=== PATIENT | female | born 1965 | race African-American/Black ===

== ENCOUNTER 2016-10-12 04:09 | Emergency (ER) | payer MEDICARE, OTHER ==
--- NOTE | 2016-10-12 05:04 | ED Physician Chart ---
Chief Complaint/HPI - Patient Information Date Seen:: 10/12/16 Time Seen:: 04:10 Chief Complaint:: Foot Pain History of Present Illness:: onset x 2 days of intermittent bilateral foot and ankle pain; no known injuries but pt states the foot/ankle pain occurs with movements; pt is ambulatory; no prolonged inactivity; no paresthesias, gait changes, weakness, or pain radiation ; denies C/P, dyspnea, abdominal pain, A/N/V/D/C, fever, chills, cough, hemoptysis, neck pain, H/As, vertigo, visual changes; no LOC, ALOC, syncope, or near-syncope Allergies:: Allergies Allergy/AdvReac Type Severity Reaction Status Date / Time Sulfa (Sulfonamide Allergy Verified 10/12/16 04:31 Antibiotics) Vitals:: Vital Signs - 8 hr 10/12/16 04:10 Temp 97.3 F HR 78 RR 19 BP 148/100 O2 Sat % 100 Historian:: Patient, EMS Review:: Nurse's Note Reviewed, Transfer documents Reviewed Review of Systems - Review of Systems General/Constitutional: Fever, Chills, No weight loss, No weakness, No diaphoresis, No edema, No loss of appetite Skin: No skin lesions, No rash, No bruising Head: No headache, No light-headedness Eyes: No loss of vision, No pain, No diplopia ENT: No earache, No nasal drainage, No sore throat, No tinnitus Neck: No neck pain, No swelling, No thyromegaly, No stiffness, No mass noted Cardio Vascular: No chest pain, No palpitations, No PND, No orthopnea, No edema Pulmonary: No SOB, No cough, No sputum, No wheezing GI: Nausea, Vomiting, Diarrhea, No pain, No melena, No hematochezia, Constipation, No hematemesis G/U: No dysuria, No frequency, No hematuria Golf Course Manager: No vaginal discharge, No abnormal vaginal bleed, No contraction Musculoskeletal: Bone or joint pain, No back pain, Muscle pain Endocrine: No polyuria, No polydipsia Psychiatric: Prior psych history, Depression, Anxiety, No suicidal ideation, No homicidal ideation, Auditory hallucination, Visual hallucination Hematopoietic: No bruising, No lymphadenopathy Allergic/Immuno: No urticaria, No angioedema Neurological: No syncope, No focal symptoms, No weakness, No paresthesia, No headache, No seizure, No dizziness, No confusion, No vertigo Past Medical History - Past Medical History Past Medical History: HTN, CHF, Arthritis, Other (Gout; Hemachromatosis) Family History: HTN Social History: Non Smoker, No Alcohol, No Drug Use, Single, Homeless, Lives Alone Surgical History: other (BTL) Psychiatricy History: Depression, Bipolar Medication: Reviewed Family Medical History - Family Member Mother History Unknown: Yes Physical Exam - Physical Examination General/Constitutional: Awake, Well-developed, well-nourished, Alert, No distress, GCS 15, Non-toxic appearing, Ambulatory Head: Atraumatic Eyes: Lids, conjuctiva normal, PERRL, EOMI Skin: Nl inspection, No rash, No skin lesions, No ecchymosis, Well hydrated, No lymphadenopathy Other Skin comments:: No Cellulitis ENMT: External ears, nose nl, Nasal exam nl, Lips, teeth, gums nl Neck: Nontender, Full ROM w/o pain, No JVD, No nuchal rigidity, No bruit, No mass, No stridor Respiratory: Nl effort/Exclusion, Clear to Auscultation, No Wheeze/Rhonchi/Rales Cardio Vascular: RRR, No murmur, gallop, rubs, NL S1 S2 GI: No tenderness/rebounding/guarding, No organomegaly, No hernia, Normal BS's, Nondistended, No mass/bruits, No McBurney tenderness : No CVA tenderness Extremities: No tenderness or effusion, Full ROM, normal strength in all extremities, No edema, Normal digits & nails Other Extremities comments:: No Cellulitis; no FBs Neuro/Psych: Alert/oriented, DTR's symmetric, Normal sensory exam, Normal motor strength, Judgement/insight normal, Mood normal, Normal gait, No focal deficits Misc: normal gait, Normal back, No paraspinal tenderness Labs/Radiology/EKG Results - Radiology Results Results: pt deferred X-Rays; pt deferred U/S Assessment - Procedures Procedures:: Splint applied to Right Ankle and Right Foot; Pt has Splint on Left Ankle and Foot and deferred a new Splint/Brace on Left Foot and Ankle and crutches Informed Consent: Procedure/risk/benefits explained by MD: Yes ED Septic Shock - . Is Septic Shock (SBP<90, OR Lactate>4 mmol\L) present?: No - <6hrs of presentation: Vital Signs: Vital Signs - 8 hr 10/12/16 04:10 Temp 97.3 F HR 78 RR 19 BP 148/100 O2 Sat % 100 Reassessment (Disposition) - Reassessment Reassessment Condition:: Improved - Diagnosis Diagnosis:: Sprains and Strains; Bilateral Foot and Ankle Sprains; Ankle and Foot Pain - Aftercare/Follow up Instructions Aftercare/Follow-Up Instructions:: Counseled pt regarding lab results/diagnosis & need follow up, Refer to Discharge Instructions, Counseled pt & family regarding lab results/diagnosis & need follow up Medication Prescribed:: Splints/Braces to Both Ankles and Feet; Use Crutches, Walker, and/or Cane - Patient Disposition Discharge/Transfer:: Home Condition at Disposition:: Stable, Improved (RTER prn if existing s/s reoccur and/or get worse and/or any new s/s occur; ACIs given for all Dx; Refer to Orthopedist/Prototype Deicer Assembler SHERRY; F/U with PMD in one day or prn; RTER prn if concerned)
== END 2016-10-12 09:38 | disposition home or self-care (01) ==
LOC: ER 04:09
DX: S93.401A Sprain of unspecified ligament of right ankle, initial encounter (principal); S93.402A Sprain of unspecified ligament of left ankle, initial encounter; S93.602A Unspecified sprain of left foot, initial encounter; S93.601A Unspecified sprain of right foot, initial encounter; I10 Essential (primary) hypertension; I11.0 Hypertensive heart disease with heart failure; I50.9 Heart failure, unspecified; F31.9 Bipolar disorder, unspecified; Z88.2 Allergy status to sulfonamides; X58.XXXA Exposure to other specified factors, initial encounter; Y93.89 Activity, other specified; Y92.89 Other specified places as the place of occurrence of the external cause; Y99.8 Other external cause status
CPT/HCPCS: Z7502

== ENCOUNTER 2018-06-22 22:41 | Inpatient (IN) | payer MEDICARE, MEDICAID ==
[2018-06-22] MEDS ORDERED: Haloperidol Lactate 5 mg/mL 1mL Vial ONE (23:08)
--- NOTE | 2018-06-22 23:12 | ED Physician Chart ---
ED Chief Complaint/HPI - Patient Information Date Seen:: 06/22/18 Time Seen:: 23:06 Chief Complaint:: increased agitation History of Present Illness:: 53 yr old female with agitation psychosis from [facility] with psychosis bipolar disorder gerd paranoid schizophrenia dvt rle depression anxiety impulse disorder gerd Allergies:: Allergies Allergy/AdvReac Type Severity Reaction Status Date / Time Sulfa (Sulfonamide Allergy Verified 06/22/18 22:45 Antibiotics) Vitals:: Vital Signs - 8 hr 06/22/18 22:45 Temp 98.1 F HR 85 RR 18 BP 140/70 O2 Sat % 97 ED Review of Systems - Review of Systems General/Constitutional: No fever, No chills, No weight loss, No weakness, No diaphoresis, No edema, No loss of appetite Skin: No skin lesions, No rash, No bruising Head: No headache, No light-headedness Eyes: No loss of vision, No pain, No diplopia ENT: No earache, No nasal drainage, No sore throat, No tinnitus Neck: No neck pain, No swelling, No thyromegaly, No stiffness, No mass noted Cardio Vascular: No chest pain, No palpitations, No PND, No orthopnea, No edema Pulmonary: No SOB, No cough, No sputum, No wheezing GI: No nausea, No vomiting, No diarrhea, No pain, No melena, No hematochezia, No constipation, No hematemesis G/U: No dysuria, No frequency, No hematuria Musculoskeletal: No bone or joint pain, No back pain, No muscle pain Endocrine: No polyuria, No polydipsia Psychiatric: No prior psych history, No depression, No anxiety, No suicidal ideation Hematopoietic: No bruising, No lymphadenopathy Allergic/Immuno: No urticaria, No angioedema Neurological: No syncope, No focal symptoms, No weakness, No paresthesia, No headache, No seizure, No dizziness, No confusion, No vertigo ED Past Medical History - Past Medical History Past Medical History: Other (see hpi) Family Medical History - Family Member Mother History Unknown: Yes ED Physical Exam - Physical Examination General/Constitutional: Awake Head: Atraumatic Eyes: Lids, conjuctiva normal Skin: Nl inspection ENMT: External ears, nose nl Neck: Nontender Respiratory: Nl effort/Exclusion Cardio Vascular: RRR GI: No tenderness/rebounding/guarding : No CVA tenderness Extremities: No tenderness or effusion Neuro/Psych: Alert/oriented (psychosis pt yelling screaming at staff was [facility] meds in [facility]) ED Labs/Radiology/EKG Results - Lab Results Results: Laboratory Tests 06/22/18 22:58 POC Glucose 126 H ED Assessment - Assessment General Assessment: psychosis agitation ED Septic Shock - . Is Septic Shock (SBP<90, OR Lactate>4 mmol\L) present?: No - <6hrs of presentation: Vital Signs: Vital Signs - 8 hr 06/22/18 22:45 Temp 98.1 F HR 85 RR 18 BP 140/70 O2 Sat % 97 ED Reassessment (Disposition) - Reassessment Reassessment:: psychosis agitation - Diagnosis Diagnosis:: bilateral om - Patient Disposition Discharge/Transfer:: Acute Care w/in this hosp Admitted to:: Med/Surg Condition at Disposition:: Stable
[2018-06-22 23:43] LABS: URINE SOURCE CLEAN C
[2018-06-22 23:56] LABS: INR 1.02 (0.5-1.4); PROTHROMBIN TIME (TEST) 10.6 SECONDS (9.5-11.5)
[2018-06-22 23:59] LABS: ALB/GLOB RATIO 1.2 (1.0-1.8); ALKALINE PHOSPHATASE 65 U/L (34-104); ANION GAP 13.1 (7.0-16.0); BILIRUBIN,TOTAL 0.7 mg/dL (0.3-1.0); BUN - UREA NITROGEN 13 mg/dL (7-25); CALCIUM SERUM 9.1 mg/dL (8.6-10.3); CARBON DIOXIDE 27.5 mEq/L (21.0-31.0); CHLORIDE 102 mEq/L (98-107); CREATININE - SERUM 0.7 mg/dL (0.6-1.2); GFR AFRICAN-AMERICAN > 60.0 ml/min (>90); GFR NON AFRICAN-AMERICAN > 60.0 ml/min; GLUCOSE 137 mg/dL (70-105); POTASSIUM SERUM 3.6 mEq/L (3.5-5.1); SGOT 35 U/L (13-39); SGPT/ALT 34 U/L (7-52); SODIUM SERUM 139 mEq/L (136-145); TOTAL PROTEIN,SERUM 7.4 gm/dL (6.0-8.3)
[2018-06-23 00:02] LABS: URINE BILIRUBIN NEGATIVE (NEGATIVE); URINE BLOOD NEGATIVE (NEGATIVE); URINE GLUCOSE (UA) NEGATIVE (NEGATIVE); URINE KETONE TRACE mg/dL (NEGATIVE); URINE LEUKOCYTE ESTERASE NEGATIVE (NEGATIVE); URINE NITRATE NEGATIVE (NEGATIVE); URINE PH 5.5 (4.6 - 8.0); URINE PROTEIN NEGATIVE (NEGATIVE); URINE UROBILINOGEN 0.2 E.U./dL (0.2 - 1.0)
[2018-06-23 00:11] LABS: URINE CLARITY CLEAR (CLEAR); URINE COLOR STRAW
[2018-06-23 00:12] LABS: URINE MICROSCOPIC INDICATED? YES
[2018-06-23 00:15] LABS: URINE BACTERIA NONE SEEN /hpf (NONE SEEN); URINE EPITHELIAL CELLS RARE /lpf (FEW); URINE RBC NONE SEEN /hpf (0-5); URINE WBC NONE SEEN /hpf (0-5)
[2018-06-23 00:30] LABS: AMPHETAMINE URINE NEGATIVE (NEGATIVE); BARBITURATES URINE NEGATIVE (NEGATIVE); BENZODIAZEPINES QUAL URINE NEGATIVE (NEGATIVE); CANNABINOID THC NEGATIVE (NEGATIVE); COCAINE METABOLITE QUAL URINE NEGATIVE (NEGATIVE); METHADONE URINE NEGATIVE (NEGATIVE); METHAMPHETAMINES QUAL URINE NEGATIVE (NEGATIVE); OPIATES (MORPHINE) QUAL. URINE NEGATIVE (NEGATIVE); PHENCYCLIDINE (PCP) URINE NEGATIVE (NEGATIVE); TRICYCLICS (TCA) QUAL. URINE NEGATIVE (NEGATIVE)
[2018-06-23 00:41] LABS: BASOPHILE ABSOLUTE 0.1 Th/cumm (0-0.2); EOSINOPHILE ABSOLUTE 0.1 Th/cmm (0.1-0.4); HEMATOCRIT 35.9 % (41.0-60); HEMOGLOBIN 12.1 gm/dL (12-16); LYMPHOCYTE ABSOLUTE 2.7 Th/cmm (1.5-3.0); MEAN CELL VOLUME 95.6 fl (81-100); MEAN CORPUSCULAR HEMOGLOBIN 32.3 pg (27.0-31.0); MEAN CORPUSCULAR HGB CONC 33.8 pg (28.0-36.0); MEAN PLATELET VOLUME 8.8 fl; NEUTROPHILE ABSOLUTE 2.7 Th/cmm (1.8-8.0); PLATELET COUNT 217 Th/cmm (150-400); RED BLOOD COUNT 3.75 Mil/cmm (3.80-5.10); RED CELL DISTRIBUTION WIDTH 12.7 % (11.5-20.0); WHITE BLOOD COUNT 6.6 Th/cmm (4.8-10.8)
[2018-06-23] MEDS ORDERED: Haloperidol Lactate 5 mg/mL 1mL Vial IM ONE ×2 (01:03→13:41)
[2018-06-23 01:15] LABS: LYMPHOCYTE 40 % (20-50); MONOCYTE 12 % (2-10); NEUTROPHILS 48 % (40-80)
[2018-06-23 01:52] VITALS: BP 140/70
[2018-06-23] MEDS ORDERED: Dextrose 50% 50 mL Abboject IVP PRN (02:20)
[2018-06-23] MEDS ORDERED: GLUCAGON HCl 1 MG KIT IM PRN (02:20)
[2018-06-23 02:37] LABS: CHOLESTEROL 132 mg/dL (<200); HDL -HIGH DENSITY LIPOPROTEIN 49 mg/dL (23-92); TRIGLYCERIDES 73 mg/dL (<150)
[2018-06-23] MEDS: INSULIN LISPRO SLIDING SCALE 100 UNITS/ML UNIT SUBQ SCH ×4 (06:53→20:39)
[2018-06-23] MEDS: Pantoprazole 40 mg/Packet PO SCH (06:54)
--- NOTE | 2018-06-23 13:46 | History & Physical ---
ADMIT DATE: 06/23/2018 CHIEF COMPLAINT: Increased agitation. HISTORY OF PRESENT ILLNESS: This is a 53-year-old female who is a jail resident, admitted to the Geropsych Unit due to 1-day history of agitation. PAST MEDICAL HISTORY: CHF, psychosis, type 2 diabetes, hypertension, GERD, DVT. SOCIAL HISTORY: The patient is a jail resident, requiring 24-hour nursing care. ALLERGIES: To SULFA. HOME MEDICATIONS: Please see medication list. REVIEW OF SYSTEMS: GENERAL: Denies any fever or chills. CARDIOVASCULAR: Denies chest pain. RESPIRATORY: Denies shortness of breath. GASTROINTESTINAL: Denies nausea, vomiting, abdominal pain. GENITOURINARY: Denies increased frequency or dysuria. NEUROLOGIC: Denies headaches, seizures, or syncope. All systems are reviewed and negative. PHYSICAL EXAMINATION: GENERAL: The patient is well developed, well nourished, in no apparent distress. VITAL SIGNS: Temperature 97.6, heart rate 98, blood pressure 112/71, respirations 19, O2 98%. HEENT: Head: Normocephalic, atraumatic. NECK: Supple. No mass. LUNGS: Clear bilaterally. HEART: Regular rhythm. ABDOMEN: Soft, nontender. LABORATORY DATA: WBC 6.6, H and H 12.1 and 35.9, platelet of 217. Sodium 139, potassium 3.6, chloride 102, BUN 13, creatinine 0.7. ASSESSMENT: Agitation, hypertension, congestive heart failure, history of deep venous thrombosis disease, gastroesophageal reflux disease. PLAN: We will continue the patient's medications, Xarelto, lisinopril. We will monitor the patient's glucose level as well. We will continue to monitor this patient. JOB# [id number]
[2018-06-23] MEDS ORDERED: Haloperidol Lactate 5 mg/mL 1mL Vial ONE (13:54)
[2018-06-23] MEDS: Insulin Glargine 100 units/ml 10ml Vial SUBQ SCH (20:40)
--- NOTE | 2018-06-23 23:42 | Psychiatric Evaluation ---
DATE OF SERVICE: 06/23/2018 CHIEF COMPLAINT: "Leave me alone." HISTORY OF PRESENT ILLNESS: The patient is a 53-year-old female with a history of schizoaffective disorder, transfer her longterm facility for increased agitation, anger outburst, threatening other patients, wants to strike out at staff, the patient at times has episodes where she is not compliant with her medications and would not give a reason why she would not take her pills. PAST PSYCHIATRIC HISTORY: Multiple hospitalizations, chronic history of mental illness. PAST MEDICAL HISTORY: Refer to H and P. PSYCHOSOCIAL HISTORY: The patient resides in a longterm, requires complete care. SUBSTANCE ABUSE HISTORY: Denied. MENTAL STATUS EXAMINATION: Speech is loud at times. Affect is dysphoric. The patient is oriented to person being in the hospital. The patient appears to be paranoid, suspicious, appears to be responding to internal stimuli. Insight is limited, judgment is impaired. The patient's strength: The patient is passively accepting treatment at this time. The patient's weakness: Lack of insight. ASSESSMENT: Schizophrenia versus schizoaffective disorder in psychotic phase. MEDICAL: As in medical history. PLAN: We will admit the patient for hospitalization. We will start individual and group therapy, will assess psychopharmacological intervention. ESTIMATED LENGTH OF STAY: 7 days. CRITERIA FOR DISCHARGE: Improved condition, no agitation, no aggressive behavior and safe disposition, outpatient treatment plan. JOB# [id number]
[2018-06-24] MEDS: INSULIN LISPRO SLIDING SCALE 100 UNITS/ML UNIT SUBQ SCH ×4 (06:46→20:46)
[2018-06-24] MEDS: Pantoprazole 40 mg/Packet PO SCH (06:47)
[2018-06-24] MEDS ORDERED: Dextrose 50% 50 mL Abboject IVP PRN (10:45)
[2018-06-24] MEDS ORDERED: GLUCAGON HCl 1 MG KIT IM PRN (10:45)
--- NOTE | 2018-06-24 14:41 | Internal Medicine Prog Note ---
Internal Medicine Subjective - Subjective Service Date: 06/24/18 Patient seen and examined:: with staff Patient is:: awake, confused Per staff patient has:: no adverse event, tolerating meds Internal Medicine Objective - Results Result Diagrams: 06/22/18 23:35 06/22/18 23:30 Recent Labs: Laboratory Last Values WBC 6.6 Th/cmm (4.8-10.8) 06/22/18 23:35 RBC 3.75 Mil/cmm (3.80-5.10) L 06/22/18 23:35 Hgb 12.1 gm/dL (12-16) 06/22/18 23:35 Hct 35.9 % (41.0-60) L 06/22/18 23:35 MCV 95.6 fl (81-100) 06/22/18 23:35 MCH 32.3 pg (27.0-31.0) H 06/22/18 23:35 MCHC Differential 33.8 pg (28.0-36.0) 06/22/18 23:35 RDW 12.7 % (11.5-20.0) 06/22/18 23:35 Plt Count 217 Th/cmm (150-400) 06/22/18 23:35 MPV 8.8 fl 06/22/18 23:35 Add Manual Diff YES 06/22/18 23:35 Neutrophils (Manual) 48 % (40-80) 06/22/18 23:35 Lymphocytes 40 % (20-50) 06/22/18 23:35 Monocytes 12 % (2-10) H 06/22/18 23:35 PT 10.6 SECONDS (9.5-11.5) 06/22/18 23:35 INR 1.02 (0.5-1.4) 06/22/18 23:35 PTT (Actin FS) 27.7 SECONDS (26.0-38.0) 06/22/18 23:35 Sodium 139 mEq/L (136-145) 06/22/18 23:30 Potassium 3.6 mEq/L (3.5-5.1) 06/22/18 23:30 Chloride 102 mEq/L (98-107) 06/22/18 23:30 Carbon Dioxide 27.5 mEq/L (21.0-31.0) 06/22/18 23:30 Anion Gap 13.1 (7.0-16.0) 06/22/18 23:30 BUN 13 mg/dL (7-25) 06/22/18 23:30 Creatinine 0.7 mg/dL (0.6-1.2) 06/22/18 23:30 Est GFR ( Amer) > 60.0 ml/min (>90) 06/22/18 23:30 Est GFR (Non-Af Amer) > 60.0 ml/min 06/22/18 23:30 BUN/Creatinine Ratio 18.6 06/22/18 23:30 Glucose 137 mg/dL (70-105) H 06/22/18 23:30 POC Glucose 185 MG/DL (70 - 105) H 06/23/18 19:38 Calcium 9.1 mg/dL (8.6-10.3) 06/22/18 23:30 Total Bilirubin 0.7 mg/dL (0.3-1.0) 06/22/18 23:30 AST 35 U/L (13-39) 06/22/18 23:30 ALT 34 U/L (7-52) 06/22/18 23:30 Alkaline Phosphatase 65 U/L (34-104) 06/22/18 23:30 Troponin I < 0.01 ng/mL (0.01-0.05) L 06/22/18 23:35 Total Protein 7.4 gm/dL (6.0-8.3) 06/22/18 23:30 Albumin 4.0 gm/dL (3.7-5.3) 06/22/18 23:30 Globulin 3.4 gm/dL 06/22/18 23:30 Albumin/Globulin Ratio 1.2 (1.0-1.8) 06/22/18 23:30 Triglycerides 73 mg/dL (<150) 06/23/18 00:00 Cholesterol 132 mg/dL (<200) 06/23/18 00:00 LDL Cholesterol Direct 81 mg/dL (75-193) 06/23/18 00:00 HDL Cholesterol 49 mg/dL (23-92) 06/23/18 00:00 Urine Source CLEAN C 06/22/18 23:15 Urine Color STRAW 06/22/18 23:15 Urine Clarity CLEAR (CLEAR) 06/22/18 23:15 Urine pH 5.5 (4.6 - 8.0) 06/22/18 23:15 Ur Specific [place] 1.015 (1.005-1.030) 06/22/18 23:15 Urine Protein NEGATIVE mg/dL (NEGATIVE) 06/22/18 23:15 Urine Glucose (UA) NEGATIVE mg/dL (NEGATIVE) 06/22/18 23:15 Urine Ketones TRACE mg/dL (NEGATIVE) 06/22/18 23:15 Urine Blood NEGATIVE (NEGATIVE) 06/22/18 23:15 Urine Nitrate NEGATIVE (NEGATIVE) 06/22/18 23:15 Urine Bilirubin NEGATIVE (NEGATIVE) 06/22/18 23:15 Urine Urobilinogen 0.2 E.U./dL (0.2 - 1.0) 06/22/18 23:15 Ur Leukocyte Esterase NEGATIVE (NEGATIVE) 06/22/18 23:15 Urine RBC NONE SEEN /hpf (0-5) 06/22/18 23:15 Urine WBC NONE SEEN /hpf (0-5) 06/22/18 23:15 Ur Epithelial Cells RARE /lpf (FEW) 06/22/18 23:15 Urine Bacteria NONE SEEN /hpf (NONE SEEN) 06/22/18 23:15 Urine Opiates Screen NEGATIVE (NEGATIVE) 06/22/18 23:15 Urine Methadone Screen NEGATIVE (NEGATIVE) 06/22/18 23:15 Ur Barbiturates Screen NEGATIVE (NEGATIVE) 06/22/18 23:15 Ur Tricyclics Screen NEGATIVE (NEGATIVE) 06/22/18 23:15 Ur Phencyclidine Scrn NEGATIVE (NEGATIVE) 06/22/18 23:15 Amphetamines Screen NEGATIVE (NEGATIVE) 06/22/18 23:15 U Methamphetamines Scrn NEGATIVE (NEGATIVE) 06/22/18 23:15 U Benzodiazepines Scrn NEGATIVE (NEGATIVE) 06/22/18 23:15 U Cocaine Metab Screen NEGATIVE (NEGATIVE) 06/22/18 23:15 U Cannabinoids Screen NEGATIVE (NEGATIVE) 06/22/18 23:15 - Physical Exam Vitals and I&O: Vital Signs Temp 98.0 F 06/24/18 05:56 Pulse 99 06/24/18 08:39 Resp 20 06/24/18 05:56 BP 115/57 06/24/18 08:39 Pulse Ox 95 06/24/18 05:56 Intake & Output 06/23/18 06/24/18 06/24/18 18:59 06:59 18:59 Intake Total 240 Balance 240 Intake: Oral 240 Other: # Voids 2 Active Medications: Current Medications Acetaminophen (Tylenol) 650 mg PO Q4HR PRN PRN Reason: Pain or Fever >101 Stop: 08/22/18 02:04 Acetaminophen/Hydrocodone Bitart ([place] 10 Mg/325 Mg) 1 tab PO Q6H PRN PRN Reason: Pain (Severe) Stop: 08/22/18 02:04 Carvedilol (Coreg) 3.125 mg PO BIDWM [facility] Stop: 08/22/18 07:59 Last Admin: 06/24/18 08:33 Dose: 3.125 mg Cyclobenzaprine HCl (Flexeril) 10 mg PO DAILY [facility] Stop: 08/22/18 08:59 Last Admin: 06/24/18 08:34 Dose: 10 mg Dextrose (Glutose 40%) 18.75 gm PO PRN PRN PRN Reason: Blood Glucose less than 70 Stop: 08/22/18 02:19 Dextrose (D50w) 50 ml IVP PRN PRN PRN Reason: Blood Glucose less than 70 Stop: 08/23/18 10:44 Dextrose (Glutose 40%) 18.75 gm PO UD PRN PRN Reason: Blood Glucose less than 70 Stop: 08/23/18 10:44 Divalproex Sodium (Depakote Dr) 500 mg PO BID [facility]; Protocol Stop: 08/22/18 08:59 Last Admin: 06/24/18 08:34 Dose: 500 mg Docusate Sodium (Colace) 100 mg PO DAILY [facility] Stop: 08/22/18 08:59 Last Admin: 06/24/18 08:36 Dose: 100 mg Folic Acid (Folate) 1 mg PO DAILY [facility] Stop: 08/22/18 08:59 Last Admin: 06/24/18 08:37 Dose: 1 mg Furosemide (Lasix) 20 mg PO BID [facility] Stop: 08/22/18 08:59 Last Admin: 06/24/18 08:37 Dose: 20 mg Glucagon (Glucagen) 1 mg IM PRN PRN PRN Reason: Blood Glucose less than 70 Stop: 08/23/18 10:44 Ibuprofen (Motrin) 800 mg PO Q8HR PRN PRN Reason: Pain (Moderate) Stop: 08/22/18 02:04 Insulin Glargine (Lantus Insulin) 15 units SUBQ HS [facility] Stop: 08/22/18 20:59 Last Admin: 06/23/18 20:40 Dose: 15 units Insulin Human Lispro (Humalog Insulin Sliding Scale) 0 units SUBQ ACHS [facility]; Protocol Stop: 08/22/18 07:29 Last Admin: 06/24/18 06:46 Dose: Not Given Insulin Human Lispro (Humalog Insulin Sliding Scale) 0 units SUBQ ACHS [facility]; Protocol Stop: 08/23/18 11:29 Lisinopril (Zestril) 10 mg PO DAILY [facility] Stop: 08/22/18 08:59 Last Admin: 06/24/18 08:39 Dose: 10 mg [place] Carbonate (Eskalith) 450 mg PO HS [facility]; Protocol Stop: 08/22/18 20:59 Last Admin: 06/23/18 20:38 Dose: 450 mg Loratadine (Claritin) 10 mg PO DAILY [facility] Stop: 08/22/18 08:59 Last Admin: 06/24/18 08:37 Dose: 10 mg Lorazepam (Ativan) 1 mg PO BID PRN; Protocol PRN Reason: Anxiety Stop: 08/22/18 02:04 Last Admin: 06/24/18 08:37 Dose: 1 mg Methocarbamol (Robaxin) 500 mg PO Q8HR PRN PRN Reason: MUSCLE SPASMS Stop: 08/22/18 02:04 Pantoprazole Sodium (Protonix) 20 mg PO QDAC [facility] Stop: 08/22/18 07:29 Last Admin: 06/24/18 06:47 Dose: 20 mg Pantoprazole Sodium (Protonix) 40 mg PO DAILY [facility] Stop: 08/24/18 08:59 Quetiapine Fumarate (Seroquel) 150 mg PO HS [facility]; Protocol Stop: 08/22/18 20:59 Last Admin: 06/23/18 20:38 Dose: 150 mg Quetiapine Fumarate (Seroquel) 50 mg PO DAILY [facility]; Protocol Stop: 08/23/18 08:59 Last Admin: 06/24/18 08:37 Dose: 50 mg Risperidone (Risperdal) 6 mg PO [facility]; Protocol Stop: 08/22/18 20:59 Last Admin: 06/23/18 20:38 Dose: 6 mg Rivaroxaban (Xarelto) 15 mg PO BID [facility] Stop: 08/22/18 08:59 Last Admin: 06/24/18 08:34 Dose: 15 mg Rivaroxaban (Xarelto) 15 mg PO BID [facility] Stop: 08/23/18 16:59 Zolpidem Tartrate (Ambien) 5 mg PO HS PRN PRN Reason: Insomnia Stop: 08/22/18 01:59 General: alert HEENT: NC/AT, PERRLA Neck: Supple Lungs: CTAB Cardiovascular: RRR, Normal S1, Normal S2, without murmur Abdomen: soft, non-tender, non-distended Extremities: excoriation Internal Medicine Assmt/Plan - Assessment Assessment: ASSESSMENT: Agitation, hypertension, congestive heart failure, history of deep venous thrombosis disease, gastroesophageal reflux disease. - Plan Plan: PLAN: We will continue the patient's medications, Xarelto, lisinopril. We will monitor the patient's glucose level as well. We will continue to monitor this patient.
--- NOTE | 2018-06-24 16:35 | Progress Notes ---
DATE: 06/24/2018 SUBJECTIVE: Staff was spoken to. The patient is interviewed. Mood is noted to be dysphoric. Coping skills are noted to be extremely poor. Sleep and appetite are noted to be poor. The patient has been trying to talk to the people on the phone, but the patient does not know where she has been contacting No side effects to the medication at this time. ASSESSMENT: The patient is still impulsive. PLAN: To continue the patient with the current medications and follow. JOB# [id number]
[2018-06-24] MEDS ORDERED: Non-Formulary Item 1 EA (Rivaroxaban [Xarelto] 15 MG) PO SCH (17:00)
[2018-06-24] MEDS: Insulin Glargine 100 units/ml 10ml Vial SUBQ SCH (20:46)
[2018-06-25] MEDS: Pantoprazole 40 mg/Packet PO SCH (06:37)
[2018-06-25] MEDS ORDERED: Non-Formulary Item 1 EA (Omeprazole [Omeprazole] 20 MG) PO SCH (09:00)
[2018-06-25] MEDS: INSULIN LISPRO SLIDING SCALE 100 UNITS/ML UNIT SUBQ SCH ×4 (09:04→20:07)
[2018-06-25] MEDS: Pantoprazole 40 mg EC Tab PO SCH (09:05)
--- NOTE | 2018-06-25 15:27 | Internal Medicine Prog Note ---
Internal Medicine Subjective - Subjective Patient seen and examined:: with staff, chart reviewed Patient is:: awake, verbal, interactive, confused Per staff patient has:: no adverse event, no episodes of fall, tolerating meds Internal Medicine Objective - Results Result Diagrams: 06/22/18 23:35 06/22/18 23:30 Recent Labs: Laboratory Last Values WBC 6.6 Th/cmm (4.8-10.8) 06/22/18 23:35 RBC 3.75 Mil/cmm (3.80-5.10) L 06/22/18 23:35 Hgb 12.1 gm/dL (12-16) 06/22/18 23:35 Hct 35.9 % (41.0-60) L 06/22/18:35 MCV 95.6 fl (81-100) 06/22/18 23:35 MCH 32.3 pg (27.0-31.0) H 06/22/18 23:35 MCHC Differential 33.8 pg (28.0-36.0) 06/22/18 23:35 RDW 12.7 % (11.5-20.0) 06/22/18 23:35 Plt Count 217 Th/cmm (150-400) 06/22/18 23:35 MPV 8.8 fl 06/22/18 23:35 Add Manual Diff YES 06/22/18 23:35 Neutrophils (Manual) 48 % (40-80) 06/22/18:35 Lymphocytes 40 % (20-50) 06/22/18 23:35 Monocytes 12 % (2-10) H 06/22/18 23:35 PT 10.6 SECONDS (9.5-11.5) 06/22/18 23:35 INR 1.02 (0.5-1.4) 06/22/18 23:35 PTT (Actin FS) 27.7 SECONDS (26.0-38.0) 06/22/18 23:35 Sodium 139 mEq/L (136-145) 06/22/18 23:30 Potassium 3.6 mEq/L (3.5-5.1) 06/22/18 23:30 Chloride 102 mEq/L (98-107) 06/22/18 23:30 Carbon Dioxide 27.5 mEq/L (21.0-31.0) 06/22/18 23:30 Anion Gap 13.1 (7.0-16.0) 06/22/18 23:30 BUN 13 mg/dL (7-25) 06/22/18 23:30 Creatinine 0.7 mg/dL (0.6-1.2) 06/22/18 23:30 Est GFR ( Amer) > 60.0 ml/min (>90) 06/22/18 23:30 Est GFR (Non-Af Amer) > 60.0 ml/min 06/22/18 23:30 BUN/Creatinine Ratio 18.6 06/22/18 23:30 Glucose 137 mg/dL (70-105) H 06/22/18 23:30 POC Glucose 185 MG/DL (70 - 105) H 06/23/18 19:38 Calcium 9.1 mg/dL (8.6-10.3) 06/22/18 23:30 Total Bilirubin 0.7 mg/dL (0.3-1.0) 06/22/18 23:30 AST 35 U/L (13-39) 06/22/18 23:30 ALT 34 U/L (7-52) 06/22/18 23:30 Alkaline Phosphatase 65 U/L (34-104) 06/22/18 23:30 Troponin I < 0.01 ng/mL (0.01-0.05) L 06/22/18 23:35 Total Protein 7.4 gm/dL (6.0-8.3) 06/22/18 23:30 Albumin 4.0 gm/dL (3.7-5.3) 06/22/18 23:30 Globulin 3.4 gm/dL 06/22/18 23:30 Albumin/Globulin Ratio 1.2 (1.0-1.8) 06/22/18 23:30 Triglycerides 73 mg/dL (<150) 06/23/18 00:00 Cholesterol 132 mg/dL (<200) 06/23/18 00:00 LDL Cholesterol Direct 81 mg/dL (75-193) 06/23/18 00:00 HDL Cholesterol 49 mg/dL (23-92) 06/23/18 00:00 Urine Source CLEAN C 06/22/18 23:15 Urine Color STRAW 06/22/18 23:15 Urine Clarity CLEAR (CLEAR) 06/22/18 23:15 Urine pH 5.5 (4.6 - 8.0) 06/22/18 23:15 Ur Specific [place] 1.015 (1.005-1.030) 06/22/18 23:15 Urine Protein NEGATIVE mg/dL (NEGATIVE) 06/22/18 23:15 Urine Glucose (UA) NEGATIVE mg/dL (NEGATIVE) 06/22/18 23:15 Urine Ketones TRACE mg/dL (NEGATIVE) 06/22/18 23:15 Urine Blood NEGATIVE (NEGATIVE) 06/22/18 23:15 Urine Nitrate NEGATIVE (NEGATIVE) 06/22/18 23:15 Urine Bilirubin NEGATIVE (NEGATIVE) 06/22/18 23:15 Urine Urobilinogen 0.2 E.U./dL (0.2 - 1.0) 06/22/18 23:15 Ur Leukocyte Esterase NEGATIVE (NEGATIVE) 06/22/18 23:15 Urine RBC NONE SEEN /hpf (0-5) 06/22/18 23:15 Urine WBC NONE SEEN /hpf (0-5) 06/22/18 23:15 Ur Epithelial Cells RARE /lpf (FEW) 06/22/18 23:15 Urine Bacteria NONE SEEN /hpf (NONE SEEN) 06/22/18 23:15 Urine Opiates Screen NEGATIVE (NEGATIVE) 06/22/18 23:15 Urine Methadone Screen NEGATIVE (NEGATIVE) 06/22/18 23:15 Ur Barbiturates Screen NEGATIVE (NEGATIVE) 06/22/18 23:15 Ur Tricyclics Screen NEGATIVE (NEGATIVE) 06/22/18 23:15 Ur Phencyclidine Scrn NEGATIVE (NEGATIVE) 06/22/18 23:15 Amphetamines Screen NEGATIVE (NEGATIVE) 06/22/18 23:15 U Methamphetamines Scrn NEGATIVE (NEGATIVE) 06/22/18 23:15 U Benzodiazepines Scrn NEGATIVE (NEGATIVE) 06/22/18 23:15 U Cocaine Metab Screen NEGATIVE (NEGATIVE) 06/22/18 23:15 U Cannabinoids Screen NEGATIVE (NEGATIVE) 06/22/18 23:15 - Physical Exam Vitals and I&O: Vital Signs Temp 98.1 F 06/25/18 06:27 Pulse 93 06/25/18 09:00 Resp 18 06/25/18 06:27 BP 117/75 06/25/18 09:05 Pulse Ox 98 06/25/18 06:27 Intake & Output 06/24/18 06/25/18 06/25/18 18:59 06:59 18:59 Intake Total 900 480 Output Total 1 Balance 900 479 Intake: Oral 900 480 Output: Urine/Stool Mix 1 Other: # Voids 3 1 # Bowel Movements 1 Active Medications: Current Medications Acetaminophen (Tylenol) 650 mg PO Q4HR PRN PRN Reason: Pain or Fever >101 Stop: 08/22/18 02:04 Acetaminophen/Hydrocodone Bitart ([place] 10 Mg/325 Mg) 1 tab PO Q6H PRN PRN Reason: Pain (Severe) Stop: 08/22/18 02:04 Carvedilol (Coreg) 3.125 mg PO BIDWM [facility] Stop: 08/22/18 07:59 Last Admin: 06/25/18 09:00 Dose: 3.125 mg Cyclobenzaprine HCl (Flexeril) 10 mg PO DAILY [facility] Stop: 08/22/18 08:59 Last Admin: 06/25/18 09:04 Dose: 10 mg Dextrose (Glutose 40%) 18.75 gm PO PRN PRN PRN Reason: Blood Glucose less than 70 Stop: 08/22/18 02:19 Dextrose (D50w) 50 ml IVP PRN PRN PRN Reason: Blood Glucose less than 70 Stop: 08/23/18 10:44 Dextrose (Glutose 40%) 18.75 gm PO UD PRN PRN Reason: Blood Glucose less than 70 Stop: 08/23/18 10:44 Divalproex Sodium (Depakote Dr) 500 mg PO BID [facility]; Protocol Stop: 08/22/18 08:59 Last Admin: 06/25/18 09:04 Dose: 500 mg Docusate Sodium (Colace) 100 mg PO DAILY [facility] Stop: 08/22/18 08:59 Last Admin: 06/25/18 09:04 Dose: 100 mg Folic Acid (Folate) 1 mg PO DAILY [facility] Stop: 08/22/18 08:59 Last Admin: 06/25/18 09:05 Dose: 1 mg Furosemide (Lasix) 20 mg PO BID [facility] Stop: 08/22/18 08:59 Last Admin: 06/25/18 09:05 Dose: 20 mg Glucagon (Glucagen) 1 mg IM PRN PRN PRN Reason: Blood Glucose less than 70 Stop: 08/23/18 10:44 Ibuprofen (Motrin) 800 mg PO Q8HR PRN PRN Reason: Pain (Moderate) Stop: 08/22/18 02:04 Insulin Glargine (Lantus Insulin) 15 units SUBQ HS [facility] Stop: 08/22/18 20:59 Last Admin: 06/24/18 20:46 Dose: 15 units Insulin Human Lispro (Humalog Insulin Sliding Scale) 0 units SUBQ ACHS [facility]; Protocol Stop: 08/23/18 11:29 Last Admin: 06/25/18 11:57 Dose: Not Given Lisinopril (Zestril) 10 mg PO DAILY [facility] Stop: 08/22/18 08:59 Last Admin: 06/25/18 09:00 Dose: 10 mg [place] Carbonate (Eskalith) 450 mg PO HS [facility]; Protocol Stop: 08/22/18 20:59 Last Admin: 06/24/18 20:45 Dose: 450 mg Loratadine (Claritin) 10 mg PO DAILY [facility] Stop: 08/22/18 08:59 Last Admin: 06/25/18 09:05 Dose: 10 mg Lorazepam (Ativan) 1 mg PO BID PRN; Protocol PRN Reason: Anxiety Stop: 08/22/18 02:04 Last Admin: 06/24/18 08:37 Dose: 1 mg Methocarbamol (Robaxin) 500 mg PO Q8HR PRN PRN Reason: MUSCLE SPASMS Stop: 08/22/18 02:04 Pantoprazole Sodium (Protonix) 20 mg PO QDAC [facility] Stop: 08/22/18 07:29 Last Admin: 06/25/18 06:37 Dose: 20 mg Pantoprazole Sodium (Protonix) 40 mg PO DAILY [facility] Stop: 08/24/18 08:59 Last Admin: 06/25/18 09:05 Dose: 40 mg Quetiapine Fumarate (Seroquel) 150 mg PO HS [facility]; Protocol Stop: 08/22/18 20:59 Last Admin: 06/24/18 20:45 Dose: 150 mg Quetiapine Fumarate (Seroquel) 50 mg PO DAILY [facility]; Protocol Stop: 08/23/18 08:59 Last Admin: 06/25/18 09:05 Dose: 50 mg Risperidone (Risperdal) 6 mg PO HS [facility]; Protocol Stop: 08/22/18 20:59 Last Admin: 06/24/18 20:45 Dose: 6 mg Rivaroxaban (Xarelto) 15 mg PO BID [facility] Stop: 08/22/18 08:59 Last Admin: 06/25/18 08:59 Dose: 15 mg Rivaroxaban (Xarelto) 15 mg PO BID [facility] Stop: 08/23/18 16:59 Last Admin: 06/25/18 09:04 Dose: 15 mg Zolpidem Tartrate (Ambien) 5 mg PO HS PRN PRN Reason: Insomnia Stop: 08/22/18 01:59 General: demented HEENT: NC/AT, PERRLA Neck: Supple Lungs: CTAB Cardiovascular: RRR, Normal S1, Normal S2, without murmur Abdomen: soft, non-tender, non-distended Extremities: excoriation Neurological: no change Internal Medicine Assmt/Plan - Assessment Assessment: - Assessment Assessment: ASSESSMENT: Agitation, hypertension, congestive heart failure, history of deep venous thrombosis disease, gastroesophageal reflux disease. - Plan Plan: PLAN: We will continue the patient's medications, Xarelto, lisinopril. We will monitor the patient's glucose level as well. We will continue to monitor this patient. - Plan Plan: seen w sushant
[2018-06-25] MEDS: Hydrocodone/APAP 10 mg/325 mg Tab PO PRN (20:04)
[2018-06-25] MEDS: Insulin Glargine 100 units/ml 10ml Vial SUBQ SCH (20:13)
--- NOTE | 2018-06-25 22:28 | Consultation ---
DATE OF CONSULTATION: 06/25/2018 REFERRING PHYSICIAN: Jah Sepulveda M.D. TYPE OF CONSULTATION: Psychology. HISTORY OF PRESENT ILLNESS: The patient is a 53-year-old -Polish female. The following is by review of the medical record and by the patient's self-report. The patient is being admitted due to increased agitation, anger outbursts, threatening other patients and striking out at staff. The report also includes the patient has been noncompliant with her medications. Upon interview, the patient did not state why she is not taking her medication. The patient is using profanity and is angry as well as easily agitated and difficult to contain. The patient did not answer questions about experiencing suicidal or homicidal ideation, plan or intention. PAST MEDICAL HISTORY: Please see history and physical. PAST PSYCHIATRIC HISTORY: The patient has a history of multiple hospitalizations. The patient has a history of schizoaffective disorder. The patient is under the care of a psychiatrist at her placement. SUBSTANCE ABUSE HISTORY: The patient did not answer these questions. PSYCHOSOCIAL HISTORY: The patient did not answer questions about occupational or educational history or evangelical affiliation. She did not answer questions about current legal problems or history of physical or sexual abuse. The patient was guarded and selectively mute with intermittent loud anger outbursts that were verbally abusive. MENTAL STATUS EXAMINATION: The patient appears to be her stated age. The patient's attitude is guarded and suspicious. Speech is loud and yelling with profanity. Eye contact is fair. Mood is angry and irritable. Affect is mood congruent and animated. Thought process shows the patient to possibly be responding to internal stimuli. Thought process is disorganized with loose associations. The patient appears to be perseverating on a recent medical issue. The patient denied any auditory or visual hallucinations; however, the patient is responding to an inner dialogue. There is evidence of paranoid ideation. The patient's behavior has been poorly redirectable and almost uncontainable on the unit. The patient has received emergency medication for this. Impulse control is inadequate and impaired. Concentration is poor. The patient did not participate in the memory assessment. Sensorium is alert and oriented to self and place only. The patient did not participate in the interpretation of proverbs. Insight is impaired. Judgment is impaired. DIAGNOSTIC IMPRESSION: AXIS I: 1. History of schizoaffective disorder. 2. Provisional diagnosis of schizophrenia versus schizoaffective disorder. AXIS II: Deferred. AXIS III: Please see history and physical. TREATMENT/PLAN: The patient has been seen by Dr. Sepulveda for psychiatric evaluation and for the management of the patient's psychotropic medications. We will provide supportive psychotherapy and individual and group therapy to include reality orientation, differentiation and integration. We will provide de-escalation and limit setting. We will provide anger management. We will encourage the patient to demonstrate emotional and self-regulation and follow through with staff direction. We will provide coping strategies for chronic severe mental illness. We will provide behavioral management to reduce the incidence of inappropriate behaviors including verbal abuse and use of profanity. We will provide daily opportunities for the patient to verbally contract for safety for no self-harm as well as no harm to others. We will encourage her to verbalize her concerns versus aggressive behavior including striking out behaviors. Thank you, Dr. Sepulveda for this consult and the opportunity to participate in this patient's care. [facility]# [id number] [facility]ITALKristal
--- NOTE | 2018-06-26 00:03 | Progress Notes ---
DATE: 06/25/2018 SUBJECTIVE: Staff was spoken to. The patient is interviewed. The patient is noted to be very irritable and angry and very dysphoric. Insight and judgment are noted to be still impaired. Impulse control is noted to be limited. The patient is still testing the limits. The patient, however, has been able to tolerate the Depakote and lithium. PLAN: To continue the patient with the above medications and follow. [facility]# [id number]
[2018-06-26] MEDS ORDERED: Magnesium Hydroxide (MOM) 30 mL UDC PO PRN (03:50)
[2018-06-26] MEDS: INSULIN LISPRO SLIDING SCALE 100 UNITS/ML UNIT SUBQ SCH ×4 (06:58→20:16)
[2018-06-26] MEDS: Pantoprazole 40 mg/Packet PO SCH (06:58)
--- NOTE | 2018-06-26 11:52 | Internal Medicine Prog Note ---
Internal Medicine Subjective - Subjective Patient seen and examined:: with staff, chart reviewed Patient is:: awake, verbal, interactive, confused Per staff patient has:: no adverse event, no episodes of fall, tolerating meds Internal Medicine Objective - Results Result Diagrams: 06/22/18 23:35 06/22/18 23:30 Recent Labs: Laboratory Last Values WBC 6.6 Th/cmm (4.8-10.8) 06/22/18 23:35 RBC 3.75 Mil/cmm (3.80-5.10) L 06/22/18 23:35 Hgb 12.1 gm/dL (12-16) 06/22/18 23:35 Hct 35.9 % (41.0-60) L 06/22/18:35 MCV 95.6 fl (81-100) 06/22/18 23:35 MCH 32.3 pg (27.0-31.0) H 06/22/18 23:35 MCHC Differential 33.8 pg (28.0-36.0) 06/22/18 23:35 RDW 12.7 % (11.5-20.0) 06/22/18 23:35 Plt Count 217 Th/cmm (150-400) 06/22/18 23:35 MPV 8.8 fl 06/22/18 23:35 Add Manual Diff YES 06/22/18 23:35 Neutrophils (Manual) 48 % (40-80) 06/22/18:35 Lymphocytes 40 % (20-50) 06/22/18 23:35 Monocytes 12 % (2-10) H 06/22/18 23:35 PT 10.6 SECONDS (9.5-11.5) 06/22/18 23:35 INR 1.02 (0.5-1.4) 06/22/18 23:35 PTT (Actin FS) 27.7 SECONDS (26.0-38.0) 06/22/18 23:35 Sodium 139 mEq/L (136-145) 06/22/18 23:30 Potassium 3.6 mEq/L (3.5-5.1) 06/22/18 23:30 Chloride 102 mEq/L (98-107) 06/22/18 23:30 Carbon Dioxide 27.5 mEq/L (21.0-31.0) 06/22/18 23:30 Anion Gap 13.1 (7.0-16.0) 06/22/18 23:30 BUN 13 mg/dL (7-25) 06/22/18 23:30 Creatinine 0.7 mg/dL (0.6-1.2) 06/22/18 23:30 Est GFR ( Amer) > 60.0 ml/min (>90) 06/22/18 23:30 Est GFR (Non-Af Amer) > 60.0 ml/min 06/22/18 23:30 BUN/Creatinine Ratio 18.6 06/22/18 23:30 Glucose 137 mg/dL (70-105) H 06/22/18 23:30 POC Glucose 100 MG/DL (70 - 105) 06/26/18 06:18 Calcium 9.1 mg/dL (8.6-10.3) 06/22/18 23:30 Total Bilirubin 0.7 mg/dL (0.3-1.0) 06/22/18 23:30 AST 35 U/L (13-39) 06/22/18 23:30 ALT 34 U/L (7-52) 06/22/18 23:30 Alkaline Phosphatase 65 U/L (34-104) 06/22/18 23:30 Troponin I < 0.01 ng/mL (0.01-0.05) L 06/22/18 23:35 Total Protein 7.4 gm/dL (6.0-8.3) 06/22/18 23:30 Albumin 4.0 gm/dL (3.7-5.3) 06/22/18 23:30 Globulin 3.4 gm/dL 06/22/18 23:30 Albumin/Globulin Ratio 1.2 (1.0-1.8) 06/22/18 23:30 Triglycerides 73 mg/dL (<150) 06/23/18 00:00 Cholesterol 132 mg/dL (<200) 06/23/18 00:00 LDL Cholesterol Direct 81 mg/dL (75-193) 06/23/18 00:00 HDL Cholesterol 49 mg/dL (23-92) 06/23/18 00:00 Urine Source CLEAN C 06/22/18 23:15 Urine Color STRAW 06/22/18 23:15 Urine Clarity CLEAR (CLEAR) 06/22/18 23:15 Urine pH 5.5 (4.6 - 8.0) 06/22/18 23:15 Ur Specific [place] 1.015 (1.005-1.030) 06/22/18 23:15 Urine Protein NEGATIVE mg/dL (NEGATIVE) 06/22/18 23:15 Urine Glucose (UA) NEGATIVE mg/dL (NEGATIVE) 06/22/18 23:15 Urine Ketones TRACE mg/dL (NEGATIVE) 06/22/18 23:15 Urine Blood NEGATIVE (NEGATIVE) 06/22/18 23:15 Urine Nitrate NEGATIVE (NEGATIVE) 06/22/18 23:15 Urine Bilirubin NEGATIVE (NEGATIVE) 06/22/18 23:15 Urine Urobilinogen 0.2 E.U./dL (0.2 - 1.0) 06/22/18 23:15 Ur Leukocyte Esterase NEGATIVE (NEGATIVE) 06/22/18 23:15 Urine RBC NONE SEEN /hpf (0-5) 06/22/18 23:15 Urine WBC NONE SEEN /hpf (0-5) 06/22/18 23:15 Ur Epithelial Cells RARE /lpf (FEW) 06/22/18 23:15 Urine Bacteria NONE SEEN /hpf (NONE SEEN) 06/22/18 23:15 Urine Opiates Screen NEGATIVE (NEGATIVE) 06/22/18 23:15 Urine Methadone Screen NEGATIVE (NEGATIVE) 06/22/18 23:15 Ur Barbiturates Screen NEGATIVE (NEGATIVE) 06/22/18 23:15 Ur Tricyclics Screen NEGATIVE (NEGATIVE) 06/22/18 23:15 Ur Phencyclidine Scrn NEGATIVE (NEGATIVE) 06/22/18 23:15 Amphetamines Screen NEGATIVE (NEGATIVE) 06/22/18 23:15 U Methamphetamines Scrn NEGATIVE (NEGATIVE) 06/22/18 23:15 U Benzodiazepines Scrn NEGATIVE (NEGATIVE) 06/22/18 23:15 U Cocaine Metab Screen NEGATIVE (NEGATIVE) 06/22/18 23:15 U Cannabinoids Screen NEGATIVE (NEGATIVE) 06/22/18 23:15 - Physical Exam Vitals and I&O: Vital Signs Temp 98 F 06/26/18 06:21 Pulse 71 06/26/18 06:21 Resp 20 06/26/18 06:21 BP 113/73 06/26/18 06:21 Pulse Ox 98 06/26/18 06:21 Intake & Output 06/25/18 06/26/18 06/26/18 18:59 06:59 18:59 Intake Total 720 Balance 720 Intake: Oral 720 Other: # Voids 1 Active Medications: Current Medications Acetaminophen (Tylenol) 650 mg PO Q4HR PRN PRN Reason: Pain or Fever >101 Stop: 08/22/18 02:04 Acetaminophen/Hydrocodone Bitart ([place] 10 Mg/325 Mg) 1 tab PO Q6H PRN PRN Reason: Pain (Severe) Stop: 08/22/18 02:04 Last Admin: 06/25/18 20:04 Dose: 1 tab Carvedilol (Coreg) 3.125 mg PO BIDWM [facility] Stop: 08/22/18 07:59 Last Admin: 06/25/18 17:30 Dose: 3.125 mg Cyclobenzaprine HCl (Flexeril) 10 mg PO DAILY [facility] Stop: 08/22/18 08:59 Last Admin: 06/25/18 09:04 Dose: 10 mg Dextrose (Glutose 40%) 18.75 gm PO PRN PRN PRN Reason: Blood Glucose less than 70 Stop: 08/22/18 02:19 Dextrose (D50w) 50 ml IVP PRN PRN PRN Reason: Blood Glucose less than 70 Stop: 08/23/18 10:44 Dextrose (Glutose 40%) 18.75 gm PO UD PRN PRN Reason: Blood Glucose less than 70 Stop: 08/23/18 10:44 Divalproex Sodium (Depakote Dr) 500 mg PO BID [facility]; Protocol Stop: 08/22/18 08:59 Last Admin: 06/25/18 16:58 Dose: Not Given Docusate Sodium (Colace) 100 mg PO DAILY [facility] Stop: 08/22/18 08:59 Last Admin: 06/25/18 09:04 Dose: 100 mg Folic Acid (Folate) 1 mg PO DAILY [facility] Stop: 08/22/18 08:59 Last Admin: 06/25/18 09:05 Dose: 1 mg Furosemide (Lasix) 20 mg PO BID [facility] Stop: 08/22/18 08:59 Last Admin: 06/25/18 16:59 Dose: 20 mg Glucagon (Glucagen) 1 mg IM PRN PRN PRN Reason: Blood Glucose less than 70 Stop: 08/23/18 10:44 Ibuprofen (Motrin) 800 mg PO Q8HR PRN PRN Reason: Pain (Moderate) Stop: 08/22/18 02:04 Insulin Glargine (Lantus Insulin) 15 units SUBQ HS [facility] Stop: 08/22/18 20:59 Last Admin: 06/25/18 20:13 Dose: Not Given Insulin Human Lispro (Humalog Insulin Sliding Scale) 0 units SUBQ ACHS [facility]; Protocol Stop: 08/23/18 11:29 Last Admin: 06/26/18 06:58 Dose: Not Given Lisinopril (Zestril) 10 mg PO DAILY [facility] Stop: 08/22/18 08:59 Last Admin: 06/25/18 09:00 Dose: 10 mg [place] Carbonate (Eskalith) 450 mg PO HS [facility]; Protocol Stop: 08/22/18 20:59 Last Admin: 06/25/18 20:02 Dose: 450 mg Loratadine (Claritin) 10 mg PO DAILY [facility] Stop: 08/22/18 08:59 Last Admin: 06/25/18 09:05 Dose: 10 mg Lorazepam (Ativan) 1 mg PO BID PRN; Protocol PRN Reason: Anxiety Stop: 08/22/18 02:04 Last Admin: 06/24/18 08:37 Dose: 1 mg Magnesium Hydroxide (Milk Of Magnesia) 30 ml PO HS PRN PRN Reason: Constipation Stop: 08/25/18 03:49 Last Admin: 06/26/18 04:03 Dose: 30 ml Methocarbamol (Robaxin) 500 mg PO Q8HR PRN PRN Reason: MUSCLE SPASMS Stop: 08/22/18 02:04 Pantoprazole Sodium (Protonix) 20 mg PO QDAC [facility] Stop: 08/22/18 07:29 Last Admin: 06/26/18 06:58 Dose: Not Given Pantoprazole Sodium (Protonix) 40 mg PO DAILY [facility] Stop: 08/24/18 08:59 Last Admin: 06/25/18 09:05 Dose: 40 mg Quetiapine Fumarate (Seroquel) 150 mg PO HS [facility]; Protocol Stop: 08/22/18 20:59 Last Admin: 06/25/18 20:05 Dose: 150 mg Quetiapine Fumarate (Seroquel) 50 mg PO DAILY [facility]; Protocol Stop: 08/23/18 08:59 Last Admin: 06/25/18 09:05 Dose: 50 mg Risperidone (Risperdal) 6 mg PO HS [facility]; Protocol Stop: 08/22/18 20:59 Last Admin: 06/25/18 20:06 Dose: 6 mg Rivaroxaban (Xarelto) 15 mg PO BID [facility] Stop: 08/22/18 08:59 Last Admin: 06/25/18 16:58 Dose: 15 mg Rivaroxaban (Xarelto) 15 mg PO BID [facility] Stop: 08/23/18 16:59 Last Admin: 06/25/18 17:32 Dose: 15 mg Zolpidem Tartrate (Ambien) 5 mg PO HS PRN PRN Reason: Insomnia Stop: 08/22/18 01:59 General: demented HEENT: NC/AT, PERRLA Neck: Supple Lungs: CTAB Cardiovascular: RRR, Normal S1, Normal S2, without murmur Abdomen: soft, non-tender, non-distended Extremities: excoriation Neurological: no change Internal Medicine Assmt/Plan - Assessment Assessment: - Assessment Assessment: ASSESSMENT: Agitation, hypertension, congestive heart failure, history of deep venous thrombosis disease, gastroesophageal reflux disease. - Plan Plan: PLAN: We will continue the patient's medications, Xarelto, lisinopril. We will monitor the patient's glucose level as well. We will continue to monitor this patient. - Plan Plan: seen nikhil canchola
[2018-06-26] MEDS: Pantoprazole 40 mg EC Tab PO SCH (12:27)
[2018-06-26] MEDS: Hydrocodone/APAP 10 mg/325 mg Tab PO PRN (20:15)
[2018-06-26] MEDS: Insulin Glargine 100 units/ml 10ml Vial SUBQ SCH (20:17)
--- NOTE | 2018-06-27 04:52 | Progress Notes ---
DATE: 06/26/2018 SUBJECTIVE: Staff was spoken to. The patient is interviewed. Mood is noted to be irritable. Affect is constricted. Later, the mood swings, even with the 500 mg of the Depakote. The patient is getting easily paranoid. The patient is currently on 150 mg of the Seroquel at night time and 50 mg in the morning. In view of the psychosis and the impulsivity, it is decided to increase the dose on the Seroquel 200 mg at bedtime and continue the 50 mg in the morning. I encouraged the patient to verbalize the concerns rather than to act out. The patient is insisting that she has a place to return and she has a place to go and she would like to talk to the director of casework and returned back to the facility. nurse outreach case manager has been requested to look into it. ASSESSMENT: The patient is still psychotic and increase the dose on the medication and closely monitor the patient. JOB# [id number]
[2018-06-27] MEDS: INSULIN LISPRO SLIDING SCALE 100 UNITS/ML UNIT SUBQ SCH ×4 (07:04→20:45)
[2018-06-27] MEDS: Pantoprazole 40 mg/Packet PO SCH (07:04)
[2018-06-27] MEDS: Pantoprazole 40 mg EC Tab PO SCH (08:37)
--- NOTE | 2018-06-27 12:14 | Internal Medicine Prog Note ---
Internal Medicine Subjective - Subjective Patient seen and examined:: with staff, chart reviewed Patient is:: awake, verbal, interactive, confused Per staff patient has:: no adverse event, no episodes of fall, tolerating meds Internal Medicine Objective - Results Result Diagrams: 06/22/18 23:35 06/22/18 23:30 Recent Labs: Laboratory Last Values WBC 6.6 Th/cmm (4.8-10.8) 06/22/18 23:35 RBC 3.75 Mil/cmm (3.80-5.10) L 06/22/18 23:35 Hgb 12.1 gm/dL (12-16) 06/22/18 23:35 Hct 35.9 % (41.0-60) L 06/22/18:35 MCV 95.6 fl (81-100) 06/22/18 23:35 MCH 32.3 pg (27.0-31.0) H 06/22/18 23:35 MCHC Differential 33.8 pg (28.0-36.0) 06/22/18 23:35 RDW 12.7 % (11.5-20.0) 06/22/18 23:35 Plt Count 217 Th/cmm (150-400) 06/22/18 23:35 MPV 8.8 fl 06/22/18 23:35 Add Manual Diff YES 06/22/18 23:35 Neutrophils (Manual) 48 % (40-80) 06/22/18:35 Lymphocytes 40 % (20-50) 06/22/18 23:35 Monocytes 12 % (2-10) H 06/22/18 23:35 PT 10.6 SECONDS (9.5-11.5) 06/22/18 23:35 INR 1.02 (0.5-1.4) 06/22/18 23:35 PTT (Actin FS) 27.7 SECONDS (26.0-38.0) 06/22/18 23:35 Sodium 139 mEq/L (136-145) 06/22/18 23:30 Potassium 3.6 mEq/L (3.5-5.1) 06/22/18 23:30 Chloride 102 mEq/L (98-107) 06/22/18 23:30 Carbon Dioxide 27.5 mEq/L (21.0-31.0) 06/22/18 23:30 Anion Gap 13.1 (7.0-16.0) 06/22/18 23:30 BUN 13 mg/dL (7-25) 06/22/18 23:30 Creatinine 0.7 mg/dL (0.6-1.2) 06/22/18 23:30 Est GFR ( Amer) > 60.0 ml/min (>90) 06/22/18 23:30 Est GFR (Non-Af Amer) > 60.0 ml/min 06/22/18 23:30 BUN/Creatinine Ratio 18.6 06/22/18 23:30 Glucose 137 mg/dL (70-105) H 06/22/18 23:30 POC Glucose 126 MG/DL (70 - 105) H 06/27/18 12:06 Calcium 9.1 mg/dL (8.6-10.3) 06/22/18 23:30 Total Bilirubin 0.7 mg/dL (0.3-1.0) 06/22/18 23:30 AST 35 U/L (13-39) 06/22/18 23:30 ALT 34 U/L (7-52) 06/22/18 23:30 Alkaline Phosphatase 65 U/L (34-104) 06/22/18 23:30 Troponin I < 0.01 ng/mL (0.01-0.05) L 06/22/18 23:35 Total Protein 7.4 gm/dL (6.0-8.3) 06/22/18 23:30 Albumin 4.0 gm/dL (3.7-5.3) 06/22/18 23:30 Globulin 3.4 gm/dL 06/22/18 23:30 Albumin/Globulin Ratio 1.2 (1.0-1.8) 06/22/18 23:30 Triglycerides 73 mg/dL (<150) 06/23/18 00:00 Cholesterol 132 mg/dL (<200) 06/23/18 00:00 LDL Cholesterol Direct 81 mg/dL (75-193) 06/23/18 00:00 HDL Cholesterol 49 mg/dL (23-92) 06/23/18 00:00 Urine Source CLEAN C 06/22/18 23:15 Urine Color STRAW 06/22/18 23:15 Urine Clarity CLEAR (CLEAR) 06/22/18 23:15 Urine pH 5.5 (4.6 - 8.0) 06/22/18 23:15 Ur Specific [place] 1.015 (1.005-1.030) 06/22/18 23:15 Urine Protein NEGATIVE mg/dL (NEGATIVE) 06/22/18 23:15 Urine Glucose (UA) NEGATIVE mg/dL (NEGATIVE) 06/22/18 23:15 Urine Ketones TRACE mg/dL (NEGATIVE) 06/22/18 23:15 Urine Blood NEGATIVE (NEGATIVE) 06/22/18 23:15 Urine Nitrate NEGATIVE (NEGATIVE) 06/22/18 23:15 Urine Bilirubin NEGATIVE (NEGATIVE) 06/22/18 23:15 Urine Urobilinogen 0.2 E.U./dL (0.2 - 1.0) 06/22/18 23:15 Ur Leukocyte Esterase NEGATIVE (NEGATIVE) 06/22/18 23:15 Urine RBC NONE SEEN /hpf (0-5) 06/22/18 23:15 Urine WBC NONE SEEN /hpf (0-5) 06/22/18 23:15 Ur Epithelial Cells RARE /lpf (FEW) 06/22/18 23:15 Urine Bacteria NONE SEEN /hpf (NONE SEEN) 06/22/18 23:15 Urine Opiates Screen NEGATIVE (NEGATIVE) 06/22/18 23:15 Urine Methadone Screen NEGATIVE (NEGATIVE) 06/22/18 23:15 Ur Barbiturates Screen NEGATIVE (NEGATIVE) 06/22/18 23:15 Ur Tricyclics Screen NEGATIVE (NEGATIVE) 06/22/18 23:15 Ur Phencyclidine Scrn NEGATIVE (NEGATIVE) 06/22/18 23:15 Amphetamines Screen NEGATIVE (NEGATIVE) 06/22/18 23:15 U Methamphetamines Scrn NEGATIVE (NEGATIVE) 06/22/18 23:15 U Benzodiazepines Scrn NEGATIVE (NEGATIVE) 06/22/18 23:15 U Cocaine Metab Screen NEGATIVE (NEGATIVE) 06/22/18 23:15 U Cannabinoids Screen NEGATIVE (NEGATIVE) 06/22/18 23:15 - Physical Exam Vitals and I&O: Vital Signs Temp 97.1 F 06/27/18 06:28 Pulse 92 06/27/18 08:39 Resp 20 06/27/18 06:28 BP 127/75 06/27/18 08:39 Pulse Ox 97 06/27/18 06:28 Intake & Output 06/26/18 06/27/18 06/27/18 18:59 06:59 18:59 Intake Total 900 120 Balance 900 120 Intake: Oral 900 120 Other: # Voids 3 1 # Bowel Movements 1 0 Active Medications: Current Medications Acetaminophen (Tylenol) 650 mg PO Q4HR PRN PRN Reason: Pain or Fever >101 Stop: 08/22/18 02:04 Acetaminophen/Hydrocodone Bitart ([place] 10 Mg/325 Mg) 1 tab PO Q6H PRN PRN Reason: Pain (Severe) Stop: 08/22/18 02:04 Last Admin: 06/26/18 20:15 Dose: 1 tab Carvedilol (Coreg) 3.125 mg PO BIDWM [facility] Stop: 08/22/18 07:59 Last Admin: 06/27/18 08:39 Dose: 3.125 mg Cyclobenzaprine HCl (Flexeril) 10 mg PO DAILY [facility] Stop: 08/22/18 08:59 Last Admin: 06/27/18 08:39 Dose: 10 mg Dextrose (D50w) 50 ml IVP PRN PRN PRN Reason: Blood Glucose less than 70 Stop: 08/23/18 10:44 Dextrose (Glutose 40%) 18.75 gm PO UD PRN PRN Reason: Blood Glucose less than 70 Stop: 08/23/18 10:44 Divalproex Sodium (Depakote Dr) 500 mg PO BID [facility]; Protocol Stop: 08/22/18 08:59 Last Admin: 06/27/18 08:35 Dose: 500 mg Docusate Sodium (Colace) 100 mg PO DAILY [facility] Stop: 08/22/18 08:59 Last Admin: 06/27/18 08:36 Dose: 100 mg Folic Acid (Folate) 1 mg PO DAILY [facility] Stop: 08/22/18 08:59 Last Admin: 06/27/18 08:38 Dose: 1 mg Furosemide (Lasix) 20 mg PO BID [facility] Stop: 08/22/18 08:59 Last Admin: 06/27/18 08:36 Dose: 20 mg Glucagon (Glucagen) 1 mg IM PRN PRN PRN Reason: Blood Glucose less than 70 Stop: 08/23/18 10:44 Ibuprofen (Motrin) 800 mg PO Q8HR PRN PRN Reason: Pain (Moderate) Stop: 08/22/18 02:04 Insulin Glargine (Lantus Insulin) 15 units SUBQ HS [facility] Stop: 08/22/18 20:59 Last Admin: 06/26/18 20:17 Dose: 15 units Insulin Human Lispro (Humalog Insulin Sliding Scale) 0 units SUBQ ACHS [facility]; Protocol Stop: 08/23/18 11:29 Last Admin: 06/27/18 12:10 Dose: Not Given Lisinopril (Zestril) 10 mg PO DAILY [facility] Stop: 08/22/18 08:59 Last Admin: 06/27/18 08:36 Dose: 10 mg [place] Carbonate (Eskalith) 450 mg PO HS [facility]; Protocol Stop: 08/22/18 20:59 Last Admin: 06/26/18 20:15 Dose: 450 mg Loratadine (Claritin) 10 mg PO DAILY [facility] Stop: 08/22/18 08:59 Last Admin: 06/27/18 08:37 Dose: 10 mg Lorazepam (Ativan) 1 mg PO BID PRN; Protocol PRN Reason: Anxiety Stop: 08/22/18 02:04 Last Admin: 06/24/18 08:37 Dose: 1 mg Magnesium Hydroxide (Milk Of Magnesia) 30 ml PO HS PRN PRN Reason: Constipation Stop: 08/25/18 03:49 Last Admin: 06/26/18 04:03 Dose: 30 ml Methocarbamol (Robaxin) 500 mg PO Q8HR PRN PRN Reason: MUSCLE SPASMS Stop: 08/22/18 02:04 Pantoprazole Sodium (Protonix) 20 mg PO QDAC [facility] Stop: 08/22/18 07:29 Last Admin: 06/27/18 07:04 Dose: 20 mg Pantoprazole Sodium (Protonix) 40 mg PO DAILY [facility] Stop: 08/24/18 08:59 Last Admin: 06/27/18 08:37 Dose: 40 mg Quetiapine Fumarate (Seroquel) 50 mg PO DAILY [facility]; Protocol Stop: 08/23/18 08:59 Last Admin: 06/27/18 08:38 Dose: 50 mg Quetiapine Fumarate (Seroquel) 200 mg PO HS [facility]; Protocol Stop: 08/25/18 20:59 Risperidone (Risperdal) 6 mg PO HS [facility]; Protocol Stop: 08/22/18 20:59 Last Admin: 06/26/18 20:15 Dose: 6 mg Rivaroxaban (Xarelto) 15 mg PO BID [facility] Stop: 08/22/18 08:59 Last Admin: 06/27/18 08:39 Dose: 15 mg Rivaroxaban (Xarelto) 15 mg PO BID [facility] Stop: 08/23/18 16:59 Last Admin: 06/26/18 16:36 Dose: 15 mg Zolpidem Tartrate (Ambien) 5 mg PO HS PRN PRN Reason: Insomnia Stop: 08/22/18 01:59 Last Admin: 06/26/18 20:15 Dose: 5 mg General: demented HEENT: NC/AT, PERRLA Neck: Supple Lungs: CTAB Cardiovascular: RRR, Normal S1, Normal S2, without murmur Abdomen: soft, non-tender, non-distended Extremities: excoriation Neurological: no change Internal Medicine Assmt/Plan - Assessment Assessment: - Assessment Assessment: ASSESSMENT: Agitation, hypertension, congestive heart failure, history of deep venous thrombosis disease, gastroesophageal reflux disease. - Plan Plan: PLAN: We will continue the patient's medications, Xarelto, lisinopril. We will monitor the patient's glucose level as well. We will continue to monitor this patient. - Plan Plan: seen nikhil canchola
--- NOTE | 2018-06-27 20:19 | Progress Notes ---
DATE: 06/27/2018 SUBJECTIVE: Staff was spoken to. The patient is interviewed. Mood is noted to be irritable. Affect is constricted. The patient is insisting that she should be discharged to the facility, but however, the facility is letting the staff and all that they do not want the patient back and they want the patient to be placed somewhere else. Coping skills at this time are noted to be poor. The patient has been having mood swings. The patient has no insight into her illness. ASSESSMENT: The patient is still psychotic and impulsive. PLAN: To continue the patient with the supportive therapy and followup. JOB# [id number]
[2018-06-27] MEDS: Insulin Glargine 100 units/ml 10ml Vial SUBQ SCH (20:46)
--- NOTE | 2018-06-27 21:45 | Progress Notes ---
DATE: 06/27/2018 PSYCHOLOGY PROGRESS NOTE SUBJECTIVE: The patient is seen and is interviewed. Case is discussed with staff. The patient presents as irritable as well as easily agitated. The patient is verbalizing paranoid ideation and is suspicious of providers as well as staff members with respect to her care and treatment. The patient is insisting at this time that she be returned to her facility and is demanding to see a rn social services or case hardener. OBJECTIVE: Mood is irritable and angry. Affect is constrictive. Thought process is confused. Mood is fluctuating. The patient denied any suicidal or homicidal ideation, plan or intention. However, paranoid ideation persists. The patient is having difficulty responding to the care providers and is somewhat resistant. The patient continues to use inappropriate language. ASSESSMENT AND PLAN: The patient remains to be psychotic and impulsive. We provided reality orientation, differentiation, and integration. We provided de-escalation and limit setting. We provided remotivation for the patient to become compliant and stay compliant with all aspects of her care and treatment. We provided an opportunity to establish rapport and trust that the patient will be able to follow through with staff direction and commit to her treatment plan. We provided coping strategies for chronic severe mental illness as well. We encouraged the patient to verbalize her concerns versus acting out. We will follow up in 2-3 days to continue the present treatment. [facility]# [id number] REBECCA
[2018-06-28] MEDS: Hydrocodone/APAP 10 mg/325 mg Tab PO PRN (05:46)
[2018-06-28] MEDS: INSULIN LISPRO SLIDING SCALE 100 UNITS/ML UNIT SUBQ SCH ×4 (06:30→20:50)
[2018-06-28] MEDS: Pantoprazole 40 mg/Packet PO SCH (06:49)
--- NOTE | 2018-06-28 08:24 | Diagnostic Imaging Report ---
Left thumb (3 views) HISTORY: Pain No acute abnormalities. No fractures. Small spur formation noted about the base of the first distal phalanx. Mild degenerative changes with small spur formation noted about the first carpal metacarpal joint area. IMPRESSION: 1. No acute abnormalities 2. Mild degenerative changes
[2018-06-28] MEDS: Pantoprazole 40 mg EC Tab PO SCH (08:48)
--- NOTE | 2018-06-28 13:17 | Internal Medicine Prog Note ---
Internal Medicine Subjective - Subjective Patient seen and examined:: with staff, chart reviewed Patient is:: awake, verbal, interactive, confused Per staff patient has:: no adverse event, no episodes of fall, tolerating meds Internal Medicine Objective - Results Result Diagrams: 06/22/18 23:35 06/22/18 23:30 Recent Labs: Laboratory Last Values WBC 6.6 Th/cmm (4.8-10.8) 06/22/18 23:35 RBC 3.75 Mil/cmm (3.80-5.10) L 06/22/18 23:35 Hgb 12.1 gm/dL (12-16) 06/22/18 23:35 Hct 35.9 % (41.0-60) L 06/22/18:35 MCV 95.6 fl (81-100) 06/22/18 23:35 MCH 32.3 pg (27.0-31.0) H 06/22/18 23:35 MCHC Differential 33.8 pg (28.0-36.0) 06/22/18 23:35 RDW 12.7 % (11.5-20.0) 06/22/18 23:35 Plt Count 217 Th/cmm (150-400) 06/22/18 23:35 MPV 8.8 fl 06/22/18 23:35 Add Manual Diff YES 06/22/18 23:35 Neutrophils (Manual) 48 % (40-80) 06/22/18:35 Lymphocytes 40 % (20-50) 06/22/18 23:35 Monocytes 12 % (2-10) H 06/22/18 23:35 PT 10.6 SECONDS (9.5-11.5) 06/22/18 23:35 INR 1.02 (0.5-1.4) 06/22/18 23:35 PTT (Actin FS) 27.7 SECONDS (26.0-38.0) 06/22/18 23:35 Sodium 139 mEq/L (136-145) 06/22/18 23:30 Potassium 3.6 mEq/L (3.5-5.1) 06/22/18 23:30 Chloride 102 mEq/L (98-107) 06/22/18 23:30 Carbon Dioxide 27.5 mEq/L (21.0-31.0) 06/22/18 23:30 Anion Gap 13.1 (7.0-16.0) 06/22/18 23:30 BUN 13 mg/dL (7-25) 06/22/18 23:30 Creatinine 0.7 mg/dL (0.6-1.2) 06/22/18 23:30 Est GFR ( Amer) > 60.0 ml/min (>90) 06/22/18 23:30 Est GFR (Non-Af Amer) > 60.0 ml/min 06/22/18 23:30 BUN/Creatinine Ratio 18.6 06/22/18 23:30 Glucose 137 mg/dL (70-105) H 06/22/18 23:30 POC Glucose 154 MG/DL (70 - 105) H 06/28/18 11:25 Calcium 9.1 mg/dL (8.6-10.3) 06/22/18 23:30 Total Bilirubin 0.7 mg/dL (0.3-1.0) 06/22/18 23:30 AST 35 U/L (13-39) 06/22/18 23:30 ALT 34 U/L (7-52) 06/22/18 23:30 Alkaline Phosphatase 65 U/L (34-104) 06/22/18 23:30 Troponin I < 0.01 ng/mL (0.01-0.05) L 06/22/18 23:35 Total Protein 7.4 gm/dL (6.0-8.3) 06/22/18 23:30 Albumin 4.0 gm/dL (3.7-5.3) 06/22/18 23:30 Globulin 3.4 gm/dL 06/22/18 23:30 Albumin/Globulin Ratio 1.2 (1.0-1.8) 06/22/18 23:30 Triglycerides 73 mg/dL (<150) 06/23/18 00:00 Cholesterol 132 mg/dL (<200) 06/23/18 00:00 LDL Cholesterol Direct 81 mg/dL (75-193) 06/23/18 00:00 HDL Cholesterol 49 mg/dL (23-92) 06/23/18 00:00 Urine Source CLEAN C 06/22/18 23:15 Urine Color STRAW 06/22/18 23:15 Urine Clarity CLEAR (CLEAR) 06/22/18 23:15 Urine pH 5.5 (4.6 - 8.0) 06/22/18 23:15 Ur Specific [place] 1.015 (1.005-1.030) 06/22/18 23:15 Urine Protein NEGATIVE mg/dL (NEGATIVE) 06/22/18 23:15 Urine Glucose (UA) NEGATIVE mg/dL (NEGATIVE) 06/22/18 23:15 Urine Ketones TRACE mg/dL (NEGATIVE) 06/22/18 23:15 Urine Blood NEGATIVE (NEGATIVE) 06/22/18 23:15 Urine Nitrate NEGATIVE (NEGATIVE) 06/22/18 23:15 Urine Bilirubin NEGATIVE (NEGATIVE) 06/22/18 23:15 Urine Urobilinogen 0.2 E.U./dL (0.2 - 1.0) 06/22/18 23:15 Ur Leukocyte Esterase NEGATIVE (NEGATIVE) 06/22/18 23:15 Urine RBC NONE SEEN /hpf (0-5) 06/22/18 23:15 Urine WBC NONE SEEN /hpf (0-5) 06/22/18 23:15 Ur Epithelial Cells RARE /lpf (FEW) 06/22/18 23:15 Urine Bacteria NONE SEEN /hpf (NONE SEEN) 06/22/18 23:15 Urine Opiates Screen NEGATIVE (NEGATIVE) 06/22/18 23:15 Urine Methadone Screen NEGATIVE (NEGATIVE) 06/22/18 23:15 Ur Barbiturates Screen NEGATIVE (NEGATIVE) 06/22/18 23:15 Ur Tricyclics Screen NEGATIVE (NEGATIVE) 06/22/18 23:15 Ur Phencyclidine Scrn NEGATIVE (NEGATIVE) 06/22/18 23:15 Amphetamines Screen NEGATIVE (NEGATIVE) 06/22/18 23:15 U Methamphetamines Scrn NEGATIVE (NEGATIVE) 06/22/18 23:15 U Benzodiazepines Scrn NEGATIVE (NEGATIVE) 06/22/18 23:15 U Cocaine Metab Screen NEGATIVE (NEGATIVE) 06/22/18 23:15 U Cannabinoids Screen NEGATIVE (NEGATIVE) 06/22/18 23:15 - Physical Exam Vitals and I&O: Vital Signs Temp 98.5 F 06/27/18 20:54 Pulse 78 06/28/18 08:48 Resp 19 06/27/18 20:54 BP 136/82 06/28/18 08:48 Pulse Ox 98 06/27/18 20:54 Intake & Output 06/27/18 06/28/18 06/28/18 18:59 06:59 18:59 Intake Total 900 140 Balance 900 140 Intake: Oral 900 140 Other: # Voids 3 2 # Bowel Movements 1 Active Medications: Current Medications Acetaminophen (Tylenol) 650 mg PO Q4HR PRN PRN Reason: Pain or Fever >101 Stop: 08/22/18 02:04 Acetaminophen/Hydrocodone Bitart ([place] 10 Mg/325 Mg) 1 tab PO Q6H PRN PRN Reason: Pain (Severe) Stop: 08/22/18 02:04 Last Admin: 06/28/18 05:46 Dose: 1 tab Carvedilol (Coreg) 3.125 mg PO BIDWM [facility] Stop: 08/22/18 07:59 Last Admin: 06/28/18 08:47 Dose: 3.125 mg Cyclobenzaprine HCl (Flexeril) 10 mg PO DAILY [facility] Stop: 08/22/18 08:59 Last Admin: 06/28/18 08:48 Dose: 10 mg Dextrose (D50w) 50 ml IVP PRN PRN PRN Reason: Blood Glucose less than 70 Stop: 08/23/18 10:44 Dextrose (Glutose 40%) 18.75 gm PO UD PRN PRN Reason: Blood Glucose less than 70 Stop: 08/23/18 10:44 Divalproex Sodium (Depakote Dr) 500 mg PO BID [facility]; Protocol Stop: 08/22/18 08:59 Last Admin: 06/28/18 08:48 Dose: 500 mg Docusate Sodium (Colace) 100 mg PO DAILY [facility] Stop: 08/22/18 08:59 Last Admin: 06/28/18 08:48 Dose: 100 mg Folic Acid (Folate) 1 mg PO DAILY [facility] Stop: 08/22/18 08:59 Last Admin: 06/28/18 08:48 Dose: 1 mg Furosemide (Lasix) 20 mg PO BID [facility] Stop: 08/22/18 08:59 Last Admin: 06/28/18 08:48 Dose: 20 mg Glucagon (Glucagen) 1 mg IM PRN PRN PRN Reason: Blood Glucose less than 70 Stop: 08/23/18 10:44 Ibuprofen (Motrin) 600 mg PO Q8H PRN PRN Reason: PAIN ON LEFT THUMB Stop: 08/26/18 16:04 Insulin Glargine (Lantus Insulin) 15 units SUBQ HS [facility] Stop: 08/22/18 20:59 Last Admin: 06/27/18 20:46 Dose: 15 units Insulin Human Lispro (Humalog Insulin Sliding Scale) 0 units SUBQ ACHS [facility]; Protocol Stop: 08/23/18 11:29 Last Admin: 06/28/18 11:46 Dose: Not Given Lisinopril (Zestril) 10 mg PO DAILY [facility] Stop: 08/22/18 08:59 Last Admin: 06/28/18 08:48 Dose: 10 mg [place] Carbonate (Eskalith) 450 mg PO HS [facility]; Protocol Stop: 08/22/18 20:59 Last Admin: 06/27/18 20:44 Dose: 450 mg Loratadine (Claritin) 10 mg PO DAILY [facility] Stop: 08/22/18 08:59 Last Admin: 06/28/18 08:48 Dose: 10 mg Lorazepam (Ativan) 1 mg PO BID PRN; Protocol PRN Reason: Anxiety Stop: 08/22/18 02:04 Last Admin: 06/24/18 08:37 Dose: 1 mg [place]esium Hydroxide (Milk Of Magnesia) 30 ml PO HS PRN PRN Reason: Constipation Stop: 08/25/18 03:49 Last Admin: 06/26/18 04:03 Dose: 30 ml Methocarbamol (Robaxin) 500 mg PO Q8HR PRN PRN Reason: MUSCLE SPASMS Stop: 08/22/18 02:04 Pantoprazole Sodium (Protonix) 20 mg PO QDAC [facility] Stop: 08/22/18 07:29 Last Admin: 06/28/18 06:49 Dose: 20 mg Pantoprazole Sodium (Protonix) 40 mg PO DAILY [facility] Stop: 08/24/18 08:59 Last Admin: 06/28/18 08:48 Dose: 40 mg Quetiapine Fumarate (Seroquel) 50 mg PO DAILY [facility]; Protocol Stop: 08/23/18 08:59 Last Admin: 06/28/18 08:48 Dose: 50 mg Quetiapine Fumarate (Seroquel) 200 mg PO HS [facility]; Protocol Stop: 08/25/18 20:59 Last Admin: 06/27/18 20:44 Dose: 200 mg Risperidone (Risperdal) 6 mg PO HS [facility]; Protocol Stop: 08/22/18 20:59 Last Admin: 06/27/18 20:44 Dose: 6 mg Rivaroxaban (Xarelto) 15 mg PO BID [facility] Stop: 08/22/18 08:59 Last Admin: 06/28/18 08:48 Dose: 15 mg Rivaroxaban (Xarelto) 15 mg PO BID [facility] Stop: 08/23/18 16:59 Last Admin: 06/28/18 08:48 Dose: 15 mg Zolpidem Tartrate (Ambien) 5 mg PO HS PRN PRN Reason: Insomnia Stop: 08/22/18 01:59 Last Admin: 06/26/18 20:15 Dose: 5 mg General: demented HEENT: NC/AT, PERRLA Neck: Supple Lungs: CTAB Cardiovascular: RRR, Normal S1, Normal S2, without murmur Abdomen: soft, non-tender, non-distended Extremities: excoriation Neurological: no change Internal Medicine Assmt/Plan - Assessment Assessment: - Assessment Assessment: ASSESSMENT: Agitation, hypertension, congestive heart failure, history of deep venous thrombosis disease, gastroesophageal reflux disease. - Plan Plan: PLAN: We will continue the patient's medications, Xarelto, lisinopril. We will monitor the patient's glucose level as well. We will continue to monitor this patient. - Plan Plan: seen w rn Nutritional Asmnt/Malnutr-PDOC - Dietary Evaluation Malnutrition Findings (Please click <Entered> for more info): Nutritional Asmnt/Malnutrition Start: 06/23/18 10: 25 Text: Status: Complete Freq: Protocol: Document 06/27/18 15:06 LCHENG (Rec: 06/27/18 15:11 [email or web address]) Nutritional Asmnt/Malnutrition Patient General Information Diagnosis psychosis NOS Pertinent Medical Hx/Surgical Hx CHF, psychosis, DM, HTN, GERD, DVT Subjective Information Pt seen eating lunch in dining room, confused. Per EMR, PO intake 100%. Current Diet Order/ Nutrition Support [facility] soft Pertinent Medications colace, folate, lasix, lantus, humalog, protonix, seroquel Pertinent Labs 06/26 POC 100-212 06/22 glucose 137 Nutritional Hx/Data Height 1.65 m Height (Calculated Centimeters) 165.1 Current Weight (lbs) 94.347 kg Weight (Calculated Kilograms) 94.3 Weight (Calculated Grams) 47019.2 [place] Body Weight 125 Body Mass Index (BMI) 34.6 Weight Status Obese GI Symptoms GI Symptoms None Last BM 06/26 Difficult in: None Skin Integrity/Comment: dryness Current %PO Good (75-100%) Estimated Nutritional Goals BEE in Kcals: Adj wt of IBW Calories/Kcals/Kg 25-30 Kcals Calculated 6340-8978 Protein: Adj wt of IBW Protein g/k Protein Calculated 66 Fluid: ml 1650-1980ml (1ml/kcal) Nutritional Problem 1. Problem Problem altered nutrition related labs Etiology hyperglycemia Signs/Symptoms: glucose 137 POC 100-212 Malnutrition Alert Is there a minimum of two criteria No selected? Query Text:Check all the applicable criteria. A minimum of two criteria are recommended for diagnosis of either severe or non-severe malnutrition. Malnutrition Related to Morbid Obesity Malnutrition related to morbid obesity No Intervention/Recommendation Comments 1. Continue with [facility] soft diet as ordered. 2. Monitor PO intake, wt, labs and skin integrity 3. F/U as low risk in 7 days Expected Outcomes/Goals Expected Outcomes/Goals 1. PO intake to meet at least 75% of nutritional needs. 2. Wt stability, skin to remain intact, labs to approach WNL.
[2018-06-28] MEDS: Insulin Glargine 100 units/ml 10ml Vial SUBQ SCH (20:49)
--- NOTE | 2018-06-29 02:32 | Progress Notes ---
DATE: 06/28/2018 PSYCHIATRIC PROGRESS NOTE SUBJECTIVE: Staff was spoken to. The patient is interviewed. Mood is noted to be dysphoric. Affect is constricted. The patient's insight and judgment at this time are noted to be impaired. Impulse control is noted to be poor. Coping skills are also noted to be very poor. The patient has been not able to contract for safety. The placement where the patient has been there before is not willing to take the patient back and case aide has been trying to work with the facility at this time. The conservator wants the patient back to at the same facility. ASSESSMENT: The patient is still paranoid. PLAN: To continue the patient with the current medications and continue the valproic acid and increase the dose on the Seroquel 200 mg in the morning and then 200 mg at bedtime and continue the patient with lithium carbonate 450 mg at bedtime and follow the patient with supportive therapy. The patient today seems to be very, very isolative and withdrawn and the patient has not been able to contact for safety. The patient is noted to be very dysphoric and drowsy at this time. Plan to closely monitor the patient and change the Risperdal to low dose 2 mg and continue with the Zyprexa, Seroquel and follow the patient up. JOB# [id number]
[2018-06-29] MEDS: Hydrocodone/APAP 10 mg/325 mg Tab PO PRN (02:35)
--- NOTE | 2018-06-29 05:03 | Progress Notes ---
DATE: 06/28/2018 PSYCHIATRIC PROGRESS NOTE SUMMARY: Staff was spoken to. The patient is interviewed. Mood is noted to be irritable. Affect is constricted. The patient's insight and judgment at this time are noted to be still impaired. Impulse control is noted to be limited. Coping skills are also noted to be limited. The patient has been having difficult time to cope with the stress. The patient is currently able to tolerate the medications. No side effects to the medications are noted. Initially, it was reported that the facility does not want to take the patient back, but they have changed their mind, they are going to be accepting the patient back. The patient is currently on 800 mg of Seroquel at nighttime and the patient is also receiving olanzapine 10 mg at bedtime. Possibly, the olanzapine is going to be discontinued and the patient is going to be continued on the Seroquel alone. The patient is going to be closely monitored for any side effects stemming out of the medications. [facility]# [id number]
[2018-06-29] MEDS: INSULIN LISPRO SLIDING SCALE 100 UNITS/ML UNIT SUBQ SCH ×4 (06:49→20:28)
[2018-06-29] MEDS: Pantoprazole 40 mg/Packet PO SCH (06:50)
[2018-06-29] MEDS: Pantoprazole 40 mg EC Tab PO SCH (08:42)
--- NOTE | 2018-06-29 12:29 | Internal Medicine Prog Note ---
Internal Medicine Subjective - Subjective Patient seen and examined:: with staff, chart reviewed Patient is:: awake, verbal, interactive, confused Per staff patient has:: no adverse event, no episodes of fall, tolerating meds Internal Medicine Objective - Results Result Diagrams: 06/22/18 23:35 06/22/18 23:30 Recent Labs: Laboratory Last Values WBC 6.6 Th/cmm (4.8-10.8) 06/22/18 23:35 RBC 3.75 Mil/cmm (3.80-5.10) L 06/22/18 23:35 Hgb 12.1 gm/dL (12-16) 06/22/18 23:35 Hct 35.9 % (41.0-60) L 06/22/18:35 MCV 95.6 fl (81-100) 06/22/18 23:35 MCH 32.3 pg (27.0-31.0) H 06/22/18 23:35 MCHC Differential 33.8 pg (28.0-36.0) 06/22/18 23:35 RDW 12.7 % (11.5-20.0) 06/22/18 23:35 Plt Count 217 Th/cmm (150-400) 06/22/18 23:35 MPV 8.8 fl 06/22/18 23:35 Add Manual Diff YES 06/22/18 23:35 Neutrophils (Manual) 48 % (40-80) 06/22/18:35 Lymphocytes 40 % (20-50) 06/22/18 23:35 Monocytes 12 % (2-10) H 06/22/18 23:35 PT 10.6 SECONDS (9.5-11.5) 06/22/18 23:35 INR 1.02 (0.5-1.4) 06/22/18 23:35 PTT (Actin FS) 27.7 SECONDS (26.0-38.0) 06/22/18 23:35 Sodium 139 mEq/L (136-145) 06/22/18 23:30 Potassium 3.6 mEq/L (3.5-5.1) 06/22/18 23:30 Chloride 102 mEq/L (98-107) 06/22/18 23:30 Carbon Dioxide 27.5 mEq/L (21.0-31.0) 06/22/18 23:30 Anion Gap 13.1 (7.0-16.0) 06/22/18 23:30 BUN 13 mg/dL (7-25) 06/22/18 23:30 Creatinine 0.7 mg/dL (0.6-1.2) 06/22/18 23:30 Est GFR ( Amer) > 60.0 ml/min (>90) 06/22/18 23:30 Est GFR (Non-Af Amer) > 60.0 ml/min 06/22/18 23:30 BUN/Creatinine Ratio 18.6 06/22/18 23:30 Glucose 137 mg/dL (70-105) H 06/22/18 23:30 POC Glucose 158 MG/DL (70 - 105) H 06/29/18 12:09 Calcium 9.1 mg/dL (8.6-10.3) 06/22/18 23:30 Total Bilirubin 0.7 mg/dL (0.3-1.0) 06/22/18 23:30 AST 35 U/L (13-39) 06/22/18 23:30 ALT 34 U/L (7-52) 06/22/18 23:30 Alkaline Phosphatase 65 U/L (34-104) 06/22/18 23:30 Troponin I < 0.01 ng/mL (0.01-0.05) L 06/22/18 23:35 Total Protein 7.4 gm/dL (6.0-8.3) 06/22/18 23:30 Albumin 4.0 gm/dL (3.7-5.3) 06/22/18 23:30 Globulin 3.4 gm/dL 06/22/18 23:30 Albumin/Globulin Ratio 1.2 (1.0-1.8) 06/22/18 23:30 Triglycerides 73 mg/dL (<150) 06/23/18 00:00 Cholesterol 132 mg/dL (<200) 06/23/18 00:00 LDL Cholesterol Direct 81 mg/dL (75-193) 06/23/18 00:00 HDL Cholesterol 49 mg/dL (23-92) 06/23/18 00:00 Urine Source CLEAN C 06/22/18 23:15 Urine Color STRAW 06/22/18 23:15 Urine Clarity CLEAR (CLEAR) 06/22/18 23:15 Urine pH 5.5 (4.6 - 8.0) 06/22/18 23:15 Ur Specific [place] 1.015 (1.005-1.030) 06/22/18 23:15 Urine Protein NEGATIVE mg/dL (NEGATIVE) 06/22/18 23:15 Urine Glucose (UA) NEGATIVE mg/dL (NEGATIVE) 06/22/18 23:15 Urine Ketones TRACE mg/dL (NEGATIVE) 06/22/18 23:15 Urine Blood NEGATIVE (NEGATIVE) 06/22/18 23:15 Urine Nitrate NEGATIVE (NEGATIVE) 06/22/18 23:15 Urine Bilirubin NEGATIVE (NEGATIVE) 06/22/18 23:15 Urine Urobilinogen 0.2 E.U./dL (0.2 - 1.0) 06/22/18 23:15 Ur Leukocyte Esterase NEGATIVE (NEGATIVE) 06/22/18 23:15 Urine RBC NONE SEEN /hpf (0-5) 06/22/18 23:15 Urine WBC NONE SEEN /hpf (0-5) 06/22/18 23:15 Ur Epithelial Cells RARE /lpf (FEW) 06/22/18 23:15 Urine Bacteria NONE SEEN /hpf (NONE SEEN) 06/22/18 23:15 Urine Opiates Screen NEGATIVE (NEGATIVE) 06/22/18 23:15 Urine Methadone Screen NEGATIVE (NEGATIVE) 06/22/18 23:15 Ur Barbiturates Screen NEGATIVE (NEGATIVE) 06/22/18 23:15 Ur Tricyclics Screen NEGATIVE (NEGATIVE) 06/22/18 23:15 Ur Phencyclidine Scrn NEGATIVE (NEGATIVE) 06/22/18 23:15 Amphetamines Screen NEGATIVE (NEGATIVE) 06/22/18 23:15 U Methamphetamines Scrn NEGATIVE (NEGATIVE) 06/22/18 23:15 U Benzodiazepines Scrn NEGATIVE (NEGATIVE) 06/22/18 23:15 U Cocaine Metab Screen NEGATIVE (NEGATIVE) 06/22/18 23:15 U Cannabinoids Screen NEGATIVE (NEGATIVE) 06/22/18 23:15 - Physical Exam Vitals and I&O: Vital Signs Temp 98.1 F 06/29/18 06:24 Pulse 71 06/29/18 07:56 Resp 19 06/29/18 06:24 BP 96/57 06/29/18 07:56 Pulse Ox 98 06/29/18 06:24 Intake & Output 06/28/18 06/29/18 06/29/18 18:59 06:59 18:59 Intake Total 1000 480 Balance 1000 480 Intake: Oral 1000 480 Other: # Voids 4 1 # Bowel Movements 1 Active Medications: Current Medications Acetaminophen (Tylenol) 650 mg PO Q4HR PRN PRN Reason: Pain or Fever >101 Stop: 08/22/18 02:04 Acetaminophen/Hydrocodone Bitart ([place] 10 Mg/325 Mg) 1 tab PO Q6H PRN PRN Reason: Pain (Severe) Stop: 08/22/18 02:04 Last Admin: 06/29/18 02:35 Dose: 1 tab Carvedilol (Coreg) 3.125 mg PO BIDWM [facility] Stop: 08/22/18 07:59 Last Admin: 06/29/18 07:56 Dose: Not Given Cyclobenzaprine HCl (Flexeril) 10 mg PO DAILY [facility] Stop: 08/22/18 08:59 Last Admin: 06/29/18 08:41 Dose: 10 mg Dextrose (D50w) 50 ml IVP PRN PRN PRN Reason: Blood Glucose less than 70 Stop: 08/23/18 10:44 Dextrose (Glutose 40%) 18.75 gm PO UD PRN PRN Reason: Blood Glucose less than 70 Stop: 08/23/18 10:44 Divalproex Sodium (Depakote Dr) 500 mg PO BID [facility]; Protocol Stop: 08/22/18 08:59 Last Admin: 06/29/18 08:41 Dose: Not Given Docusate Sodium (Colace) 100 mg PO DAILY [facility] Stop: 08/22/18 08:59 Last Admin: 06/29/18 08:41 Dose: 100 mg Folic Acid (Folate) 1 mg PO DAILY [facility] Stop: 08/22/18 08:59 Last Admin: 06/29/18 08:42 Dose: 1 mg Furosemide (Lasix) 20 mg PO BID [facility] Stop: 08/22/18 08:59 Last Admin: 06/29/18 08:42 Dose: Not Given Glucagon (Glucagen) 1 mg IM PRN PRN PRN Reason: Blood Glucose less than 70 Stop: 08/23/18 10:44 Ibuprofen (Motrin) 600 mg PO Q8H PRN PRN Reason: PAIN ON LEFT THUMB Stop: 08/26/18 16:04 Insulin Glargine (Lantus Insulin) 15 units SUBQ HS [facility] Stop: 08/22/18 20:59 Last Admin: 06/28/18 20:49 Dose: 15 units Insulin Human Lispro (Humalog Insulin Sliding Scale) 0 units SUBQ ACHS [facility]; Protocol Stop: 08/23/18 11:29 Last Admin: 06/29/18 12:12 Dose: Not Given Lisinopril (Zestril) 10 mg PO DAILY [facility] Stop: 08/22/18 08:59 Last Admin: 06/29/18 08:41 Dose: Not Given Elma Carbonate (Eskalith) 450 mg PO HS [facility]; Protocol Stop: 08/22/18 20:59 Last Admin: 06/28/18 20:48 Dose: 450 mg Loratadine (Claritin) 10 mg PO DAILY [facility] Stop: 08/22/18 08:59 Last Admin: 06/29/18 08:41 Dose: 10 mg Lorazepam (Ativan) 1 mg PO BID PRN; Protocol PRN Reason: Anxiety Stop: 08/22/18 02:04 Last Admin: 06/29/18 08:41 Dose: 1 mg Magnesium Hydroxide (Milk Of Magnesia) 30 ml PO HS PRN PRN Reason: Constipation Stop: 08/25/18 03:49 Last Admin: 06/26/18 04:03 Dose: 30 ml Methocarbamol (Robaxin) 500 mg PO Q8HR PRN PRN Reason: MUSCLE SPASMS Stop: 08/22/18 02:04 Pantoprazole Sodium (Protonix) 20 mg PO QDAC [facility] Stop: 08/22/18 07:29 Last Admin: 06/29/18 06:50 Dose: 20 mg Pantoprazole Sodium (Protonix) 40 mg PO DAILY [facility] Stop: 08/24/18 08:59 Last Admin: 06/29/18 08:42 Dose: 40 mg Quetiapine Fumarate (Seroquel) 200 mg PO HS [facility]; Protocol Stop: 08/25/18 20:59 Last Admin: 06/28/18 20:48 Dose: 200 mg Quetiapine Fumarate (Seroquel) 100 mg PO DAILY [facility]; Protocol Stop: 08/28/18 08:59 Risperidone (Risperdal) 2 mg PO HS [facility]; Protocol Stop: 08/27/18 20:59 Rivaroxaban (Xarelto) 15 mg PO BID [facility] Stop: 08/22/18 08:59 Last Admin: 06/29/18 08:40 Dose: 15 mg Zolpidem Tartrate (Ambien) 5 mg PO HS PRN PRN Reason: Insomnia Stop: 08/22/18 01:59 Last Admin: 06/26/18 20:15 Dose: 5 mg General: demented HEENT: NC/AT, PERRLA Neck: Supple Lungs: CTAB Cardiovascular: RRR, Normal S1, Normal S2, without murmur Abdomen: soft, non-tender, non-distended Extremities: excoriation Neurological: no change Internal Medicine Assmt/Plan - Assessment Assessment: - Assessment Assessment: ASSESSMENT: Agitation, hypertension, congestive heart failure, history of deep venous thrombosis disease, gastroesophageal reflux disease. - Plan Plan: PLAN: We will continue the patient's medications, Xarelto, lisinopril. We will monitor the patient's glucose level as well. We will continue to monitor this patient. - Plan Plan: seen w rn Nutritional Asmnt/Malnutr-PDOC - Dietary Evaluation Malnutrition Findings (Please click <Entered> for more info): Nutritional Asmnt/Malnutrition Start: 06/23/18 10: 25 Text: Status: Complete Freq: Protocol: Document 06/27/18 15:06 LCHENG (Rec: 06/27/18 15:11 [email or web address] [email or web address]) Nutritional Asmnt/Malnutrition Patient General Information Diagnosis psychosis NOS Pertinent Medical Hx/Surgical Hx CHF, psychosis, DM, HTN, GERD, DVT Subjective Information Pt seen eating lunch in dining room, confused. Per EMR, PO intake 100%. Current Diet Order/ [facility] Pertinent Medications colace, folate, lasix, lantus, humalog, protonix, seroquel Pertinent Labs 06/26 POC 100-212 06/22 glucose 137 Nutritional Hx/Data Height 1.65 m Height (Calculated Centimeters) 165.1 Current Weight (lbs) 94.347 kg Weight (Calculated Kilograms) 94.3 Weight (Calculated Grams) 57754.2 [place] Body Weight 125 Body Mass Index (BMI) 34.6 Weight Status Obese GI Symptoms GI Symptoms None Last BM 06/26 Difficult in: None Skin Integrity/Comment: dryness Current %PO Good (75-100%) Estimated Nutritional Goals BEE in Kcals: Adj wt of IBW Calories/Kcals/Kg 25-30 Kcals Calculated 8856-8241 Protein: Adj wt of IBW Protein g/k Protein Calculated 66 Fluid: ml 1650-1980ml (1ml/kcal) Nutritional Problem 1. Problem Problem altered nutrition related labs Etiology hyperglycemia Signs/Symptoms: glucose 137 POC 100-212 Malnutrition Alert Is there a minimum of two criteria No selected? Query Text:Check all the applicable criteria. A minimum of two criteria are recommended for diagnosis of either severe or non-severe malnutrition. Malnutrition Related to Morbid Obesity Malnutrition related to morbid obesity No Intervention/Recommendation Comments 1. Continue with [facility] soft diet as ordered. 2. Monitor PO intake, wt, labs and skin integrity 3. F/U as low risk in 7 days Expected Outcomes/Goals Expected Outcomes/Goals 1. PO intake to meet at least 75% of nutritional needs. 2. Wt stability, skin to remain intact, labs to approach WNL.
[2018-06-29] MEDS: Insulin Glargine 100 units/ml 10ml Vial SUBQ SCH (20:34)
--- NOTE | 2018-06-30 02:50 | Progress Notes ---
DATE: 06/29/2018 PSYCHIATRIC PROGRESS NOTE Staff was spoken to. The patient is interviewed. Mood is noted to be irritable. Affect is constricted. The patient's mood swings are coming under control. Insight and judgment at this time are noted to be still impaired. The patient has been stating that she is feeling too tired. The patient is currently on 500 mg twice a day of the Depakote. The patient is also receiving the 450 mg of the lithium carbonate at night time. No side effects to the medications are noted. The patient has been stating that she has been very tired and hence it is decided to hold the lithium carbonate at this time and plan to closely monitor the patient with the Depakote and quetiapine, which is being given at 200 mg at bedtime and then 100 mg in the morning. The patient's risperidone is going to be discontinued and the patient is going to be maintained only on Seroquel at this time. Plan is to closely monitor the patient and encouraged the patient to verbalize the concerns rather than to act out. The patient is not ready to be discharged in view of her mood swings and the placement has been worried about the patient's stability before she can come there. Plan to continue the patient with the above changes in the medications and followup. [facility]# [id number]
[2018-06-30] MEDS: Pantoprazole 40 mg/Packet PO SCH (06:48)
[2018-06-30] MEDS: INSULIN LISPRO SLIDING SCALE 100 UNITS/ML UNIT SUBQ SCH ×4 (06:48→20:53)
--- NOTE | 2018-06-30 08:37 | Internal Medicine Prog Note ---
Internal Medicine Subjective - Subjective Patient seen and examined:: with staff, chart reviewed Patient is:: awake, verbal, interactive, confused Per staff patient has:: no adverse event, no episodes of fall, tolerating meds Internal Medicine Objective - Results Result Diagrams: 06/22/18 23:35 06/22/18 23:30 Recent Labs: Laboratory Last Values WBC 6.6 Th/cmm (4.8-10.8) 06/22/18 23:35 RBC 3.75 Mil/cmm (3.80-5.10) L 06/22/18 23:35 Hgb 12.1 gm/dL (12-16) 06/22/18 23:35 Hct 35.9 % (41.0-60) L 06/22/18:35 MCV 95.6 fl (81-100) 06/22/18 23:35 MCH 32.3 pg (27.0-31.0) H 06/22/18 23:35 MCHC Differential 33.8 pg (28.0-36.0) 06/22/18 23:35 RDW 12.7 % (11.5-20.0) 06/22/18 23:35 Plt Count 217 Th/cmm (150-400) 06/22/18 23:35 MPV 8.8 fl 06/22/18 23:35 Add Manual Diff YES 06/22/18 23:35 Neutrophils (Manual) 48 % (40-80) 06/22/18:35 Lymphocytes 40 % (20-50) 06/22/18 23:35 Monocytes 12 % (2-10) H 06/22/18 23:35 PT 10.6 SECONDS (9.5-11.5) 06/22/18 23:35 INR 1.02 (0.5-1.4) 06/22/18 23:35 PTT (Actin FS) 27.7 SECONDS (26.0-38.0) 06/22/18 23:35 Sodium 139 mEq/L (136-145) 06/22/18 23:30 Potassium 3.6 mEq/L (3.5-5.1) 06/22/18 23:30 Chloride 102 mEq/L (98-107) 06/22/18 23:30 Carbon Dioxide 27.5 mEq/L (21.0-31.0) 06/22/18 23:30 Anion Gap 13.1 (7.0-16.0) 06/22/18 23:30 BUN 13 mg/dL (7-25) 06/22/18 23:30 Creatinine 0.7 mg/dL (0.6-1.2) 06/22/18 23:30 Est GFR ( Amer) > 60.0 ml/min (>90) 06/22/18 23:30 Est GFR (Non-Af Amer) > 60.0 ml/min 06/22/18 23:30 BUN/Creatinine Ratio 18.6 06/22/18 23:30 Glucose 137 mg/dL (70-105) H 06/22/18 23:30 POC Glucose 214 MG/DL (70 - 105) H 06/29/18 20:21 Calcium 9.1 mg/dL (8.6-10.3) 06/22/18 23:30 Total Bilirubin 0.7 mg/dL (0.3-1.0) 06/22/18 23:30 AST 35 U/L (13-39) 06/22/18 23:30 ALT 34 U/L (7-52) 06/22/18 23:30 Alkaline Phosphatase 65 U/L (34-104) 06/22/18 23:30 Troponin I < 0.01 ng/mL (0.01-0.05) L 06/22/18 23:35 Total Protein 7.4 gm/dL (6.0-8.3) 06/22/18 23:30 Albumin 4.0 gm/dL (3.7-5.3) 06/22/18 23:30 Globulin 3.4 gm/dL 06/22/18 23:30 Albumin/Globulin Ratio 1.2 (1.0-1.8) 06/22/18 23:30 Triglycerides 73 mg/dL (<150) 06/23/18 00:00 Cholesterol 132 mg/dL (<200) 06/23/18 00:00 LDL Cholesterol Direct 81 mg/dL (75-193) 06/23/18 00:00 HDL Cholesterol 49 mg/dL (23-92) 06/23/18 00:00 Urine Source CLEAN C 06/22/18 23:15 Urine Color STRAW 06/22/18 23:15 Urine Clarity CLEAR (CLEAR) 06/22/18 23:15 Urine pH 5.5 (4.6 - 8.0) 06/22/18 23:15 Ur Specific [place] 1.015 (1.005-1.030) 06/22/18 23:15 Urine Protein NEGATIVE mg/dL (NEGATIVE) 06/22/18 23:15 Urine Glucose (UA) NEGATIVE mg/dL (NEGATIVE) 06/22/18 23:15 Urine Ketones TRACE mg/dL (NEGATIVE) 06/22/18 23:15 Urine Blood NEGATIVE (NEGATIVE) 06/22/18 23:15 Urine Nitrate NEGATIVE (NEGATIVE) 06/22/18 23:15 Urine Bilirubin NEGATIVE (NEGATIVE) 06/22/18 23:15 Urine Urobilinogen 0.2 E.U./dL (0.2 - 1.0) 06/22/18 23:15 Ur Leukocyte Esterase NEGATIVE (NEGATIVE) 06/22/18 23:15 Urine RBC NONE SEEN /hpf (0-5) 06/22/18 23:15 Urine WBC NONE SEEN /hpf (0-5) 06/22/18 23:15 Ur Epithelial Cells RARE /lpf (FEW) 06/22/18 23:15 Urine Bacteria NONE SEEN /hpf (NONE SEEN) 06/22/18 23:15 Urine Opiates Screen NEGATIVE (NEGATIVE) 06/22/18 23:15 Urine Methadone Screen NEGATIVE (NEGATIVE) 06/22/18 23:15 Ur Barbiturates Screen NEGATIVE (NEGATIVE) 06/22/18 23:15 Ur Tricyclics Screen NEGATIVE (NEGATIVE) 06/22/18 23:15 Ur Phencyclidine Scrn NEGATIVE (NEGATIVE) 06/22/18 23:15 Amphetamines Screen NEGATIVE (NEGATIVE) 06/22/18 23:15 U Methamphetamines Scrn NEGATIVE (NEGATIVE) 06/22/18 23:15 U Benzodiazepines Scrn NEGATIVE (NEGATIVE) 06/22/18 23:15 U Cocaine Metab Screen NEGATIVE (NEGATIVE) 06/22/18 23:15 U Cannabinoids Screen NEGATIVE (NEGATIVE) 06/22/18 23:15 - Physical Exam Vitals and I&O: Vital Signs Temp 96.9 F 06/30/18 06:23 Pulse 83 06/30/18 06:23 Resp 19 06/30/18 06:23 BP 130/76 06/30/18 06:23 Pulse Ox 98 06/30/18 06:23 Intake & Output 06/29/18 06/30/18 06/30/18 18:59 06:59 18:59 Intake Total 1100 240 Balance 1100 240 Intake: Oral 1100 240 Other: # Voids 4 3 # Bowel Movements 1 0 Active Medications: Current Medications Acetaminophen (Tylenol) 650 mg PO Q4HR PRN PRN Reason: Pain or Fever >101 Stop: 08/22/18 02:04 Acetaminophen/Hydrocodone Bitart ([place] 10 Mg/325 Mg) 1 tab PO Q6H PRN PRN Reason: Pain (Severe) Stop: 08/22/18 02:04 Last Admin: 06/29/18 02:35 Dose: 1 tab Carvedilol (Coreg) 3.125 mg PO BIDWM [facility] Stop: 08/22/18 07:59 Last Admin: 06/29/18 18:10 Dose: Not Given Cyclobenzaprine HCl (Flexeril) 10 mg PO DAILY [facility] Stop: 08/22/18 08:59 Last Admin: 06/29/18 08:41 Dose: 10 mg Dextrose (D50w) 50 ml IVP PRN PRN PRN Reason: Blood Glucose less than 70 Stop: 08/23/18 10:44 Dextrose (Glutose 40%) 18.75 gm PO UD PRN PRN Reason: Blood Glucose less than 70 Stop: 08/23/18 10:44 Divalproex Sodium (Depakote Dr) 500 mg PO BID [facility]; Protocol Stop: 08/22/18 08:59 Last Admin: 06/29/18 18:11 Dose: 500 mg Docusate Sodium (Colace) 100 mg PO DAILY [facility] Stop: 08/22/18 08:59 Last Admin: 06/29/18 08:41 Dose: 100 mg Folic Acid (Folate) 1 mg PO DAILY [facility] Stop: 08/22/18 08:59 Last Admin: 06/29/18 08:42 Dose: 1 mg Furosemide (Lasix) 20 mg PO BID [facility] Stop: 08/22/18 08:59 Last Admin: 06/29/18 18:11 Dose: Not Given Glucagon (Glucagen) 1 mg IM PRN PRN PRN Reason: Blood Glucose less than 70 Stop: 08/23/18 10:44 Ibuprofen (Motrin) 600 mg PO Q8H PRN PRN Reason: PAIN ON LEFT THUMB Stop: 08/26/18 16:04 Insulin Glargine (Lantus Insulin) 15 units SUBQ HS [facility] Stop: 08/22/18 20:59 Last Admin: 06/29/18 20:34 Dose: 15 units Insulin Human Lispro (Humalog Insulin Sliding Scale) 0 units SUBQ ACHS [facility]; Protocol Stop: 08/23/18 11:29 Last Admin: 06/30/18 06:48 Dose: Not Given Lisinopril (Zestril) 10 mg PO DAILY [facility] Stop: 08/22/18 08:59 Last Admin: 06/29/18 08:41 Dose: Not Given Loratadine (Claritin) 10 mg PO DAILY [facility] Stop: 08/22/18 08:59 Last Admin: 06/29/18 08:41 Dose: 10 mg Lorazepam (Ativan) 1 mg PO BID PRN; Protocol PRN Reason: Anxiety Stop: 08/22/18 02:04 Last Admin: 06/29/18 18:09 Dose: 1 mg Magnesium Hydroxide (Milk Of Magnesia) 30 ml PO HS PRN PRN Reason: Constipation Stop: 08/25/18 03:49 Last Admin: 06/26/18 04:03 Dose: 30 ml Methocarbamol (Robaxin) 500 mg PO Q8HR PRN PRN Reason: MUSCLE SPASMS Stop: 08/22/18 02:04 Pantoprazole Sodium (Protonix) 20 mg PO QDAC [facility] Stop: 08/22/18 07:29 Last Admin: 06/30/18 06:48 Dose: 20 mg Pantoprazole Sodium (Protonix) 40 mg PO DAILY [facility] Stop: 08/24/18 08:59 Last Admin: 06/29/18 08:42 Dose: 40 mg Quetiapine Fumarate (Seroquel) 200 mg PO HS [facility]; Protocol Stop: 08/25/18 20:59 Last Admin: 06/29/18 20:34 Dose: 200 mg Quetiapine Fumarate (Seroquel) 100 mg PO DAILY [facility]; Protocol Stop: 08/28/18 08:59 Rivaroxaban (Xarelto) 15 mg PO BID [facility] Stop: 08/22/18 08:59 Last Admin: 06/29/18 18:10 Dose: 15 mg Zolpidem Tartrate (Ambien) 5 mg PO HS PRN PRN Reason: Insomnia Stop: 08/22/18 01:59 Last Admin: 06/26/18 20:15 Dose: 5 mg General: demented HEENT: NC/AT, PERRLA Neck: Supple Lungs: CTAB Cardiovascular: RRR, Normal S1, Normal S2, without murmur Abdomen: soft, non-tender, non-distended Extremities: excoriation Neurological: no change Internal Medicine Assmt/Plan - Assessment Assessment: - Assessment Assessment: ASSESSMENT: Agitation, hypertension, congestive heart failure, history of deep venous thrombosis disease, gastroesophageal reflux disease. - Plan Plan: PLAN: We will continue the patient's medications, Xarelto, lisinopril. We will monitor the patient's glucose level as well. We will continue to monitor this patient. - Plan Plan: seen w rn Nutritional Asmnt/Malnutr-PDOC - Dietary Evaluation Malnutrition Findings (Please click <Entered> for more info): Nutritional Asmnt/Malnutrition Start: 06/23/18 10: 25 Text: Status: Complete Freq: Protocol: Document 06/27/18 15:06 AUGUST (Rec: 06/27/18 15:11 AUGUST [email or web address]) Nutritional Asmnt/Malnutrition Patient General Information Diagnosis psychosis NOS Pertinent Medical Hx/Surgical Hx CHF, psychosis, DM, HTN, GERD, DVT Subjective Information Pt seen eating lunch in dining room, confused. Per EMR, PO intake 100%. Current Diet Order/ [facility] Pertinent Medications colace, folate, lasix, lantus, humalog, protonix, seroquel Pertinent Labs 06/26 POC 100-212 06/22 glucose 137 Nutritional Hx/Data Height 1.65 m Height (Calculated Centimeters) 165.1 Current Weight (lbs) 94.347 kg Weight (Calculated Kilograms) 94.3 Weight (Calculated Grams) 63632.2 [place] Body Weight 125 Body Mass Index (BMI) 34.6 Weight Status Obese GI Symptoms GI Symptoms None Last BM 06/26 Difficult in: None Skin Integrity/Comment: dryness Current %PO Good (75-100%) Estimated Nutritional Goals BEE in Kcals: Adj wt of IBW Calories/Kcals/Kg 25-30 Kcals Calculated 6462-0014 Protein: Adj wt of IBW Protein g/k Protein Calculated 66 Fluid: ml 1650-1980ml (1ml/kcal) Nutritional Problem 1. Problem Problem altered nutrition related labs Etiology hyperglycemia Signs/Symptoms: glucose 137 POC 100-212 Malnutrition Alert Is there a minimum of two criteria No selected? Query Text:Check all the applicable criteria. A minimum of two criteria are recommended for diagnosis of either severe or non-severe malnutrition. Malnutrition Related to Morbid Obesity Malnutrition related to morbid obesity No Intervention/Recommendation Comments 1. Continue with [facility] soft diet as ordered. 2. Monitor PO intake, wt, labs and skin integrity 3. F/U as low risk in 7 days Expected Outcomes/Goals Expected Outcomes/Goals 1. PO intake to meet at least 75% of nutritional needs. 2. Wt stability, skin to remain intact, labs to approach WNL.
[2018-06-30] MEDS: Pantoprazole 40 mg EC Tab PO SCH (09:24)
[2018-06-30] MEDS: Insulin Glargine 100 units/ml 10ml Vial SUBQ SCH (20:53)
--- NOTE | 2018-06-30 21:00 | Progress Notes ---
DATE: 06/29/2018 PSYCHOLOGY PROGRESS NOTE SUBJECTIVE: The patient is seen and is interviewed. Case is discussed with staff. The patient presents as irritable as well as guarded and suspicious. The patient is taking her p.o. medications. The patient states she feels fatigued and tired. The patient's mood is still fluctuating and the patient is resisting care at times. OBJECTIVE: Mood is irritable. Affect is constricted. Thought process shows marked tangentiality. The patient is perseverating on her discharge. The patient denied any auditory or visual hallucinations or any delusions. The patient's mood swings continue to be a problem. The patient's behavior has become more redirectable though. ASSESSMENT AND PLAN: The patient's mood instability persists. We provided de-escalation for the patient's agitation and irritability. We provided a simple anger management skill for the patient to apply. We provided remotivation for the patient to become compliant and stay compliant with all aspects of her care and treatment. We provided coping strategies for chronic severe mental illness as well as phase of life issues. We will continue supportive therapy throughout the patient's hospital stay. We will follow up in 2-3 days to continue the present treatment. JOB# [id number] REBECCA
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
[2018-07-01] MEDS: Pantoprazole 40 mg/Packet PO SCH (06:31)
[2018-07-01] MEDS: INSULIN LISPRO SLIDING SCALE 100 UNITS/ML UNIT SUBQ SCH ×4 (06:31→20:50)
[2018-07-01] MEDS: Pantoprazole 40 mg EC Tab PO SCH (10:18)
--- NOTE | 2018-07-01 11:41 | Internal Medicine Prog Note ---
Internal Medicine Subjective - Subjective Patient seen and examined:: with staff, chart reviewed Patient is:: awake, verbal, interactive, confused Per staff patient has:: no adverse event, no episodes of fall, tolerating meds Internal Medicine Objective - Results Result Diagrams: 06/22/18 23:35 06/22/18 23:30 Recent Labs: Laboratory Last Values WBC 6.6 Th/cmm (4.8-10.8) 06/22/18 23:35 RBC 3.75 Mil/cmm (3.80-5.10) L 06/22/18 23:35 Hgb 12.1 gm/dL (12-16) 06/22/18 23:35 Hct 35.9 % (41.0-60) L 06/22/18:35 MCV 95.6 fl (81-100) 06/22/18 23:35 MCH 32.3 pg (27.0-31.0) H 06/22/18 23:35 MCHC Differential 33.8 pg (28.0-36.0) 06/22/18 23:35 RDW 12.7 % (11.5-20.0) 06/22/18 23:35 Plt Count 217 Th/cmm (150-400) 06/22/18 23:35 MPV 8.8 fl 06/22/18 23:35 Add Manual Diff YES 06/22/18 23:35 Neutrophils (Manual) 48 % (40-80) 06/22/18:35 Lymphocytes 40 % (20-50) 06/22/18 23:35 Monocytes 12 % (2-10) H 06/22/18 23:35 PT 10.6 SECONDS (9.5-11.5) 06/22/18 23:35 INR 1.02 (0.5-1.4) 06/22/18 23:35 PTT (Actin FS) 27.7 SECONDS (26.0-38.0) 06/22/18 23:35 Sodium 139 mEq/L (136-145) 06/22/18 23:30 Potassium 3.6 mEq/L (3.5-5.1) 06/22/18 23:30 Chloride 102 mEq/L (98-107) 06/22/18 23:30 Carbon Dioxide 27.5 mEq/L (21.0-31.0) 06/22/18 23:30 Anion Gap 13.1 (7.0-16.0) 06/22/18 23:30 BUN 13 mg/dL (7-25) 06/22/18 23:30 Creatinine 0.7 mg/dL (0.6-1.2) 06/22/18 23:30 Est GFR ( Amer) > 60.0 ml/min (>90) 06/22/18 23:30 Est GFR (Non-Af Amer) > 60.0 ml/min 06/22/18 23:30 BUN/Creatinine Ratio 18.6 06/22/18 23:30 Glucose 137 mg/dL (70-105) H 06/22/18 23:30 POC Glucose 178 MG/DL (70 - 105) H 07/01/18 06:23 Calcium 9.1 mg/dL (8.6-10.3) 06/22/18 23:30 Total Bilirubin 0.7 mg/dL (0.3-1.0) 06/22/18 23:30 AST 35 U/L (13-39) 06/22/18 23:30 ALT 34 U/L (7-52) 06/22/18 23:30 Alkaline Phosphatase 65 U/L (34-104) 06/22/18 23:30 Troponin I < 0.01 ng/mL (0.01-0.05) L 06/22/18 23:35 Total Protein 7.4 gm/dL (6.0-8.3) 06/22/18 23:30 Albumin 4.0 gm/dL (3.7-5.3) 06/22/18 23:30 Globulin 3.4 gm/dL 06/22/18 23:30 Albumin/Globulin Ratio 1.2 (1.0-1.8) 06/22/18 23:30 Triglycerides 73 mg/dL (<150) 06/23/18 00:00 Cholesterol 132 mg/dL (<200) 06/23/18 00:00 LDL Cholesterol Direct 81 mg/dL (75-193) 06/23/18 00:00 HDL Cholesterol 49 mg/dL (23-92) 06/23/18 00:00 Urine Source CLEAN C 06/22/18 23:15 Urine Color STRAW 06/22/18 23:15 Urine Clarity CLEAR (CLEAR) 06/22/18 23:15 Urine pH 5.5 (4.6 - 8.0) 06/22/18 23:15 Ur Specific [place] 1.015 (1.005-1.030) 06/22/18 23:15 Urine Protein NEGATIVE mg/dL (NEGATIVE) 06/22/18 23:15 Urine Glucose (UA) NEGATIVE mg/dL (NEGATIVE) 06/22/18 23:15 Urine Ketones TRACE mg/dL (NEGATIVE) 06/22/18 23:15 Urine Blood NEGATIVE (NEGATIVE) 06/22/18 23:15 Urine Nitrate NEGATIVE (NEGATIVE) 06/22/18 23:15 Urine Bilirubin NEGATIVE (NEGATIVE) 06/22/18 23:15 Urine Urobilinogen 0.2 E.U./dL (0.2 - 1.0) 06/22/18 23:15 Ur Leukocyte Esterase NEGATIVE (NEGATIVE) 06/22/18 23:15 Urine RBC NONE SEEN /hpf (0-5) 06/22/18 23:15 Urine WBC NONE SEEN /hpf (0-5) 06/22/18 23:15 Ur Epithelial Cells RARE /lpf (FEW) 06/22/18 23:15 Urine Bacteria NONE SEEN /hpf (NONE SEEN) 06/22/18 23:15 Urine Opiates Screen NEGATIVE (NEGATIVE) 06/22/18 23:15 Urine Methadone Screen NEGATIVE (NEGATIVE) 06/22/18 23:15 Ur Barbiturates Screen NEGATIVE (NEGATIVE) 06/22/18 23:15 Ur Tricyclics Screen NEGATIVE (NEGATIVE) 06/22/18 23:15 Ur Phencyclidine Scrn NEGATIVE (NEGATIVE) 06/22/18 23:15 Amphetamines Screen NEGATIVE (NEGATIVE) 06/22/18 23:15 U Methamphetamines Scrn NEGATIVE (NEGATIVE) 06/22/18 23:15 U Benzodiazepines Scrn NEGATIVE (NEGATIVE) 06/22/18 23:15 U Cocaine Metab Screen NEGATIVE (NEGATIVE) 06/22/18 23:15 U Cannabinoids Screen NEGATIVE (NEGATIVE) 06/22/18 23:15 - Physical Exam Vitals and I&O: Vital Signs Temp 97.6 F 06/30/18 20:00 Pulse 83 06/30/18 20:00 Resp 20 06/30/18 20:00 BP 128/73 06/30/18 20:00 Pulse Ox 97 06/30/18 20:00 Intake & Output 06/30/18 07/01/18 07/01/18 18:59 06:59 18:59 Intake Total 1000 120 Balance 1000 120 Intake: Oral 1000 120 Other: # Voids 3 3 # Bowel Movements 1 Stool Characteristics Soft Active Medications: Current Medications Acetaminophen (Tylenol) 650 mg PO Q4HR PRN PRN Reason: Pain or Fever >101 Stop: 08/22/18 02:04 Acetaminophen/Hydrocodone Bitart ([place] 10 Mg/325 Mg) 1 tab PO Q6H PRN PRN Reason: Pain (Severe) Stop: 08/22/18 02:04 Last Admin: 06/29/18 02:35 Dose: 1 tab Carvedilol (Coreg) 3.125 mg PO BIDWM [facility] Stop: 08/22/18 07:59 Last Admin: 07/01/18 08:18 Dose: Not Given Cyclobenzaprine HCl (Flexeril) 10 mg PO DAILY [facility] Stop: 08/22/18 08:59 Last Admin: 07/01/18 10:18 Dose: 10 mg Dextrose (D50w) 50 ml IVP PRN PRN PRN Reason: Blood Glucose less than 70 Stop: 08/23/18 10:44 Dextrose (Glutose 40%) 18.75 gm PO UD PRN PRN Reason: Blood Glucose less than 70 Stop: 08/23/18 10:44 Divalproex Sodium (Depakote Dr) 500 mg PO BID [facility]; Protocol Stop: 08/22/18 08:59 Last Admin: 07/01/18 10:18 Dose: 500 mg Docusate Sodium (Colace) 100 mg PO DAILY [facility] Stop: 08/22/18 08:59 Last Admin: 07/01/18 10:18 Dose: 100 mg Folic Acid (Folate) 1 mg PO DAILY [facility] Stop: 08/22/18 08:59 Last Admin: 07/01/18 10:18 Dose: 1 mg Furosemide (Lasix) 20 mg PO BID [facility] Stop: 08/22/18 08:59 Last Admin: 06/30/18 17:36 Dose: 20 mg Glucagon (Glucagen) 1 mg IM PRN PRN PRN Reason: Blood Glucose less than 70 Stop: 08/23/18 10:44 Ibuprofen (Motrin) 600 mg PO Q8H PRN PRN Reason: PAIN ON LEFT THUMB Stop: 08/26/18 16:04 Insulin Glargine (Lantus Insulin) 15 units SUBQ HS [facility] Stop: 08/22/18 20:59 Last Admin: 06/30/18 20:53 Dose: 15 units Insulin Human Lispro (Humalog Insulin Sliding Scale) 0 units SUBQ ACHS [facility]; Protocol Stop: 08/23/18 11:29 Last Admin: 07/01/18 06:31 Dose: Not Given Lisinopril (Zestril) 10 mg PO DAILY [facility] Stop: 08/22/18 08:59 Last Admin: 06/30/18 09:22 Dose: 10 mg Loratadine (Claritin) 10 mg PO DAILY [facility] Stop: 08/22/18 08:59 Last Admin: 07/01/18 10:18 Dose: 10 mg Lorazepam (Ativan) 1 mg PO BID PRN; Protocol PRN Reason: Anxiety Stop: 08/22/18 02:04 Last Admin: 06/30/18 12:15 Dose: 1 mg Magnesium Hydroxide (Milk Of Magnesia) 30 ml PO HS PRN PRN Reason: Constipation Stop: 08/25/18 03:49 Last Admin: 06/26/18 04:03 Dose: 30 ml Methocarbamol (Robaxin) 500 mg PO Q8HR PRN PRN Reason: MUSCLE SPASMS Stop: 08/22/18 02:04 Pantoprazole Sodium (Protonix) 20 mg PO QDAC [facility] Stop: 08/22/18 07:29 Last Admin: 07/01/18 06:31 Dose: 20 mg Pantoprazole Sodium (Protonix) 40 mg PO DAILY [facility] Stop: 08/24/18 08:59 Last Admin: 07/01/18 10:18 Dose: 40 mg Quetiapine Fumarate (Seroquel) 200 mg PO HS [facility]; Protocol Stop: 08/25/18 20:59 Last Admin: 06/30/18 20:54 Dose: 200 mg Quetiapine Fumarate (Seroquel) 100 mg PO DAILY [facility]; Protocol Stop: 08/28/18 08:59 Rivaroxaban (Xarelto) 15 mg PO BID [facility] Stop: 08/22/18 08:59 Last Admin: 07/01/18 10:18 Dose: 15 mg Zolpidem Tartrate (Ambien) 5 mg PO HS PRN PRN Reason: Insomnia Stop: 08/22/18 01:59 Last Admin: 06/26/18 20:15 Dose: 5 mg General: demented HEENT: NC/AT, PERRLA Neck: Supple Lungs: CTAB Cardiovascular: RRR, Normal S1, Normal S2, without murmur Abdomen: soft, non-tender, non-distended Extremities: excoriation Neurological: no change Internal Medicine Assmt/Plan - Assessment Assessment: - Assessment Assessment: ASSESSMENT: Agitation, hypertension, congestive heart failure, history of deep venous thrombosis disease, gastroesophageal reflux disease. - Plan Plan: PLAN: We will continue the patient's medications, Xarelto, lisinopril. We will monitor the patient's glucose level as well. We will continue to monitor this patient. - Plan Plan: seen w rn Nutritional Asmnt/Malnutr-PDOC - Dietary Evaluation Malnutrition Findings (Please click <Entered> for more info): Nutritional Asmnt/Malnutrition Start: 06/23/18 10: 25 Text: Status: Complete Freq: Protocol: Document 06/27/18 15:06 AUGUST (Rec: 06/27/18 15:11 AUGUST [email or web address]) Nutritional Asmnt/Malnutrition Patient General Information Diagnosis psychosis NOS Pertinent Medical Hx/Surgical Hx CHF, psychosis, DM, HTN, GERD, DVT Subjective Information Pt seen eating lunch in dining room, confused. Per EMR, PO intake 100%. Current Diet Order/ Nutrition Support [facility], [facility] Pertinent Medications colace, folate, lasix, lantus, humalog, protonix, seroquel Pertinent Labs 06/26 POC 100-212 06/22 glucose 137 Nutritional Hx/Data Height 1.65 m Height (Calculated Centimeters) 165.1 Current Weight (lbs) 94.347 kg Weight (Calculated Kilograms) 94.3 Weight (Calculated Grams) 04022.2 [place] Body Weight 125 Body Mass Index (BMI) 34.6 Weight Status Obese GI Symptoms GI Symptoms None Last BM 06/26 Difficult in: None Skin Integrity/Comment: dryness Current %PO Good (75-100%) Estimated Nutritional Goals BEE in Kcals: Adj wt of IBW Calories/Kcals/Kg 25-30 Kcals Calculated 6639-0200 Protein: Adj wt of IBW Protein g/k Protein Calculated 66 Fluid: ml 1650-1980ml (1ml/kcal) Nutritional Problem 1. Problem Problem altered nutrition related labs Etiology hyperglycemia Signs/Symptoms: glucose 137 POC 100-212 Malnutrition Alert Is there a minimum of two criteria No selected? Query Text:Check all the applicable criteria. A minimum of two criteria are recommended for diagnosis of either severe or non-severe malnutrition. Malnutrition Related to Morbid Obesity Malnutrition related to morbid obesity No Intervention/Recommendation Comments 1. Continue with [facility] soft diet as ordered. 2. Monitor PO intake, wt, labs and skin integrity 3. F/U as low risk in 7 days Expected Outcomes/Goals Expected Outcomes/Goals 1. PO intake to meet at least 75% of nutritional needs. 2. Wt stability, skin to remain intact, labs to approach WNL.
[2018-07-01] MEDS: Insulin Glargine 100 units/ml 10ml Vial SUBQ SCH (20:50)
--- NOTE | 2018-07-01 21:45 | Progress Notes ---
DATE: 07/01/2018 SUBJECTIVE: Staff was spoken to. The patient is interviewed. Mood is noted to be irritable. Affect is constricted. Insight and judgment are noted to be improving. Impulse control seems to be a problem. The patient is stating that compared to before, she is not that sleepy, but is stating that she does not want to go back to the same place and wants to go to a different place. The patient has been informed about the conservator and whatever the conservator is going to be deciding, we will be going with it. The patient is not liking that. ASSESSMENT: The patient is still impulsive. PLAN: To continue the patient with the supportive therapy and followup. [facility]# [id number]
[2018-07-01] MEDS: Hydrocodone/APAP 10 mg/325 mg Tab PO PRN (23:31)
[2018-07-02] MEDS: INSULIN LISPRO SLIDING SCALE 100 UNITS/ML UNIT SUBQ SCH ×5 (06:33→20:45)
[2018-07-02] MEDS: Pantoprazole 40 mg EC Tab PO SCH (06:46)
--- NOTE | 2018-07-02 10:53 | Internal Medicine Prog Note ---
Internal Medicine Subjective - Subjective Patient seen and examined:: with staff, chart reviewed Patient is:: awake, verbal, interactive, confused Per staff patient has:: no adverse event, no episodes of fall, tolerating meds Internal Medicine Objective - Results Result Diagrams: 06/22/18 23:35 06/22/18 23:30 Recent Labs: Laboratory Last Values WBC 6.6 Th/cmm (4.8-10.8) 06/22/18 23:35 RBC 3.75 Mil/cmm (3.80-5.10) L 06/22/18 23:35 Hgb 12.1 gm/dL (12-16) 06/22/18 23:35 Hct 35.9 % (41.0-60) L 06/22/18:35 MCV 95.6 fl (81-100) 06/22/18 23:35 MCH 32.3 pg (27.0-31.0) H 06/22/18 23:35 MCHC Differential 33.8 pg (28.0-36.0) 06/22/18 23:35 RDW 12.7 % (11.5-20.0) 06/22/18 23:35 Plt Count 217 Th/cmm (150-400) 06/22/18 23:35 MPV 8.8 fl 06/22/18 23:35 Add Manual Diff YES 06/22/18 23:35 Neutrophils (Manual) 48 % (40-80) 06/22/18:35 Lymphocytes 40 % (20-50) 06/22/18 23:35 Monocytes 12 % (2-10) H 06/22/18 23:35 PT 10.6 SECONDS (9.5-11.5) 06/22/18 23:35 INR 1.02 (0.5-1.4) 06/22/18 23:35 PTT (Actin FS) 27.7 SECONDS (26.0-38.0) 06/22/18 23:35 Sodium 139 mEq/L (136-145) 06/22/18 23:30 Potassium 3.6 mEq/L (3.5-5.1) 06/22/18 23:30 Chloride 102 mEq/L (98-107) 06/22/18 23:30 Carbon Dioxide 27.5 mEq/L (21.0-31.0) 06/22/18 23:30 Anion Gap 13.1 (7.0-16.0) 06/22/18 23:30 BUN 13 mg/dL (7-25) 06/22/18 23:30 Creatinine 0.7 mg/dL (0.6-1.2) 06/22/18 23:30 Est GFR ( Amer) > 60.0 ml/min (>90) 06/22/18 23:30 Est GFR (Non-Af Amer) > 60.0 ml/min 06/22/18 23:30 BUN/Creatinine Ratio 18.6 06/22/18 23:30 Glucose 137 mg/dL (70-105) H 06/22/18 23:30 POC Glucose 185 MG/DL (70 - 105) H 07/02/18 06:08 Calcium 9.1 mg/dL (8.6-10.3) 06/22/18 23:30 Total Bilirubin 0.7 mg/dL (0.3-1.0) 06/22/18 23:30 AST 35 U/L (13-39) 06/22/18 23:30 ALT 34 U/L (7-52) 06/22/18 23:30 Alkaline Phosphatase 65 U/L (34-104) 06/22/18 23:30 Troponin I < 0.01 ng/mL (0.01-0.05) L 06/22/18 23:35 Total Protein 7.4 gm/dL (6.0-8.3) 06/22/18 23:30 Albumin 4.0 gm/dL (3.7-5.3) 06/22/18 23:30 Globulin 3.4 gm/dL 06/22/18 23:30 Albumin/Globulin Ratio 1.2 (1.0-1.8) 06/22/18 23:30 Triglycerides 73 mg/dL (<150) 06/23/18 00:00 Cholesterol 132 mg/dL (<200) 06/23/18 00:00 LDL Cholesterol Direct 81 mg/dL (75-193) 06/23/18 00:00 HDL Cholesterol 49 mg/dL (23-92) 06/23/18 00:00 Urine Source CLEAN C 06/22/18 23:15 Urine Color STRAW 06/22/18 23:15 Urine Clarity CLEAR (CLEAR) 06/22/18 23:15 Urine pH 5.5 (4.6 - 8.0) 06/22/18 23:15 Ur Specific [place] 1.015 (1.005-1.030) 06/22/18 23:15 Urine Protein NEGATIVE mg/dL (NEGATIVE) 06/22/18 23:15 Urine Glucose (UA) NEGATIVE mg/dL (NEGATIVE) 06/22/18 23:15 Urine Ketones TRACE mg/dL (NEGATIVE) 06/22/18 23:15 Urine Blood NEGATIVE (NEGATIVE) 06/22/18 23:15 Urine Nitrate NEGATIVE (NEGATIVE) 06/22/18 23:15 Urine Bilirubin NEGATIVE (NEGATIVE) 06/22/18 23:15 Urine Urobilinogen 0.2 E.U./dL (0.2 - 1.0) 06/22/18 23:15 Ur Leukocyte Esterase NEGATIVE (NEGATIVE) 06/22/18 23:15 Urine RBC NONE SEEN /hpf (0-5) 06/22/18 23:15 Urine WBC NONE SEEN /hpf (0-5) 06/22/18 23:15 Ur Epithelial Cells RARE /lpf (FEW) 06/22/18 23:15 Urine Bacteria NONE SEEN /hpf (NONE SEEN) 06/22/18 23:15 Urine Opiates Screen NEGATIVE (NEGATIVE) 06/22/18 23:15 Urine Methadone Screen NEGATIVE (NEGATIVE) 06/22/18 23:15 Ur Barbiturates Screen NEGATIVE (NEGATIVE) 06/22/18 23:15 Ur Tricyclics Screen NEGATIVE (NEGATIVE) 06/22/18 23:15 Ur Phencyclidine Scrn NEGATIVE (NEGATIVE) 06/22/18 23:15 Amphetamines Screen NEGATIVE (NEGATIVE) 06/22/18 23:15 U Methamphetamines Scrn NEGATIVE (NEGATIVE) 06/22/18 23:15 U Benzodiazepines Scrn NEGATIVE (NEGATIVE) 06/22/18 23:15 U Cocaine Metab Screen NEGATIVE (NEGATIVE) 06/22/18 23:15 U Cannabinoids Screen NEGATIVE (NEGATIVE) 06/22/18 23:15 - Physical Exam Vitals and I&O: Vital Signs Temp 98.8 F 07/02/18 05:51 Pulse 77 07/02/18 09:11 Resp 20 07/02/18 05:51 BP 127/78 07/02/18 09:11 Pulse Ox 97 07/02/18 05:51 Intake & Output 07/01/18 07/02/18 07/02/18 18:59 06:59 18:59 Intake Total 360 Balance 360 Intake: Oral 360 Other: # Voids 2 # Bowel Movements 1 Stool Characteristics Soft Active Medications: Current Medications Acetaminophen (Tylenol) 650 mg PO Q4HR PRN PRN Reason: Pain or Fever >101 Stop: 08/22/18 02:04 Acetaminophen/Hydrocodone Bitart ([place] 10 Mg/325 Mg) 1 tab PO Q6H PRN PRN Reason: Pain (Severe) Stop: 08/22/18 02:04 Last Admin: 07/01/18 23:31 Dose: 1 tab Carvedilol (Coreg) 3.125 mg PO BIDWM [facility] Stop: 08/22/18 07:59 Last Admin: 07/02/18 08:00 Dose: Not Given Cyclobenzaprine HCl (Flexeril) 10 mg PO DAILY [facility] Stop: 08/22/18 08:59 Last Admin: 07/02/18 09:11 Dose: 10 mg Dextrose (D50w) 50 ml IVP PRN PRN PRN Reason: Blood Glucose less than 70 Stop: 08/23/18 10:44 Dextrose (Glutose 40%) 18.75 gm PO UD PRN PRN Reason: Blood Glucose less than 70 Stop: 08/23/18 10:44 Divalproex Sodium (Depakote Dr) 500 mg PO BID [facility]; Protocol Stop: 08/22/18 08:59 Last Admin: 07/02/18 09:11 Dose: 500 mg Docusate Sodium (Colace) 100 mg PO DAILY [facility] Stop: 08/22/18 08:59 Last Admin: 07/02/18 09:11 Dose: 100 mg Folic Acid (Folate) 1 mg PO DAILY [facility] Stop: 08/22/18 08:59 Last Admin: 07/02/18 09:10 Dose: 1 mg Furosemide (Lasix) 20 mg PO BID [facility] Stop: 08/22/18 08:59 Last Admin: 07/02/18 09:11 Dose: 20 mg Glucagon (Glucagen) 1 mg IM PRN PRN PRN Reason: Blood Glucose less than 70 Stop: 08/23/18 10:44 Ibuprofen (Motrin) 600 mg PO Q8H PRN PRN Reason: PAIN ON LEFT THUMB Stop: 08/26/18 16:04 Insulin Glargine (Lantus Insulin) 15 units SUBQ HS [facility] Stop: 08/22/18 20:59 Last Admin: 07/01/18 20:50 Dose: 15 units Insulin Human Lispro (Humalog Insulin Sliding Scale) 0 units SUBQ ACHS [facility]; Protocol Stop: 08/23/18 11:29 Last Admin: 07/02/18 06:33 Dose: Not Given Lisinopril (Zestril) 10 mg PO DAILY [facility] Stop: 08/22/18 08:59 Last Admin: 07/02/18 09:11 Dose: 10 mg Loratadine (Claritin) 10 mg PO DAILY [facility] Stop: 08/22/18 08:59 Last Admin: 07/02/18 09:10 Dose: 10 mg Lorazepam (Ativan) 1 mg PO BID PRN; Protocol PRN Reason: Anxiety Stop: 08/22/18 02:04 Last Admin: 06/30/18 12:15 Dose: 1 mg Magnesium Hydroxide (Milk Of Magnesia) 30 ml PO HS PRN PRN Reason: Constipation Stop: 08/25/18 03:49 Last Admin: 06/26/18 04:03 Dose: 30 ml Methocarbamol (Robaxin) 500 mg PO Q8HR PRN PRN Reason: MUSCLE SPASMS Stop: 08/22/18 02:04 Pantoprazole Sodium (Protonix) 40 mg PO QDAC [facility] Stop: 08/31/18 07:29 Last Admin: 07/02/18 06:46 Dose: 40 mg Quetiapine Fumarate (Seroquel) 200 mg PO HS [facility]; Protocol Stop: 08/25/18 20:59 Last Admin: 07/01/18 20:50 Dose: 200 mg Quetiapine Fumarate (Seroquel) 100 mg PO DAILY [facility]; Protocol Stop: 08/28/18 08:59 Last Admin: 07/02/18 09:10 Dose: 100 mg Rivaroxaban (Xarelto) 15 mg PO BID [facility] Stop: 08/22/18 08:59 Last Admin: 07/02/18 09:10 Dose: 15 mg Zolpidem Tartrate (Ambien) 5 mg PO HS PRN PRN Reason: Insomnia Stop: 08/22/18 01:59 Last Admin: 06/26/18 20:15 Dose: 5 mg General: demented HEENT: NC/AT, PERRLA Neck: Supple Lungs: CTAB Cardiovascular: RRR, Normal S1, Normal S2, without murmur Abdomen: soft, non-tender, non-distended Extremities: excoriation Neurological: no change Internal Medicine Assmt/Plan - Assessment Assessment: - Assessment Assessment: ASSESSMENT: Agitation, hypertension, congestive heart failure, history of deep venous thrombosis disease, gastroesophageal reflux disease. - Plan Plan: PLAN: We will continue the patient's medications, Xarelto, lisinopril. We will monitor the patient's glucose level as well. We will continue to monitor this patient. - Plan Plan: seen w rn Nutritional Asmnt/Malnutr-PDOC - Dietary Evaluation Malnutrition Findings (Please click <Entered> for more info): Nutritional Asmnt/Malnutrition Start: 06/23/18 10: 25 Text: Status: Complete Freq: Protocol: Document 06/27/18 15:06 LCHENG (Rec: 06/27/18 15:11 LCHENG [email or web address]) Nutritional Asmnt/Malnutrition Patient General Information Diagnosis psychosis NOS Pertinent Medical Hx/Surgical Hx CHF, psychosis, DM, HTN, GERD, DVT Subjective Information Pt seen eating lunch in dining room, confused. Per EMR, PO intake 100%. Current Diet Order/ [facility] Pertinent Medications colace, folate, lasix, lantus, humalog, protonix, seroquel Pertinent Labs 06/26 POC 100-212 06/22 glucose 137 Nutritional Hx/Data Height 1.65 m Height (Calculated Centimeters) 165.1 Current Weight (lbs) 94.347 kg Weight (Calculated Kilograms) 94.3 Weight (Calculated Grams) 41392.2 [place] Body Weight 125 Body Mass Index (BMI) 34.6 Weight Status Obese GI Symptoms GI Symptoms None Last BM 06/26 Difficult in: None Skin Integrity/Comment: dryness Current %PO Good (75-100%) Estimated Nutritional Goals BEE in Kcals: Adj wt of IBW Calories/Kcals/Kg 25-30 Kcals Calculated 6840-8765 Protein: Adj wt of IBW Protein g/k Protein Calculated 66 Fluid: ml 1650-1980ml (1ml/kcal) Nutritional Problem 1. Problem Problem altered nutrition related labs Etiology hyperglycemia Signs/Symptoms: glucose 137 POC 100-212 Malnutrition Alert Is there a minimum of two criteria No selected? Query Text:Check all the applicable criteria. A minimum of two criteria are recommended for diagnosis of either severe or non-severe malnutrition. Malnutrition Related to Morbid Obesity Malnutrition related to morbid obesity No Intervention/Recommendation Comments 1. Continue with [facility] soft diet as ordered. 2. Monitor PO intake, wt, labs and skin integrity 3. F/U as low risk in 7 days Expected Outcomes/Goals Expected Outcomes/Goals 1. PO intake to meet at least 75% of nutritional needs. 2. Wt stability, skin to remain intact, labs to approach WNL.
[2018-07-02] MEDS: Insulin Glargine 100 units/ml 10ml Vial SUBQ SCH (20:51)
[2018-07-02] MEDS: Hydrocodone/APAP 10 mg/325 mg Tab PO PRN (22:38)
--- NOTE | 2018-07-03 01:38 | Progress Notes ---
DATE: 07/02/2018 PSYCHOLOGY PROGRESS NOTE SUBJECTIVE: The patient is seen and is interviewed. Case is discussed with staff. The patient presents as irritable. Affect is constricted. The patient continues to having problems with poor impulse control. The patient is stating to this abstract writer that she does not want to return to her placement. It is explained to the patient that she is conserved and that the conservator will decide the final placement and the patient became argumentative and dismissive. OBJECTIVE: Mood is irritable. Affect is constricted. Thought process shows to perseverate the patient's placement. The patient denied any auditory or visual hallucinations; however, the patient is exhibiting signs and symptoms of paranoid ideation. The patient continues to be resistant to care. ASSESSMENT AND PLAN: Impulse control is still problematic. We will provide remotivation for the patient to become compliant and stay compliant with all aspects of her care and treatment. We will provide reality orientation, differentiation and integration. We will provide coping strategies for chronic severe mental illness. We will encourage the patient to be able to be open to and process and accept new placement upon discharge. We will provide coping strategies for the patient to adjust to her new placement. We will encourage the patient to demonstrate emotional and self-regulation prior to her discharge. We will follow up in 2-3 days to continue the present treatment. JOB# [id number] REBECCA
--- NOTE | 2018-07-03 03:42 | Progress Notes ---
DATE: 07/02/2018 SUBJECTIVE: Staff was spoken to. The patient is interviewed. Mood is noted to be irritable. Affect is constricted. Insight and judgment at this time are noted to be still impaired. The patient is very argumentative. The patient is stating that the conservator has been keeping most of her money and she had been left with only 2 dollars. The patient is stating that she has been trying to get in touch with her cousin from [place]. The patient is going on and on. Insight and judgment at this time are noted to be still impaired. Impulse control is noted to be limited. The patient is stating that she is not willing to go back to the previous facility and is stating that we should be able to get her to a different one and the patient is on a conservatorship and the patient does not able to understand the significance of it. The patient is currently on 500 mg twice a day of the Depakote and the patient is also on the Seroquel, which she has been getting 100 mg in the morning and 200 mg at bedtime and the dose of the Seroquel is going to be increased to 200 mg twice a day and the patient is going to be followed up with the supportive therapy. Please note that the patient is not ready to be discharged to a lower level of care in view of her acute mood swings and psychosis. JOB# [id number]
[2018-07-03] MEDS: INSULIN LISPRO SLIDING SCALE 100 UNITS/ML UNIT SUBQ SCH ×2 (06:34→12:38)
[2018-07-03] MEDS: Pantoprazole 40 mg EC Tab PO SCH (06:34)
--- NOTE | 2018-07-03 11:35 | Internal Medicine Prog Note ---
Internal Medicine Subjective - Subjective Patient seen and examined:: with staff, chart reviewed Patient is:: awake, verbal, interactive, confused Per staff patient has:: no adverse event, no episodes of fall, tolerating meds Internal Medicine Objective - Results Result Diagrams: 06/22/18 23:35 06/22/18 23:30 Recent Labs: Laboratory Last Values WBC 6.6 Th/cmm (4.8-10.8) 06/22/18 23:35 RBC 3.75 Mil/cmm (3.80-5.10) L 06/22/18 23:35 Hgb 12.1 gm/dL (12-16) 06/22/18 23:35 Hct 35.9 % (41.0-60) L 06/22/18:35 MCV 95.6 fl (81-100) 06/22/18 23:35 MCH 32.3 pg (27.0-31.0) H 06/22/18 23:35 MCHC Differential 33.8 pg (28.0-36.0) 06/22/18 23:35 RDW 12.7 % (11.5-20.0) 06/22/18 23:35 Plt Count 217 Th/cmm (150-400) 06/22/18 23:35 MPV 8.8 fl 06/22/18 23:35 Add Manual Diff YES 06/22/18 23:35 Neutrophils (Manual) 48 % (40-80) 06/22/18:35 Lymphocytes 40 % (20-50) 06/22/18 23:35 Monocytes 12 % (2-10) H 06/22/18 23:35 PT 10.6 SECONDS (9.5-11.5) 06/22/18 23:35 INR 1.02 (0.5-1.4) 06/22/18 23:35 PTT (Actin FS) 27.7 SECONDS (26.0-38.0) 06/22/18 23:35 Sodium 139 mEq/L (136-145) 06/22/18 23:30 Potassium 3.6 mEq/L (3.5-5.1) 06/22/18 23:30 Chloride 102 mEq/L (98-107) 06/22/18 23:30 Carbon Dioxide 27.5 mEq/L (21.0-31.0) 06/22/18 23:30 Anion Gap 13.1 (7.0-16.0) 06/22/18 23:30 BUN 13 mg/dL (7-25) 06/22/18 23:30 Creatinine 0.7 mg/dL (0.6-1.2) 06/22/18 23:30 Est GFR ( Amer) > 60.0 ml/min (>90) 06/22/18 23:30 Est GFR (Non-Af Amer) > 60.0 ml/min 06/22/18 23:30 BUN/Creatinine Ratio 18.6 06/22/18 23:30 Glucose 137 mg/dL (70-105) H 06/22/18 23:30 POC Glucose 123 MG/DL (70 - 105) H 07/03/18 06:35 Calcium 9.1 mg/dL (8.6-10.3) 06/22/18 23:30 Total Bilirubin 0.7 mg/dL (0.3-1.0) 06/22/18 23:30 AST 35 U/L (13-39) 06/22/18 23:30 ALT 34 U/L (7-52) 06/22/18 23:30 Alkaline Phosphatase 65 U/L (34-104) 06/22/18 23:30 Troponin I < 0.01 ng/mL (0.01-0.05) L 06/22/18 23:35 Total Protein 7.4 gm/dL (6.0-8.3) 06/22/18 23:30 Albumin 4.0 gm/dL (3.7-5.3) 06/22/18 23:30 Globulin 3.4 gm/dL 06/22/18 23:30 Albumin/Globulin Ratio 1.2 (1.0-1.8) 06/22/18 23:30 Triglycerides 73 mg/dL (<150) 06/23/18 00:00 Cholesterol 132 mg/dL (<200) 06/23/18 00:00 LDL Cholesterol Direct 81 mg/dL (75-193) 06/23/18 00:00 HDL Cholesterol 49 mg/dL (23-92) 06/23/18 00:00 Urine Source CLEAN C 06/22/18 23:15 Urine Color STRAW 06/22/18 23:15 Urine Clarity CLEAR (CLEAR) 06/22/18 23:15 Urine pH 5.5 (4.6 - 8.0) 06/22/18 23:15 Ur Specific [place] 1.015 (1.005-1.030) 06/22/18 23:15 Urine Protein NEGATIVE mg/dL (NEGATIVE) 06/22/18 23:15 Urine Glucose (UA) NEGATIVE mg/dL (NEGATIVE) 06/22/18 23:15 Urine Ketones TRACE mg/dL (NEGATIVE) 06/22/18 23:15 Urine Blood NEGATIVE (NEGATIVE) 06/22/18 23:15 Urine Nitrate NEGATIVE (NEGATIVE) 06/22/18 23:15 Urine Bilirubin NEGATIVE (NEGATIVE) 06/22/18 23:15 Urine Urobilinogen 0.2 E.U./dL (0.2 - 1.0) 06/22/18 23:15 Ur Leukocyte Esterase NEGATIVE (NEGATIVE) 06/22/18 23:15 Urine RBC NONE SEEN /hpf (0-5) 06/22/18 23:15 Urine WBC NONE SEEN /hpf (0-5) 06/22/18 23:15 Ur Epithelial Cells RARE /lpf (FEW) 06/22/18 23:15 Urine Bacteria NONE SEEN /hpf (NONE SEEN) 06/22/18 23:15 Urine Opiates Screen NEGATIVE (NEGATIVE) 06/22/18 23:15 Urine Methadone Screen NEGATIVE (NEGATIVE) 06/22/18 23:15 Ur Barbiturates Screen NEGATIVE (NEGATIVE) 06/22/18 23:15 Ur Tricyclics Screen NEGATIVE (NEGATIVE) 06/22/18 23:15 Ur Phencyclidine Scrn NEGATIVE (NEGATIVE) 06/22/18 23:15 Amphetamines Screen NEGATIVE (NEGATIVE) 06/22/18 23:15 U Methamphetamines Scrn NEGATIVE (NEGATIVE) 06/22/18 23:15 U Benzodiazepines Scrn NEGATIVE (NEGATIVE) 06/22/18 23:15 U Cocaine Metab Screen NEGATIVE (NEGATIVE) 06/22/18 23:15 U Cannabinoids Screen NEGATIVE (NEGATIVE) 06/22/18 23:15 - Physical Exam Vitals and I&O: Vital Signs Temp 97.8 F 07/03/18 06:26 Pulse 69 07/03/18 09:56 Resp 18 07/03/18 06:26 BP 105/66 07/03/18 10:00 Pulse Ox 97 07/03/18 06:26 Intake & Output 07/02/18 07/03/18 07/03/18 18:59 06:59 18:59 Intake Total 1000 240 Balance 1000 240 Intake: Oral 1000 240 Other: # Voids 4 3 # Bowel Movements 1 0 Stool Characteristics Soft Active Medications: Current Medications Acetaminophen (Tylenol) 650 mg PO Q4HR PRN PRN Reason: Pain or Fever >101 Stop: 08/22/18 02:04 Acetaminophen/Hydrocodone Bitart (Dougherty 10 Mg/325 Mg) 1 tab PO Q6H PRN PRN Reason: Pain (Severe) Stop: 08/22/18 02:04 Last Admin: 07/02/18 22:38 Dose: 1 tab Carvedilol (Coreg) 3.125 mg PO BIDWM [facility] Stop: 08/22/18 07:59 Last Admin: 07/03/18 09:56 Dose: Not Given Cyclobenzaprine HCl (Flexeril) 10 mg PO DAILY [facility] Stop: 08/22/18 08:59 Last Admin: 07/03/18 10:00 Dose: 10 mg Dextrose (D50w) 50 ml IVP PRN PRN PRN Reason: Blood Glucose less than 70 Stop: 08/23/18 10:44 Dextrose (Glutose 40%) 18.75 gm PO UD PRN PRN Reason: Blood Glucose less than 70 Stop: 08/23/18 10:44 Divalproex Sodium (Depakote Dr) 500 mg PO BID [facility]; Protocol Stop: 08/22/18 08:59 Last Admin: 07/03/18 10:00 Dose: 500 mg Docusate Sodium (Colace) 100 mg PO DAILY [facility] Stop: 08/22/18 08:59 Last Admin: 07/03/18 10:00 Dose: 100 mg Folic Acid (Folate) 1 mg PO DAILY [facility] Stop: 08/22/18 08:59 Last Admin: 07/03/18 10:00 Dose: 1 mg Furosemide (Lasix) 20 mg PO BID [facility] Stop: 08/22/18 08:59 Last Admin: 07/03/18 10:00 Dose: Not Given Glucagon (Glucagen) 1 mg IM PRN PRN PRN Reason: Blood Glucose less than 70 Stop: 08/23/18 10:44 Ibuprofen (Motrin) 600 mg PO Q8H PRN PRN Reason: PAIN ON LEFT THUMB Stop: 08/26/18 16:04 Insulin Glargine (Lantus Insulin) 15 units SUBQ HS [facility] Stop: 08/22/18 20:59 Last Admin: 07/02/18 20:51 Dose: 15 units Insulin Human Lispro (Humalog Insulin Sliding Scale) 0 units SUBQ ACHS [facility]; Protocol Stop: 08/23/18 11:29 Last Admin: 07/03/18 06:34 Dose: Not Given Lisinopril (Zestril) 10 mg PO DAILY [facility] Stop: 08/22/18 08:59 Last Admin: 07/03/18 10:00 Dose: Not Given Loratadine (Claritin) 10 mg PO DAILY [facility] Stop: 08/22/18 08:59 Last Admin: 07/03/18 10:00 Dose: 10 mg Lorazepam (Ativan) 1 mg PO BID PRN; Protocol PRN Reason: Anxiety Stop: 08/22/18 02:04 Last Admin: 06/30/18 12:15 Dose: 1 mg Magnesium Hydroxide (Milk Of Magnesia) 30 ml PO HS PRN PRN Reason: Constipation Stop: 08/25/18 03:49 Last Admin: 06/26/18 04:03 Dose: 30 ml Methocarbamol (Robaxin) 500 mg PO Q8HR PRN PRN Reason: MUSCLE SPASMS Stop: 08/22/18 02:04 Pantoprazole Sodium (Protonix) 40 mg PO QDAC [facility] Stop: 08/31/18 07:29 Last Admin: 07/03/18 06:34 Dose: 40 mg Quetiapine Fumarate (Seroquel) 200 mg PO HS [facility]; Protocol Stop: 08/25/18 20:59 Last Admin: 07/02/18 20:44 Dose: 200 mg Quetiapine Fumarate (Seroquel) 100 mg PO DAILY [facility]; Protocol Stop: 08/28/18 08:59 Last Admin: 07/03/18 10:00 Dose: 100 mg Quetiapine Fumarate (Seroquel) 200 mg PO DAILY [facility]; Protocol Stop: 09/01/18 08:59 Rivaroxaban (Xarelto) 15 mg PO BID [facility] Stop: 08/22/18 08:59 Last Admin: 07/03/18 10:00 Dose: 15 mg Zolpidem Tartrate (Ambien) 5 mg PO HS PRN PRN Reason: Insomnia Stop: 08/22/18 01:59 Last Admin: 06/26/18 20:15 Dose: 5 mg General: demented HEENT: NC/AT, PERRLA Neck: Supple Lungs: CTAB Cardiovascular: RRR, Normal S1, Normal S2, without murmur Abdomen: soft, non-tender, non-distended Extremities: excoriation Neurological: no change Internal Medicine Assmt/Plan - Assessment Assessment: - Assessment Assessment: ASSESSMENT: Agitation, hypertension, congestive heart failure, history of deep venous thrombosis disease, gastroesophageal reflux disease. - Plan Plan: PLAN: We will continue the patient's medications, Xarelto, lisinopril. We will monitor the patient's glucose level as well. We will continue to monitor this patient. - Plan Plan: seen w rn Nutritional Asmnt/Malnutr-PDOC - Dietary Evaluation Malnutrition Findings (Please click <Entered> for more info): Nutritional Asmnt/Malnutrition Start: 06/23/18 10: 25 Text: Status: Complete Freq: Protocol: Document 06/27/18 15:06 AUGUST (Rec: 06/27/18 15:11 [id number] [email or web address]) Nutritional Asmnt/Malnutrition Patient General Information Diagnosis psychosis NOS Pertinent Medical Hx/Surgical Hx CHF, psychosis, DM, HTN, GERD, DVT Subjective Information Pt seen eating lunch in dining room, confused. Per EMR, PO intake 100%. Current Diet Order/ [facility] Pertinent Medications colace, folate, lasix, lantus, humalog, protonix, seroquel Pertinent Labs 06/26 POC 100-212 06/22 glucose 137 Nutritional Hx/Data Height 1.65 m Height (Calculated Centimeters) 165.1 Current Weight (lbs) 94.347 kg Weight (Calculated Kilograms) 94.3 Weight (Calculated Grams) 01359.2 [place] Body Weight 125 Body Mass Index (BMI) 34.6 Weight Status Obese GI Symptoms GI Symptoms None Last BM 06/26 Difficult in: None Skin Integrity/Comment: dryness Current %PO Good (75-100%) Estimated Nutritional Goals BEE in Kcals: Adj wt of IBW Calories/Kcals/Kg 25-30 Kcals Calculated 3361-5884 Protein: Adj wt of IBW Protein g/k Protein Calculated 66 Fluid: ml 1650-1980ml (1ml/kcal) Nutritional Problem 1. Problem Problem altered nutrition related labs Etiology hyperglycemia Signs/Symptoms: glucose 137 POC 100-212 Malnutrition Alert Is there a minimum of two criteria No selected? Query Text:Check all the applicable criteria. A minimum of two criteria are recommended for diagnosis of either severe or non-severe malnutrition. Malnutrition Related to Morbid Obesity Malnutrition related to morbid obesity No Intervention/Recommendation Comments 1. Continue with [facility] soft diet as ordered. 2. Monitor PO intake, wt, labs and skin integrity 3. F/U as low risk in 7 days Expected Outcomes/Goals Expected Outcomes/Goals 1. PO intake to meet at least 75% of nutritional needs. 2. Wt stability, skin to remain intact, labs to approach WNL.
--- NOTE | 2018-07-04 01:46 | Progress Notes ---
DATE: 07/03/2018 SUBJECTIVE: Staff was spoken to. The patient is interviewed. Mood is noted to be anxious. Affect is appropriate. Not suicidal or homicidal. Insight and judgment are improving. Impulse control seems to be fair. No side effects to the medications are noted. Continues to be paranoid, but the patient is stating that she was left with only two dollars and she is very angry at the conservator; however, the patient is not presenting with any threats to harm self or others and hence it is decided to discharge the patient today for followup on outpatient basis. JOB# [id number]
== END 2018-07-03 12:45 | DRG 885 ==
LOC: ER 22:41 → GERO 06-23 01:00
DX: F25.9 Schizoaffective disorder, unspecified (principal); I10 Essential (primary) hypertension; I50.9 Heart failure, unspecified; K21.9 Gastro-esophageal reflux disease without esophagitis; R45.1 Restlessness and agitation; F29 Unspecified psychosis not due to a substance or known physiological condition; F31.9 Bipolar disorder, unspecified; F41.9 Anxiety disorder, unspecified; F63.9 Impulse disorder, unspecified; E11.9 Type 2 diabetes mellitus without complications; Z86.718 Personal history of other venous thrombosis and embolism; Z88.2 Allergy status to sulfonamides; Z91.19 Patient's noncompliance with other medical treatment and regimen
CPT/HCPCS: 36415-UA; 73140-TC-FA; 80053-TC; 80061-TC; 80307; 81001-TC; 81003-TC; 82948-90; 83036-90; 84484-TC; 85007-TC; 85025-TC; 85610-TC; G0410; J1200; J1630; J1815; J2060; J7799; Z7610

== ENCOUNTER 2018-08-27 19:05 | Inpatient (IN) | payer MEDICARE, MEDICAID ==
[2018-08-27 19:37] LABS: % BASOPHILS 0.4 % (0.0-2.0); % EOSINOPHILS 0.9 % (0.0-5.0); % MONOCYTES 12.6 % (2.0-10.0); % NEUTROPHILS 29.1 % (40.0-80.0); EOSINOPHILE ABSOLUTE 0.1 Th/cmm (0.1-0.4); HEMATOCRIT 38.4 % (41.0-60); HEMOGLOBIN 12.8 gm/dL (12-16); LYMPHOCYTE ABSOLUTE 3.4 Th/cmm (1.5-3.0); MEAN CELL VOLUME 97.2 fl (81-100); MEAN CORPUSCULAR HEMOGLOBIN 32.5 pg (27.0-31.0); MEAN CORPUSCULAR HGB CONC 33.4 pg (28.0-36.0); MEAN PLATELET VOLUME 8.2 fl; MONOCYTE ABSOLUTE 0.7 Th/cmm (0.3-1.0); NEUTROPHILE ABSOLUTE 1.7 Th/cmm (1.8-8.0); PLATELET COUNT 197 Th/cmm (150-400); RED BLOOD COUNT 3.95 Mil/cmm (3.80-5.10); RED CELL DISTRIBUTION WIDTH 11.9 % (11.5-20.0); WHITE BLOOD COUNT 5.9 Th/cmm (4.8-10.8)
[2018-08-27 19:44] LABS: URINE SOURCE CLEAN C
[2018-08-27 19:45] LABS: URINE BILIRUBIN NEGATIVE (NEGATIVE); URINE BLOOD NEGATIVE (NEGATIVE); URINE GLUCOSE (UA) NEGATIVE (NEGATIVE); URINE KETONE NEGATIVE (NEGATIVE); URINE LEUKOCYTE ESTERASE NEGATIVE (NEGATIVE); URINE NITRATE NEGATIVE (NEGATIVE); URINE PH 5.5 (4.6 - 8.0); URINE PROTEIN NEGATIVE (NEGATIVE)
[2018-08-27 19:52] LABS: ANION GAP 10.2 (7.0-16.0); BUN - UREA NITROGEN 11 mg/dL (7-25); CALCIUM SERUM 9.3 mg/dL (8.6-10.3); CARBON DIOXIDE 29.3 mEq/L (21.0-31.0); CHLORIDE 100 mEq/L (98-107); CREATININE - SERUM 0.8 mg/dL (0.6-1.2); GFR AFRICAN-AMERICAN > 60.0 ml/min (>90); GFR NON AFRICAN-AMERICAN > 60.0 ml/min; GLUCOSE 152 mg/dL (70-105); POTASSIUM SERUM 3.5 mEq/L (3.5-5.1); SODIUM SERUM 136 mEq/L (136-145)
[2018-08-27 19:53] LABS: URINE CLARITY CLEAR (CLEAR); URINE COLOR YELLOW; URINE MICROSCOPIC INDICATED? YES
[2018-08-27 19:58] LABS: URINE BACTERIA FEW /hpf (NONE SEEN); URINE EPITHELIAL CELLS MODERATE /lpf (FEW); URINE RBC 0-2 /hpf (0-5)
--- NOTE | 2018-08-27 20:14 | ED Physician Chart ---
ED Chief Complaint/HPI - Patient Information Date Seen:: 08/27/18 Time Seen:: 20:10 Chief Complaint:: agitation History of Present Illness:: 53 yr old bf here for geropsych evaluation pt appears homeless hauling a cart with bags of belongings Allergies:: Allergies Allergy/AdvReac Type Severity Reaction Status Date / Time Sulfa (Sulfonamide Allergy Verified 06/22/18 22:45 Antibiotics) Vitals:: Vital Signs - 8 hr 08/27/18 19:30 Temp 98.1 F HR 89 RR 18 BP 115/72 O2 Sat % 97 ED Review of Systems - Review of Systems General/Constitutional: No fever, No chills, No weight loss, No weakness, No diaphoresis, No edema, No loss of appetite Skin: No skin lesions, No rash, No bruising Head: No headache, No light-headedness Eyes: No loss of vision, No pain, No diplopia ENT: No earache, No nasal drainage, No sore throat, No tinnitus Neck: No neck pain, No swelling, No thyromegaly, No stiffness, No mass noted Cardio Vascular: No chest pain, No palpitations, No PND, No orthopnea, No edema Pulmonary: No SOB, No cough, No sputum, No wheezing GI: No nausea, No vomiting, No diarrhea, No pain, No melena, No hematochezia, No constipation, No hematemesis G/U: No dysuria, No frequency, No hematuria Musculoskeletal: No bone or joint pain, No back pain, No muscle pain Endocrine: No polyuria, No polydipsia Psychiatric: No prior psych history, No depression, No anxiety, No suicidal ideation Hematopoietic: No bruising, No lymphadenopathy Allergic/Immuno: No urticaria, No angioedema Neurological: No syncope, No focal symptoms, No weakness, No paresthesia, No headache, No seizure, No dizziness, No confusion, No vertigo ED Past Medical History - Past Medical History Past Medical History: HTN (iddm schizo), DM, Other (see nursing notes) Psychiatricy History: Schizophrenia Family Medical History - Family Member Mother History Unknown: Yes ED Physical Exam - Physical Examination General/Constitutional: Awake, Well-developed, well-nourished, Alert, No distress, GCS 15, Non-toxic appearing, Ambulatory Head: Atraumatic Eyes: Lids, conjuctiva normal, PERRL, EOMI Skin: Nl inspection, No rash, No skin lesions, No ecchymosis, Well hydrated, No lymphadenopathy ENMT: External ears, nose nl, Nasal exam nl, Lips, teeth, gums nl Neck: Nontender, Full ROM w/o pain, No JVD, No nuchal rigidity, No bruit, No mass, No stridor Respiratory: Nl effort/Exclusion, Clear to Auscultation, No Wheeze/Rhonchi/Rales Cardio Vascular: RRR, No murmur, gallop, rubs, NL S1 S2 GI: No tenderness/rebounding/guarding, No organomegaly, No hernia, Normal BS's, Nondistended, No mass/bruits, No McBurney tenderness : No CVA tenderness Extremities: No tenderness or effusion, Full ROM, normal strength in all extremities, No edema, Normal digits & nails Neuro/Psych: Alert/oriented, DTR's symmetric, Normal sensory exam, Normal motor strength, Judgement/insight normal, Mood normal, Normal gait, No focal deficits Misc: Normal back, No paraspinal tenderness ED Labs/Radiology/EKG Results - Lab Results Results: Laboratory Tests 08/27/18 08/27/18 08/27/18 19:25 19:25 19:30 WBC 5.9 RBC 3.95 Hgb 12.8 Hct 38.4 L MCV 97.2 MCH 32.5 H MCHC Differential 33.4 RDW 11.9 Plt Count 197 MPV 8.2 Neutrophils % 29.1 L Lymphocytes % 57.0 H Monocytes % 12.6 H Eosinophils % 0.9 Basophils % 0.4 Sodium 136 Potassium 3.5 Chloride 100 Carbon Dioxide 29.3 Anion Gap 10.2 BUN 11 Creatinine 0.8 Est GFR ( Amer) > 60.0 Est GFR (Non-Af Amer) > 60.0 BUN/Creatinine Ratio 13.8 Glucose 152 H Calcium 9.3 Urine Source CLEAN C Urine Color YELLOW Urine Clarity CLEAR Urine pH 5.5 Ur Specific [place] 1.020 Urine Protein NEGATIVE Urine Glucose (UA) NEGATIVE Urine Ketones NEGATIVE Urine Blood NEGATIVE Urine Nitrate NEGATIVE Urine Bilirubin NEGATIVE Urine Urobilinogen 1.0 Ur Leukocyte Esterase NEGATIVE Urine RBC 0-2 Urine WBC 2-5 Ur Epithelial Cells MODERATE Urine Bacteria FEW ED Assessment - Assessment General Assessment: agitation psychosis for geropsych eval ED Septic Shock - . Is Septic Shock (SBP<90, OR Lactate>4 mmol\L) present?: No - <6hrs of presentation: Vital Signs: Vital Signs - 8 hr 08/27/18 19:30 Temp 98.1 F HR 89 RR 18 BP 115/72 O2 Sat % 97 ED Reassessment (Disposition) - Reassessment Reassessment:: psychosis naren psych clearance - Diagnosis Diagnosis:: as above - Patient Disposition Discharge/Transfer:: Acute Care w/in this hosp Condition at Disposition:: Stable
[2018-08-27 21:34] VITALS: BP 124/71
[2018-08-27] MEDS ORDERED: Magnesium Hydroxide (MOM) 30 mL UDC PO PRN (21:39)
[2018-08-28 02:21] LABS: CHOLESTEROL 93 mg/dL (<200); HDL -HIGH DENSITY LIPOPROTEIN 33 mg/dL (23-92); TRIGLYCERIDES 100 mg/dL (<150)
[2018-08-28] MEDS: Hydrocodone/APAP 10 mg/325 mg Tab PO PRN (02:44)
[2018-08-28] MEDS: Pantoprazole 40 mg EC Tab PO SCH (06:33)
[2018-08-28] MEDS: INSULIN LISPRO SLIDING SCALE 100 UNITS/ML UNIT SUBQ SCH ×4 (06:47→21:26)
[2018-08-28] MEDS: Benztropine 1 MG TAB PO SCH ×2 (08:48→16:33)
[2018-08-28] MEDS: Aspirin 81mg Chewable Tab PO SCH (08:51)
--- NOTE | 2018-08-28 14:48 | History & Physical ---
ADMIT DATE: 08/28/[address] Gonzalez. CHIEF COMPLAINT: Agitation. HISTORY OF PRESENT ILLNESS: This is a 53-year-old female who is a long term resident, admitted to the Geropsych Unit due to agitation. PAST MEDICAL HISTORY: Hypertension, diabetes. FAMILY HISTORY: Noncontributory. SOCIAL HISTORY: The patient is homeless. REVIEW OF SYSTEMS: GENERAL: Denies any fever or chills. CARDIOVASCULAR: Denies chest pain. RESPIRATORY: Denies shortness of breath. GASTROINTESTINAL: Denies nausea, vomiting, abdominal pain. GENITOURINARY: Denies increased frequency or dysuria. NEUROLOGIC: No headaches, seizures, or syncope. All other systems are reviewed and are negative. PHYSICAL EXAMINATION: GENERAL: The patient is well developed, well nourished, in no apparent distress. VITAL SIGNS: Temperature 98.2, heart rate 67, blood pressure 113/79. NECK: Supple. No mass. LUNGS: Clear bilaterally. HEART: Regular rate and rhythm. ABDOMEN: Soft, nontender. GENITOURINARY, RECTAL, GENITALIA: The patient refused. EXTREMITIES: No clubbing, cyanosis, or edema. NEUROLOGIC: The patient is alert. LABORATORY DATA: WBC 5.9, H and H 12.8 and 38.4, platelet of 197. Sodium 136, potassium 3.5, chloride 100, BUN 11, creatinine 0.8. ASSESSMENT: Hypertension, agitation, coronary artery disease. PLAN: We will continue the patient's home medications, safety precautions, fall precautions will be initiated. We will continue to monitor this patient. [facility]# [id number]
[2018-08-28] MEDS: Insulin Glargine 100 units/ml 10ml Vial SUBQ SCH (21:25)
[2018-08-28] MEDS: Atorvastatin Calcium 10 MG TAB PO SCH (21:41)
[2018-08-29] MEDS: Pantoprazole 40 mg EC Tab PO SCH (06:31)
[2018-08-29] MEDS: INSULIN LISPRO SLIDING SCALE 100 UNITS/ML UNIT SUBQ SCH ×4 (06:43→20:17)
--- NOTE | 2018-08-29 07:03 | Psychiatric Evaluation ---
DATE OF SERVICE: 08/27/2018 IDENTIFYING DATA: The patient is a 53-year-old -[place] woman diagnosed to have schizoaffective disorder and was hospitalized here recently and has been referred from the [facility] in view of her acute agitation and psychosis. Prior to the hospitalization, the patient has been on Haldol and Seroquel, but still the patient has been getting easily agitated and not able to follow through. 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 The patient is reported to have been verbally abusive. The patient is referred over here for stabilization. PAST PSYCHIATRIC HISTORY: Please refer to the above. MEDICAL HISTORY: Physical examination is requested to be done by Dr. Gonzalez. SUBSTANCE ABUSE HISTORY: None. PHYSICAL OR SEXUAL ABUSE HISTORY: None. LEGAL PROBLEMS: None at this time. MENTAL STATUS EXAMINATION: The patient is a 53-year-old, looking her stated age, superficially cooperative. Eye contact is poor. Mood is noted to be irritable. Affect is constricted. Insight and judgment are very impaired. Impulse control is noted to be poor. Coping skills are also noted to be very poor. The patient has been stating that her life is in danger and she does not want to go back to the same facility and is insisting that I need to send her to a different one, if she were to go home. The patient at this time is not able to contract for safety. The patient's insight and judgment at this time are noted to be very much impaired. Impulse control is noted to be poor. The patient is extremely paranoid and is getting easily irritable, even when giving the information. The patient is not presenting with any side effects to the medications. Attention span and concentration are noted to be poor. DIAGNOSTIC IMPRESSION: AXIS I: Schizoaffective disorder. AXIS II: None. AXIS III: As per Dr. Gonzalez. IMMEDIATE TREATMENT PLAN: The patient is going to be continued on the Seroquel, which is given 200 mg 3 times a day. The patient is going to be continued on the Haldol to 5 mg t.i.d. as ordered and the patient is going to be continued on the ____ acid and the patient is going to be closely monitored with the medications. Once stabilized, the patient is going to be discharged to self to be followed up on an outpatient basis. [facility]# [id number]
[2018-08-29] MEDS: Aspirin 81mg Chewable Tab PO SCH (08:26)
[2018-08-29] MEDS: Benztropine 1 MG TAB PO SCH ×2 (08:27→16:45)
--- NOTE | 2018-08-29 15:04 | Progress Notes ---
DATE: 08/29/2018 SUBJECTIVE: Staff was spoken to. The patient is interviewed. Mood is noted to be irritable. Affect is constricted. The patient's insight and judgment at this time are noted to be still impaired. The patient is very intrusive stating that she needs to go to her mother in [place] and does not want to go to the previous placement. Staff are reporting that the patient cannot be sent to a different facility because the patient has ____ and she has to go back to the same place where she came from. The case resolution specialist has been working with the facility at this time. The patient continues to be paranoid and intrusive. ASSESSMENT: The patient is still impulsive. PLAN: To continue the patient with the supportive therapy and followup. JOB# [id number]
[2018-08-29] MEDS: Insulin Glargine 100 units/ml 10ml Vial SUBQ SCH (20:19)
[2018-08-29] MEDS: Atorvastatin Calcium 10 MG TAB PO SCH (20:31)
[2018-08-29] MEDS: Hydrocodone/APAP 10 mg/325 mg Tab PO PRN (22:45)
[2018-08-30] MEDS: INSULIN LISPRO SLIDING SCALE 100 UNITS/ML UNIT SUBQ SCH ×4 (06:45→22:00)
[2018-08-30] MEDS: Pantoprazole 40 mg EC Tab PO SCH (06:49)
[2018-08-30] MEDS: Aspirin 81mg Chewable Tab PO SCH (08:51)
[2018-08-30] MEDS: Benztropine 1 MG TAB PO SCH ×2 (08:51→17:16)
--- NOTE | 2018-08-30 11:48 | Progress Notes ---
DATE: 08/30/2018 SUBJECTIVE: Staff was spoken to. The patient is interviewed. Mood is noted to be irritable. Affect is constricted. Insight and judgment noted to be still impaired. Impulse control is very poor. Coping skills are also noted to be poor. The patient has been having difficult time to cope with the stress. The patient has no insight into her illness. ASSESSMENT: The patient is still psychotic and staff are trying to see if they can get the patient back to the facility and the patient at this time is stating that she does not want to go back and wants to go to her mother's place in [place]. The patient has no insight into her illness. The patient is still impulsive and paranoid. PLAN: To continue the patient with the supportive therapy, encouraged the patient to verbalize the concerns rather than to act out. Please note that the patient is not ready to be discharged to the lower level of care yet. [facility]# [id number]
--- NOTE | 2018-08-30 12:05 | Internal Medicine Prog Note ---
Internal Medicine Subjective - Subjective Service Date: 08/30/18 Patient seen and examined:: with staff Patient is:: awake Per staff patient has:: tolerating meds Internal Medicine Objective - Results Result Diagrams: 08/27/18 19:08/27/18 19: Recent Labs: Laboratory Last Values WBC 5.9 Th/cmm (4.8-10.8) 08/27/18 19: RBC 3.95 Mil/cmm (3.80-5.10) 08/27/18 19: Hgb 12.8 gm/dL (12-16) 08/27/18: Hct 38.4 % (41.0-60) L 08/27/18: MCV 97.2 fl (81-100) 08/27/18: MCH 32.5 pg (27.0-31.0) H 08/27/18: MCHC Differential 33.4 pg (28.0-36.0) 08/27/18: RDW 11.9 % (11.5-20.0) 08/27/18: Plt Count 197 Th/cmm (150-400) 08/27/18 19:25 MPV 8.2 fl 08/27/18 19:25 Neutrophils % 29.1 % (40.0-80.0) L 08/27/18: Lymphocytes % 57.0 % (20.0-50.0) H 08/27/18: Monocytes % 12.6 % (2.0-10.0) H 08/27/18: Eosinophils % 0.9 % (0.0-5.0) 08/27/18: Basophils % 0.4 % (0.0-2.0) 08/27/18 19:25 Sodium 136 mEq/L (136-145) 08/27/18 19:25 Potassium 3.5 mEq/L (3.5-5.1) 08/27/18 19:25 Chloride 100 mEq/L (98-107) 08/27/18 19:25 Carbon Dioxide 29.3 mEq/L (21.0-31.0) 08/27/18 19:25 Anion Gap 10.2 (7.0-16.0) 08/27/18 19:25 BUN 11 mg/dL (7-25) 08/27/18 19: Creatinine 0.8 mg/dL (0.6-1.2) 08/27/18 19:25 Est GFR ( Amer) > 60.0 ml/min (>90) 08/27/18 19:25 Est GFR (Non-Af Amer) > 60.0 ml/min 08/27/18 19: BUN/Creatinine Ratio 13.8 08/27/18 19: Glucose 152 mg/dL (70-105) H 08/27/18 19: POC Glucose 157 MG/DL (70 - 105) H 08/30/18 06:38 Calcium 9.3 mg/dL (8.6-10.3) 08/27/18: Triglycerides 100 mg/dL (<150) 08/27/18 19: Cholesterol 93 mg/dL (<200) 08/27/18: LDL Cholesterol Direct 44 mg/dL (75-193) L 08/27/18: HDL Cholesterol 33 mg/dL (23-92) 08/27/18 19:25 Urine Source CLEAN C 08/27/18 19:30 Urine Color YELLOW 08/27/18 19: Urine Clarity CLEAR (CLEAR) 08/27/18 19: Urine pH 5.5 (4.6 - 8.0) 08/27/18 19: Ur Specific [place] 1.020 (1.005-1.030) 08/27/18 19:30 Urine Protein NEGATIVE mg/dL (NEGATIVE) 08/27/18: Urine Glucose (UA) NEGATIVE mg/dL (NEGATIVE) 08/27/18 19: Urine Ketones NEGATIVE mg/dL (NEGATIVE) 08/27/18 19: Urine Blood NEGATIVE (NEGATIVE) 08/27/18 19: Urine Nitrate NEGATIVE (NEGATIVE) 08/27/18 19: Urine Bilirubin NEGATIVE (NEGATIVE) 08/27/18 19: Urine Urobilinogen 1.0 E.U./dL (0.2 - 1.0) 08/27/18 19: Ur Leukocyte Esterase NEGATIVE (NEGATIVE) 08/27/18 19: Urine RBC 0-2 /hpf (0-5) 08/27/18 19: Urine WBC 2-5 /hpf (0-5) 08/27/18 19:30 Ur Epithelial Cells MODERATE /lpf (FEW) 08/27/18 19:30 Urine Bacteria FEW /hpf (NONE SEEN) 08/27/18 19:30 - Physical Exam Vitals and I&O: Vital Signs Temp 97.1 F 08/30/18 06:39 Pulse 70 08/30/18 08:52 Resp 20 08/30/18 06:39 BP 106/63 08/30/18 08:52 Pulse Ox 96 08/30/18 06:39 Intake & Output 08/29/18 08/30/18 08/30/18 18:59 06:59 18:59 Intake Total 1200 120 Balance 1200 120 Intake: Oral 1200 120 Other: # Voids 3 # Bowel Movements 1 Active Medications: Current Medications Acetaminophen (Tylenol) 650 mg PO Q4HR PRN PRN Reason: MILD PAIN Stop: 10/26/18 21:38 Acetaminophen/Hydrocodone Bitart ([place] 10 Mg/325 Mg) 1 tab PO Q6H PRN PRN Reason: Pain (Severe) Stop: 10/26/18 21:38 Last Admin: 08/29/18 22:45 Dose: 1 tab Aspirin (Aspirin Chewable) 81 mg PO DAILY [facility] Stop: 10/27/18 08:59 Last Admin: 08/30/18 08:51 Dose: 81 mg Atorvastatin Calcium (Lipitor) 20 mg PO HS [facility] Stop: 10/27/18 20:59 Last Admin: 08/29/18 20:31 Dose: 20 mg Benztropine Mesylate (Cogentin) 1 mg PO BID [facility] Stop: 10/27/18 08:59 Last Admin: 08/30/18 08:51 Dose: 1 mg Carvedilol (Coreg) 3.125 mg PO BIDWM [facility] Stop: 10/27/18 07:59 Last Admin: 08/30/18 08:52 Dose: 3.125 mg Cyclobenzaprine HCl (Flexeril) 10 mg PO DAILY [facility] Stop: 10/27/18 08:59 Last Admin: 08/30/18 08:54 Dose: 10 mg Divalproex Sodium (Depakote Dr) 500 mg PO BID [facility]; Protocol Stop: 10/27/18 08:59 Last Admin: 08/30/18 08:52 Dose: 500 mg Docusate Sodium (Colace) 100 mg PO DAILY [facility] Stop: 10/27/18 08:59 Last Admin: 08/30/18 08:50 Dose: 100 mg Folic Acid (Folate) 1 mg PO DAILY [facility] Stop: 10/27/18 08:59 Last Admin: 08/30/18 08:51 Dose: 1 mg Furosemide (Lasix) 20 mg PO BID [facility] Stop: 10/27/18 08:59 Last Admin: 08/30/18 08:54 Dose: 20 mg Haloperidol (Haldol) 5 mg PO TID [facility]; Protocol Stop: 10/27/18 08:59 Last Admin: 08/30/18 08:54 Dose: 5 mg Ibuprofen (Motrin) 600 mg PO Q8H PRN PRN Reason: PAIN ON LEFT THUMB Stop: 10/26/18 21:38 Insulin Glargine (Lantus Insulin) 15 units SUBQ HS [facility] Stop: 10/27/18 20:59 Last Admin: 08/29/18 20:19 Dose: 15 unit Insulin Human Lispro (Humalog Insulin Sliding Scale) 0 units SUBQ ACHS [facility]; Protocol Stop: 10/27/18 07:29 Last Admin: 08/30/18 06:45 Dose: 4 units Lisinopril (Zestril) 10 mg PO DAILY [facility] Stop: 10/27/18 08:59 Last Admin: 08/30/18 08:50 Dose: 10 mg Lorazepam (Ativan) 1 mg PO Q8H PRN; Protocol PRN Reason: Restlessness Stop: 10/26/18 21:49 Last Admin: 08/30/18 08:53 Dose: 1 mg Magnesium Hydroxide (Milk Of Magnesia) 30 ml PO DAILY PRN PRN Reason: Constipation Stop: 10/26/18 21:38 Last Admin: 08/29/18 16:45 Dose: 30 ml Pantoprazole Sodium (Protonix) 40 mg PO QDAC [facility] Stop: 10/27/18 07:29 Last Admin: 08/30/18 06:49 Dose: 40 mg Quetiapine Fumarate (Seroquel) 200 mg PO TID [facility]; Protocol Stop: 10/27/18 08:59 Last Admin: 08/30/18 08:52 Dose: 200 mg Tizanidine HCl (Zanaflex) 2 mg PO Q8H PRN PRN Reason: MUSCLE RELAXANT General: alert HEENT: NC/AT, PERRLA Neck: Supple Lungs: CTAB Abdomen: soft, non-tender, non-distended Internal Medicine Assmt/Plan - Assessment Assessment: htn agitation cad - Plan Plan: safety precautions fall precautions cpm
[2018-08-30] MEDS: Hydrocodone/APAP 10 mg/325 mg Tab PO PRN (14:49)
[2018-08-30] MEDS: Insulin Glargine 100 units/ml 10ml Vial SUBQ SCH (21:00)
[2018-08-30] MEDS: Atorvastatin Calcium 10 MG TAB PO SCH (22:00)
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
[2018-08-31] MEDS: INSULIN LISPRO SLIDING SCALE 100 UNITS/ML UNIT SUBQ SCH ×2 (06:30→11:48)
[2018-08-31] MEDS: Pantoprazole 40 mg EC Tab PO SCH (06:38)
[2018-08-31] MEDS: Benztropine 1 MG TAB PO SCH (09:19)
[2018-08-31] MEDS: Aspirin 81mg Chewable Tab PO SCH (09:20)
--- NOTE | 2018-08-31 12:32 | Internal Medicine Prog Note ---
Internal Medicine Subjective - Subjective Patient seen and examined:: chart reviewed (pt. awake, alert, easily irritable ) Patient is:: awake, agitated Per staff patient has:: agitated, tolerating meds Internal Medicine Objective - Results Result Diagrams: 08/27/18 19:25 08/27/18 19: Recent Labs: Laboratory Last Values WBC 5.9 Th/cmm (4.8-10.8) 08/27/18: RBC 3.95 Mil/cmm (3.80-5.10) 08/27/18 19: Hgb 12.8 gm/dL (12-16) 08/27/18: Hct 38.4 % (41.0-60) L 08/27/18: MCV 97.2 fl (81-100) 08/27/18: MCH 32.5 pg (27.0-31.0) H 08/27/18: MCHC Differential 33.4 pg (28.0-36.0) 08/27/18: RDW 11.9 % (11.5-20.0) 08/27/18: Plt Count 197 Th/cmm (150-400) 08/27/18: MPV 8.2 fl 08/27/18: Neutrophils % 29.1 % (40.0-80.0) L 08/27/18 19: Lymphocytes % 57.0 % (20.0-50.0) H 08/27/18: Monocytes % 12.6 % (2.0-10.0) H 08/27/18: Eosinophils % 0.9 % (0.0-5.0) 08/27/18: Basophils % 0.4 % (0.0-2.0) 08/27/18 19:25 Sodium 136 mEq/L (136-145) 08/27/18 19:25 Potassium 3.5 mEq/L (3.5-5.1) 08/27/18: Chloride 100 mEq/L (98-107) 08/27/18 19: Carbon Dioxide 29.3 mEq/L (21.0-31.0) 08/27/18: Anion Gap 10.2 (7.0-16.0) 08/27/18 19:25 BUN 11 mg/dL (7-25) 08/27/18 19:25 Creatinine 0.8 mg/dL (0.6-1.2) 08/27/18 19:25 Est GFR ( Amer) > 60.0 ml/min (>90) 08/27/18 19:25 Est GFR (Non-Af Amer) > 60.0 ml/min 08/27/18 19:25 BUN/Creatinine Ratio 13.8 08/27/18 19:25 Glucose 152 mg/dL (70-105) H 08/27/18 19:25 POC Glucose 114 MG/DL (70 - 105) H 08/31/18 11:45 Calcium 9.3 mg/dL (8.6-10.3) 08/27/18 19:25 Triglycerides 100 mg/dL (<150) 08/27/18 19:25 Cholesterol 93 mg/dL (<200) 08/27/18 19:25 LDL Cholesterol Direct 44 mg/dL (75-193) L 08/27/18 19:25 HDL Cholesterol 33 mg/dL (23-92) 08/27/18 19:25 Urine Source CLEAN C 08/27/18 19:30 Urine Color YELLOW 08/27/18 19: Urine Clarity CLEAR (CLEAR) 08/27/18 19: Urine pH 5.5 (4.6 - 8.0) 08/27/18 19: Ur Specific [place] 1.020 (1.005-1.030) 08/27/18 19:30 Urine Protein NEGATIVE mg/dL (NEGATIVE) 08/27/18 19: Urine Glucose (UA) NEGATIVE mg/dL (NEGATIVE) 08/27/18 19:30 Urine Ketones NEGATIVE mg/dL (NEGATIVE) 08/27/18 19:30 Urine Blood NEGATIVE (NEGATIVE) 08/27/18 19: Urine Nitrate NEGATIVE (NEGATIVE) 08/27/18 19: Urine Bilirubin NEGATIVE (NEGATIVE) 08/27/18 19: Urine Urobilinogen 1.0 E.U./dL (0.2 - 1.0) 08/27/18 19:30 Ur Leukocyte Esterase NEGATIVE (NEGATIVE) 08/27/18 19:30 Urine RBC 0-2 /hpf (0-5) 08/27/18 19:30 Urine WBC 2-5 /hpf (0-5) 08/27/18 19:30 Ur Epithelial Cells MODERATE /lpf (FEW) 08/27/18 19:30 Urine Bacteria FEW /hpf (NONE SEEN) 08/27/18 19:30 - Physical Exam Vitals and I&O: Vital Signs Temp 97.6 F 08/31/18 06:28 Pulse 83 08/31/18 09:20 Resp 19 08/31/18 06:28 BP 116/75 08/31/18 09:20 Pulse Ox 98 08/31/18 06:28 Intake & Output 08/30/18 08/31/18 08/31/18 18:59 06:59 18:59 Intake Total 1000 120 Balance 1000 120 Intake: Oral 1000 120 Other: # Voids 4 3 # Bowel Movements 1 Active Medications: Current Medications Acetaminophen (Tylenol) 650 mg PO Q4HR PRN PRN Reason: MILD PAIN Stop: 10/26/18 21:38 Acetaminophen/Hydrocodone Bitart ([place] 10 Mg/325 Mg) 1 tab PO Q6H PRN PRN Reason: Pain (Severe) Stop: 10/26/18 21:38 Last Admin: 08/30/18 14:49 Dose: 1 tab Aspirin (Aspirin Chewable) 81 mg PO DAILY [facility] Stop: 10/27/18 08:59 Last Admin: 08/31/18 09:20 Dose: 81 mg Atorvastatin Calcium (Lipitor) 20 mg PO HS [facility] Stop: 10/27/18 20:59 Last Admin: 08/30/18 22:00 Dose: 20 mg Benztropine Mesylate (Cogentin) 1 mg PO BID [facility] Stop: 10/27/18 08:59 Last Admin: 08/31/18 09:19 Dose: 1 mg Carvedilol (Coreg) 3.125 mg PO BIDWM [facility] Stop: 10/27/18 07:59 Last Admin: 08/31/18 09:18 Dose: 3.125 mg Cyclobenzaprine HCl (Flexeril) 10 mg PO DAILY [facility] Stop: 10/27/18 08:59 Last Admin: 08/31/18 09:19 Dose: 10 mg Divalproex Sodium (Depakote Dr) 500 mg PO BID [facility]; Protocol Stop: 10/27/18 08:59 Last Admin: 08/31/18 09:17 Dose: 500 mg Docusate Sodium (Colace) 100 mg PO DAILY [facility] Stop: 10/27/18 08:59 Last Admin: 08/31/18 09:20 Dose: 100 mg Folic Acid (Folate) 1 mg PO DAILY [facility] Stop: 10/27/18 08:59 Last Admin: 08/31/18 09:19 Dose: 1 mg Furosemide (Lasix) 20 mg PO BID [facility] Stop: 10/27/18 08:59 Last Admin: 08/31/18 09:18 Dose: 20 mg Haloperidol (Haldol) 5 mg PO TID [facility]; Protocol Stop: 10/27/18 08:59 Last Admin: 08/31/18 09:19 Dose: 5 mg Ibuprofen (Motrin) 600 mg PO Q8H PRN PRN Reason: PAIN ON LEFT THUMB Stop: 10/26/18 21:38 Insulin Glargine (Lantus Insulin) 15 units SUBQ HS [facility] Stop: 10/27/18 20:59 Last Admin: 08/30/18 21:00 Dose: 15 unit Insulin Human Lispro (Humalog Insulin Sliding Scale) 0 units SUBQ ACHS [facility]; Protocol Stop: 10/27/18 07:29 Last Admin: 08/31/18 11:48 Dose: Not Given Lisinopril (Zestril) 10 mg PO DAILY [facility] Stop: 10/27/18 08:59 Last Admin: 08/31/18 09:20 Dose: 10 mg Lorazepam (Ativan) 1 mg PO Q8H PRN; Protocol PRN Reason: Restlessness Stop: 10/26/18 21:49 Last Admin: 08/30/18 17:17 Dose: 1 mg Magnesium Hydroxide (Milk Of Magnesia) 30 ml PO DAILY PRN PRN Reason: Constipation Stop: 10/26/18 21:38 Last Admin: 08/29/18 16:45 Dose: 30 ml Pantoprazole Sodium (Protonix) 40 mg PO QDAC [facility] Stop: 10/27/18 07:29 Last Admin: 08/31/18 06:38 Dose: 40 mg Quetiapine Fumarate (Seroquel) 200 mg PO TID [facility]; Protocol Stop: 10/27/18 08:59 Last Admin: 08/31/18 09:19 Dose: 200 mg Tizanidine HCl (Zanaflex) 2 mg PO Q8H PRN PRN Reason: MUSCLE RELAXANT Last Admin: 08/30/18 23:27 Dose: 2 mg General: alert HEENT: NC/AT, PERRLA Neck: Supple Lungs: CTAB Abdomen: soft, non-tender, non-distended Internal Medicine Assmt/Plan - Assessment Assessment: htn agitation cad - Plan Plan: as per psych will monitor pt. cpm Nutritional Asmnt/Malnutr-PDOC - Dietary Evaluation Malnutrition Findings (Please click <Entered> for more info): Nutritional Asmnt/Malnutrition Start: 08/31/18 10: 44 Text: Status: Active Freq: Protocol: Document 08/31/18 10:44 LCCELESTINEG (Rec: 08/31/18 10:53 LCCELESTINEG [email or web address]) Nutritional Asmnt/Malnutrition Patient General Information Nutritional Screening Moderate Risk Diagnosis psychosis Pertinent Medical Hx/Surgical Hx HTN, schizophrenia, DM Subjective Information Per EMR, PO intake 100%. Current Diet Order/ Nutrition Support CCHO, LEANNE Pertinent Medications lipitor, colace, folate, lasix , lantus, humalog, protonix, seroquel Pertinent Labs 08/30-08/31 POC 84-231 08/27 glucose 152 Nutritional Hx/Data Height 1.63 m Height (Calculated Centimeters) 162.6 Current Weight (lbs) 98.883 kg Weight (Calculated Kilograms) 98.9 Weight (Calculated Grams) 62612.1 [place] Body Weight 120 Body Mass Index (BMI) 37.4 Weight Status Obese GI Symptoms Last BM 08/30 Skin Integrity/Comment: dryness Current %PO Good (75-100%) Nutritional Problem 1. Problem Problem altered nutrition related labs Etiology hyperglycemia Signs/Symptoms: POC 84-231, glucose 152 Malnutrition Alert Is there a minimum of two criteria No selected? Query Text:Check all the applicable criteria. A minimum of two criteria are recommended for diagnosis of either severe or non-severe malnutrition. Malnutrition Related to Morbid Obesity Malnutrition related to morbid obesity No Intervention/Recommendation Comments 1. Continue with current diet as ordered. 2. Monitor PO intake, wt, labs and skin integrity 3. F/U as Expected Outcomes/Goals Expected Outcomes/Goals 1. PO intake to meet at least 75% of nutritional needs. 2. Wt stability, skin to remain intact, labs to approach WNL.
--- NOTE | 2018-09-01 19:29 | Progress Notes ---
DATE: 08/30/2018 SUBJECTIVE: The patient is seen and is interviewed. Case is discussed with staff. The patient presents as guarded. Staff reports the patient is difficult to redirect at times with poor insight into her illness. The patient is tolerating the medication. OBJECTIVE: Mood is less irritable. Affect is constricted. Thought process shows to be confused. The patient denied any hallucinations or delusions. The patient's behavior includes impulsivity. ASSESSMENT AND PLAN: There is evidence of some paranoid ideation that persists. We provided reality orientation, differentiation and integration. We provided coping strategies for phase of life issues. We encouraged the patient to demonstrate emotional and self-regulation and to verbalize her concerns versus acting out and the patient is being considered for discharge tomorrow. We will continue the present treatment if the patient is still admitted on the unit. JOB# [id number] MTDD
== END 2018-08-31 15:15 | DRG 885 ==
LOC: ER 19:05 → GERO 20:02
DX: F25.9 Schizoaffective disorder, unspecified (principal); E11.9 Type 2 diabetes mellitus without complications; I25.10 Atherosclerotic heart disease of native coronary artery without angina pectoris; Z59.0 Homelessness; Z88.2 Allergy status to sulfonamides
CPT/HCPCS: 36415-UA; 80048-TC; 80061-TC; 81001-TC; 82948-90; 83036-90; 85007-TC; 85025-TC; J1815; Z7610